=== PATIENT | female | born 1955 | race Caucasian/White ===

== ENCOUNTER 2019-06-23 07:18 | Outpatient (CLI) | payer MEDICARE, SELFPAY | END 2019-06-23 07:19 | disposition home or self-care (01) | LOC: RT 07:24 | PROVIDERS: Family Provider Nurse Practitioner Family; Visit Provider Family Medicine | DX: J44.9 Chronic obstructive pulmonary disease, unspecified (principal); Z71.6 Tobacco abuse counseling; Z86.711 Personal history of pulmonary embolism; E46 Unspecified protein-calorie malnutrition; R10.9 Unspecified abdominal pain | CPT/HCPCS: 94060; 94729; J7611 ==

== ENCOUNTER 2019-12-15 21:03 | Inpatient (IN) | payer MEDICARE, SELFPAY ==
--- NOTE | 2019-12-15 21:10 | XRR_ITS ---
PROCEDURE INFORMATION: Exam: XR Right Humerus Exam date and time: 12/15/2019 10:09 PM Age: 64 years old Clinical indication: Injury or trauma; Fall; Initial encounter; Blunt trauma (contusions or hematomas; Shoulder and arm, upper; Right; Additional info: Fall, deformity TECHNIQUE: Imaging protocol: XR Right humerus Views: 2 or more views. COMPARISON: No relevant prior studies available. FINDINGS: Bones/joints: Acute fractures involving the right humeral neck and mid right humeral diaphysis with medial displacement of the humeral neck distal fracture fragment and lateral displacement of the diaphyseal distal fracture fragment. Osteopenia. Soft tissues: Soft tissue swelling. XR/[place] [id number] IMPRESSION: Acute fractures involving the right humeral neck and mid right humeral diaphysis with medial displacement of the humeral neck distal fracture fragment and lateral displacement of the diaphyseal distal fracture fragment.
[2019-12-15 21:19] VITALS: BP 50/37; PULSE 61; RESP 14; O2SAT 93; BMI 14.1
--- NOTE | 2019-12-15 21:25 | PC.NURSE ---
WARM BLANKETS PLACED ON PT.
--- NOTE | 2019-12-15 21:26 | ECG_ITS ---
[facility] Test Date: 2019-12-15 Pat Name: Anne Marie Underwood Department: Room: Gender: Female Kier Drier: : 1955 Requested By: Rachel Shlel Order Number: [id number] Jovan MD: Nayla Bah M.D. Measurements Intervals [place] Rate: 73 P: 84 NC: 221 QRS: 1 QRSD: 140 T: 87 QT: 504 QTc: 559 Interpretive Statements SINUS RHYTHM WITH FIRST DEGREE AV BLOCK WITH OCCASIONAL SUPRAVENTRICULAR PREMATURE COMPLEXES LEFT BUNDLE BRANCH BLOCK Compared to ECG 03/20/2019 02:11:19 First degree AV block now present Sinus tachycardia no longer present Electronically Signed On 12-16-2019 12:44:48 CDT by Nayla Bah M.D. [id number]
[2019-12-15] MEDS: sodium chloride 0.9% 1,000 ML 999 ML IV (21:30)
--- NOTE | 2019-12-15 21:36 | ED_ITS ---
HPI - Extremity Problem General: Chief complaint: Extremity Injury, Upper Stated complaint: FALL / POSS FX R HUMERUS Time Seen by Provider: 12/15/19 21:06 History of Present Illness: HPI Narrative: This patient is a 64-year-old female presenting with reported fall at home. She said she tripped over my own feet . She denies hitting her head or loss of consciousness. Her only complaint is pain in her right upper arm. She is intoxicated. She tells me daly t she does not drink every day. She said she only had 1 drink today. She denies any other complaints. She was noted to have a blood pressure of 50 systolic by EMS. Gave her a 500 mL's of normal saline and her blood pressure after that was 110 systolic. On transferring her to the ED cot her blood pressure is noted to be again in the 50s systolic. Her heart rate is in the 60s with that. She does not have any knowledge of her blood pressure running low normally. Patient's son came in and said that he saw her fall. He said she was walking away from anything she just tripped and fell. He saw her arm snap. He lives with her and says that she has been in her normal state of good health recently. He says she drinks occasionally. The only medical history that he knows of is her history of PE. Complaint: extremity pain Onset (ago): unknown Pain Consistency: constant Location: right and upper extremity Quality: sharp Radiation: none Relieving factors: immobilization Exacerbating factors: range of motion Associated symptoms: Deny chest pain, fever(s) or rash Review of Systems General: Reports: 10 or more systems reviewed and unremarkable except in HPI and below Narrative: Reliability of the review of systems is questionable as the patient is intoxicated and fairly lethargic. Const: Denies: fever(s), chills, fatigue or malaise Eyes: Denies: change in vision ENMT: Denies: odynophagia Card: Denies: chest pain or swelling of feet/ankles Resp: Denies: dyspnea, productive cough or non-productive cough GI: Denies: abdominal pain, nausea or vomiting : Denies: flank pain or difficulty voiding Musc: Denies: neck pain or back pain Skin/Breast: Denies: rash Neuro: Denies: headache(s), numbness in extremities or weakness in extremities Teja/Lymph: Denies: easy bruising or easy bleeding PFSH ED PFSH: Medical History Alcohol abuse COPD (chronic obstructive pulmonary disease) Depression Low back pain Occlusion of superior mesenteric artery Pulmonary embolism Surgical History History of appendectomy History of tonsillectomy History of tubal ligation Social History (Updated 12/16/19 @ 02:15 by Migue Jansen MD) Smoking and tobacco status: current every day smoker Alcohol intake: current Substance/Drug Use: never Physical Exam Const: COMMON NORMALS: no acute distress EXAM LIMITATIONS: altered mental status GENERAL APPEARANCE: disheveled, lethargic and frail appearing NUTRITIONAL APPEARANCE: underweight ORIENTATION/CONSCIOUSNESS: Yes lethargic HENMT: HEAD & SCALP: normal to inspection FACE & SINUS: normal facial exam Eye: GENERAL EYE: appearance normal, both eyes and all related structures Neck/C-Spine: COMMON NORMALS: supple, no meningeal signs and no JVD Chest: COMMONS NORMALS: normal inspection of the chest Resp: COMMON NORMALS: normal respiratory effort, No use of accessory muscles and clear to auscultation bilaterally AUSCULTATION: clear to auscultation bilaterally Cardio: COMMON NORMALS: no JVD, regular rate, regular rhythm and No murmurs present (Cardio) RATE: regular rate RHYTHM: regular rhythm GI: COMMON NORMALS: Normal to inspection, nondistended, normoactive bowel sounds present, Soft to palpation and non-tender INSPECTION: Yes normal to inspection AUSCULTATION: Yes normoactive bowel sounds PALPATION: Yes Soft to palpation Back/Pelvis: COMMON NORMALS: thoracic and lumbar spine normal to inspection Extremity: RIGHT UPPER EXTREMITY: Yes upper arm (Deformity, pain, swelling) Neuro: COMMON NORMALS: moves all extremities, no focal motor deficits and no sensory deficits noted SENSORIUM/ORIENTATION: Yes lethargic MENINGEAL SIGNS: Yes no meningeal signs Psych: COMMON NORMALS: cooperative ATTITUDE: Yes calm SPEECH: Yes minimal INSIGHT: Poor insight present (Psych) Skin: COMMON NORMALS: no rashes or lesions noted and turgor normal GENERAL SKIN EXAM: no rashes or lesions noted and turgor normal Course ED course: Patient will be admitted to Dr. Jansen to the ICU. I also spoke with Dr. So who will see her in consultation. She was holding her arm in a position of comfort with a Demarco splint and wrapped from EMS and we left it in this position. Her blood pressure did improve to over 100 systolic while in the department. Vital Signs: Vital signs: Vital Signs Temperature 99.3 F 12/16/19 10:45 Pulse Rate 94 12/16/19 14:25 Respiratory Rate 30 H 12/16/19 14:25 Blood Pressure 148/98 12/16/19 14:25 Pulse Oximetry 96 12/16/19 14:25 Critical Care Time Critical Care Time: Critical Care Time: Yes Total Critical Care Time: 45 Attestation: I provided 45 minutes of critical care time to this patient. This was reviewing lab results, calculating corrected lab results, repeating electrolytes and fluids. Frequent monitoring of blood pressure and mental status. Consultation with specialist. Obtaining further history from the patient's son. Review of prior records. MDM - Extremity (Nontraumatic) MDM Narrative: Medical decision making narrative: Fall with an obvious humerus fracture. She and her son both say that she did not pass out however her blood pressure on arrival was in the 50s systolic with a normal heart rate. Seems likely that she could have passed out related to that. She and her son both deny any recent illnesses. She had been given 500 mL's of fluid by EMS and was given the rest of that liter and another liter here in the ED. Her blood pressure did gradually improve to 100/65. Heart rate is now in the 70s. Sats are okay. Her labs reflect an alcohol level of 171. More concerning are her electrolytes which show a potassium of 2.2, magnesium of 1.1 and a calcium of 5.1 with the correction for a low albumin which is 1.5 the calcium is 7.4. I have ordered IV potassium, IV magnesium, IV calcium. I did give her a small dose of fentanyl for pain as her blood pressure improved. Her temperature on arrival was also noted to be low. Thyroid studies are pending. Sepsis is in the differential but I do not see any clear source of infection. I suspect this is more related to electrolyte abnormalities and malnutrition. Medical Records: Attestation: I reviewed the patient's medical records. Medical records narrative: History of PE in the past. Also prior medical records indicate that she is a daily drinker. Lab Data: Attestation: I reviewed the patient's lab results. Labs: Lab Results 12/15/19 12/15/19 12/15/19 Range/Units 00:16 21:28 21:28 WBC 4.3 (4.0-10.0) 10^3/ uL RBC 2.11 L (4.1-5.3) 10^6/u L Hgb 7.0 L (11.5-15.3) g/dL Hct 22.3 L (37.0-47.0) % MCV 105.7 H (81-99) fL MCH 33.2 (28.0-34.0) pg MCHC 31.4 (30.0-36.0) g/dL RDW 12.8 (12.1-15.1) % Plt Count 141 (130-400) 10^3/c mm MPV 10.4 (7.4-10.4) fL Neut % (Auto) 56.1 % Lymph % (Auto) 37.1 % Jerauld % (Auto) 5.6 % Eos % (Auto) 0.5 % Baso % (Auto) 0.2 % Neut # (Auto) 2.42 (1.8-7.7) 10^3/u L Lymph # (Auto) 1.6 (0.8-4.8) 10^3/u L Jerauld # (Auto) 0.2 (0.2-0.9) 10^3/u L Eos # (Auto) 0.0 (0.0-0.8) 10^3/u L Baso # (Auto) 0.0 (0.0-0.1) 10^3/u L Nucleated RBC % (a uto) 0 % Nucleated RBCs # 0.0 /100WBC PT (12.1-14.9) SECO NDS INR (0.8-1.2) D-Dimer (0-0.59) ug/mIFE U Sodium 134 L (136-145) mmol/L Potassium 2.2 L* (3.5-5.1) mmol/L Chloride 110 H (98-107) mmol/L Carbon Dioxide 16 L (22-29) mmol/L Anion Gap 10.2 (5-19) BUN 2 L (8-23) mg/dL Creatinine 0.3 L (0.5-0.9) mg/dL GFR Calculation 222.6 H (90-130) mL/min Glucose 77 (65-115) mg/dL POC Glucose (70-110) mg/dL Calculated Osmolal ity 272 L (285-295) mOsm/k g Lactate (0.5-2.2) mmol/L Calcium 5.1 L* (8.5-10.5) mg/dL Magnesium 1.1 L (1.7-2.3) mg/dL Total Bilirubin 0.2 (0.15-1.2) mg/dL AST 9 (0-32) U/L ALT < 5 (0-33) U/L Alkaline Phosphata se 29 L (35-105) IU/L Troponin T Baselin e (0-10) ng/L Troponin T 120 Min chitina (0-10) ng/L Delta Troponin T (0-10) ABS# Total Protein 2.6 L (6.6-8.7) g/dL Albumin 1.5 L (3.5-5.2) g/dL Globulin 1.1 L (1.3-4.6) g/dL Lipase 13 (13-60) U/L Procalcitonin 0.04 (0-0.5) ng/mL TSH (0.27-4.20) uIU/ mL Free T4 (0.82-1.77) ng/d L Free T3 (2.0-4.4) PG/ML Ur Random Sodium 58 mmol/L Ur Random Potassiu m 9 mmol/L Ur Random Chloride 59 mmol/L Salicylates (3-10) mg/dL Acetaminophen (10-30) ug/mL Ethyl Alcohol 171 H (0-10) mg/dL Blood Type Rho(D) Type Antibody Screen Crossmatch 12/15/19 12/15/19 12/15/19 Range/Units 21:28 21:28 21:28 WBC (4.0-10.0) 10^3/ uL RBC (4.1-5.3) 10^6/u L Hgb (11.5-15.3) g/dL Hct (37.0-47.0) % MCV (81-99) fL MCH (28.0-34.0) pg MCHC (30.0-36.0) g/dL RDW (12.1-15.1) % Plt Count (130-400) 10^3/c mm MPV (7.4-10.4) fL Neut % (Auto) % Lymph % (Auto) % Jerauld % (Auto) % Eos % (Auto) % Baso % (Auto) % Neut # (Auto) (1.8-7.7) 10^3/u L Lymph # (Auto) (0.8-4.8) 10^3/u L Jerauld # (Auto) (0.2-0.9) 10^3/u L Eos # (Auto) (0.0-0.8) 10^3/u L Baso # (Auto) (0.0-0.1) 10^3/u L Nucleated RBC % (a uto) % Nucleated RBCs # /100WBC PT 20.40 H (12.1-14.9) SECO NDS INR 1.68 H (0.8-1.2) D-Dimer 1.15 H (0-0.59) ug/mIFE U Sodium (136-145) mmol/L Potassium (3.5-5.1) mmol/L Chloride (98-107) mmol/L Carbon Dioxide (22-29) mmol/L Anion Gap (5-19) BUN (8-23) mg/dL Creatinine (0.5-0.9) mg/dL GFR Calculation (90-130) mL/min Glucose (65-115) mg/dL POC Glucose (70-110) mg/dL Calculated Osmolal ity (285-295) mOsm/k g Lactate 3.4 H (0.5-2.2) mmol/L Calcium (8.5-10.5) mg/dL Magnesium (1.7-2.3) mg/dL Total Bilirubin (0.15-1.2) mg/dL AST (0-32) U/L ALT (0-33) U/L Alkaline Phosphata se (35-105) IU/L Troponin T Baselin e 7 (0-10) ng/L Troponin T 120 Min chitina (0-10) ng/L Delta Troponin T (0-10) ABS# Total Protein (6.6-8.7) g/dL Albumin (3.5-5.2) g/dL Globulin (1.3-4.6) g/dL Lipase (13-60) U/L Procalcitonin (0-0.5) ng/mL TSH (0.27-4.20) uIU/ mL Free T4 (0.82-1.77) ng/d L Free T3 (2.0-4.4) PG/ML Ur Random Sodium mmol/L Ur Random Potassiu m mmol/L Ur Random Chloride mmol/L Salicylates (3-10) mg/dL Acetaminophen (10-30) ug/mL Ethyl Alcohol (0-10) mg/dL Blood Type Rho(D) Type Antibody Screen Crossmatch 12/15/19 12/15/19 12/15/19 Range/Units 21:28 21:28 21:28 WBC (4.0-10.0) 10^3/ uL RBC (4.1-5.3) 10^6/u L Hgb (11.5-15.3) g/dL Hct (37.0-47.0) % MCV (81-99) fL MCH (28.0-34.0) pg MCHC (30.0-36.0) g/dL RDW (12.1-15.1) % Plt Count (130-400) 10^3/c mm MPV (7.4-10.4) fL Neut % (Auto) % Lymph % (Auto) % Jerauld % (Auto) % Eos % (Auto) % Baso % (Auto) % Neut # (Auto) (1.8-7.7) 10^3/u L Lymph # (Auto) (0.8-4.8) 10^3/u L Jerauld # (Auto) (0.2-0.9) 10^3/u L Eos # (Auto) (0.0-0.8) 10^3/u L Baso # (Auto) (0.0-0.1) 10^3/u L Nucleated RBC % (a uto) % Nucleated RBCs # /100WBC PT (12.1-14.9) SECO NDS INR (0.8-1.2) D-Dimer (0-0.59) ug/mIFE U Sodium (136-145) mmol/L Potassium (3.5-5.1) mmol/L Chloride (98-107) mmol/L Carbon Dioxide (22-29) mmol/L Anion Gap (5-19) BUN (8-23) mg/dL Creatinine (0.5-0.9) mg/dL GFR Calculation (90-130) mL/min Glucose (65-115) mg/dL POC Glucose (70-110) mg/dL Calculated Osmolal ity (285-295) mOsm/k g Lactate (0.5-2.2) mmol/L Calcium (8.5-10.5) mg/dL Magnesium (1.7-2.3) mg/dL Total Bilirubin (0.15-1.2) mg/dL AST (0-32) U/L ALT (0-33) U/L Alkaline Phosphata se (35-105) IU/L Troponin T Baselin e (0-10) ng/L Troponin T 120 Min chitina 10.09 H (0-10) ng/L Delta Troponin T 3.09 (0-10) ABS# Total Protein (6.6-8.7) g/dL Albumin (3.5-5.2) g/dL Globulin (1.3-4.6) g/dL Lipase (13-60) U/L Procalcitonin (0-0.5) ng/mL TSH 8.80 H (0.27-4.20) uIU/ mL Free T4 1.00 (0.82-1.77) ng/d L Free T3 2.4 (2.0-4.4) PG/ML Ur Random Sodium mmol/L Ur Random Potassiu m mmol/L Ur Random Chloride mmol/L Salicylates < 0.3 L (3-10) mg/dL Acetaminophen < 5.0 L (10-30) ug/mL Ethyl Alcohol (0-10) mg/dL Blood Type Rho(D) Type Antibody Screen Crossmatch 12/15/19 12/15/19 Range/Units 22:13 22:18 WBC (4.0-10.0) 10^3/ uL RBC (4.1-5.3) 10^6/u L Hgb (11.5-15.3) g/dL Hct (37.0-47.0) % MCV (81-99) fL MCH (28.0-34.0) pg MCHC (30.0-36.0) g/dL RDW (12.1-15.1) % Plt Count (130-400) 10^3/c mm MPV (7.4-10.4) fL Neut % (Auto) % Lymph % (Auto) % Jerauld % (Auto) % Eos % (Auto) % Baso % (Auto) % Neut # (Auto) (1.8-7.7) 10^3/u L Lymph # (Auto) (0.8-4.8) 10^3/u L Jerauld # (Auto) (0.2-0.9) 10^3/u L Eos # (Auto) (0.0-0.8) 10^3/u L Baso # (Auto) (0.0-0.1) 10^3/u L Nucleated RBC % (a uto) % Nucleated RBCs # /100WBC PT (12.1-14.9) SECO NDS INR (0.8-1.2) D-Dimer (0-0.59) ug/mIFE U Sodium (136-145) mmol/L Potassium (3.5-5.1) mmol/L Chloride (98-107) mmol/L Carbon Dioxide (22-29) mmol/L Anion Gap (5-19) BUN (8-23) mg/dL Creatinine (0.5-0.9) mg/dL GFR Calculation (90-130) mL/min Glucose (65-115) mg/dL POC Glucose 97 (70-110) mg/dL Calculated Osmolal ity (285-295) mOsm/k g Lactate (0.5-2.2) mmol/L Calcium (8.5-10.5) mg/dL Magnesium (1.7-2.3) mg/dL Total Bilirubin (0.15-1.2) mg/dL AST (0-32) U/L ALT (0-33) U/L Alkaline Phosphata se (35-105) IU/L Troponin T Baselin e (0-10) ng/L Troponin T 120 Min chitina (0-10) ng/L Delta Troponin T (0-10) ABS# Total Protein (6.6-8.7) g/dL Albumin (3.5-5.2) g/dL Globulin (1.3-4.6) g/dL Lipase (13-60) U/L Procalcitonin (0-0.5) ng/mL TSH (0.27-4.20) uIU/ mL Free T4 (0.82-1.77) ng/d L Free T3 (2.0-4.4) PG/ML Ur Random Sodium mmol/L Ur Random Potassiu m mmol/L Ur Random Chloride mmol/L Salicylates (3-10) mg/dL Acetaminophen (10-30) ug/mL Ethyl Alcohol (0-10) mg/dL Blood Type B Positive Rho(D) Type Positive Antibody Screen Negative Crossmatch See Detail EKG Data^: EKG 1: EKG interpretation time: 21:52 Interpretation: Sinus rhythm with a rate of 73. First-degree AV block present with a MD interval of 221. QRS duration is 140. Morphology is a left bundle branch block. She does have very flat T waves in V2 and inverted T waves in V3 as well as V4. Discharge Plan Discharge Patient Disposition: Admitted As Inpatient Admit Provider: Migue Jansen Clinical Impression: Acute hypotension, Hypoalbuminemia, Acute hypokalemia, Hypomagnesemia, Hypocalcemia Fracture of humerus Qualifiers: Encounter type: initial encounter Humerus Location: shaft Fracture type: closed Fracture morphology: oblique Fracture alignment: displaced Laterality: right Qualified Code(s): S42.331A - Displaced oblique fracture of shaft of humerus, right arm, initial encounter for closed fracture Hypothermia Qualifiers: Encounter type: initial encounter Qualified Code(s): T68.XXXA - Hypothermia, initial encounter Alcohol intoxication Qualifiers: Complication of substance-induced condition: with unspecified complication Qualified Code(s): F10.929 - Alcohol use, unspecified with intoxication, unspecified Condition: Stable Discharge Date/Time: 12/16/19 00:30 Coding Level of Care Code ED Fill Plant Operator for Rashad Castrejon Exam Comprehensive
--- NOTE | 2019-12-15 21:38 | CTR_ITS ---
PROCEDURE INFORMATION: Exam: CT Head Without Contrast Exam date and time: 12/15/2019 10:07 PM Age: 64 years old Clinical indication: Injury or trauma; Fall; Additional info: Fall, altered mental status TECHNIQUE: Imaging protocol: Computed tomography of the head without contrast. Radiation optimization: All CT scans at this facility use at least one of these dose optimization techniques: automated exposure control; mA and/or kV adjustment per patient size (includes targeted exams where dose is matched to clinical indication); or iterative reconstruction. COMPARISON: No relevant prior studies available. RADIATION DOSE METRICS: Total DLP (mGy-cm): 807.56 FINDINGS: Brain: Mild sulcal widening is an age related change. Mild frontal periventricular microangiopathy. No CT evidence for acute ischemia, mass or hemorrhage. Ventricles: Normal. No ventriculomegaly. Bones/joints: Unremarkable. No acute fracture. Sinuses: Visualized sinuses are unremarkable. No fluid levels. Mastoid air cells: Visualized mastoid air cells are well aerated. Soft tissues: Unremarkable. CT/CT head wo con* [id number] IMPRESSION: No acute intracranial findings. Radiation Dose CTDIVOL = (mGy): DLP = 807.56 (mGy-cm)
[2019-12-15 21:47] VITALS: TEMP 34.7
--- NOTE | 2019-12-15 21:49 | PC.NURSE ---
Addendum entered by Richard Hawthorne RN 12/15/19 21:50: INFORMED DR. COOK AT 2130 Original Note: INFORMED DR. COOK OF BP OF 55/37 AND ORAL TEMP OF 94.4 VERBALIZED UNDERSTANDING VO TO ADM WARM NS BOLUS.
--- NOTE | 2019-12-15 21:57 | PC.NURSE ---
EKG done at 2150 and shown to ER doctor
[2019-12-15 21:59] LABS: Basophils % 0.2 %; Eosinophils % 0.5 %; Hematocrit 22.3 % (37.0-47.0); Lymphocytes # 1.6 10^3/uL (0.8-4.8); Lymphocytes % 37.1 %; Mean Corpuscular HGB Conc 31.4 g/dL (30.0-36.0); Mean Corpuscular Hemoglobin 33.2 pg (28.0-34.0); Mean Corpuscular Volume 105.7 fL (81-99); Mean Platelet Volume 10.4 fL (7.4-10.4); Monocytes # 0.2 10^3/uL (0.2-0.9); Monocytes % 5.6 %; Neutrophils # 2.42 10^3/uL (1.8-7.7); Neutrophils % 56.1 %; Nucleated Red Blood Cells % 0 %; Platelet Count 141 10^3/cmm (130-400); Red Blood Count 2.11 10^6/uL (4.1-5.3); Red Cell Distribution Width 12.8 % (12.1-15.1); White Blood Count 4.3 10^3/uL (4.0-10.0)
[2019-12-15 22:02] VITALS: BP 75/49; PULSE 65; RESP 14; O2SAT 97
--- NOTE | 2019-12-15 22:05 | XR_ITS ---
WS: [id number] PORTABLE CHEST HISTORY: AMS, hypotension COMPARISON: 04/17/2019 Radiograph is performed with the patient's RIGHT hand posture upper thorax. Hyperexpanded lungs with emphysema and prior granulomatous disease. Portions of the lungs cannot be e valuated due to overlying extremity. No pleural effusion or pneumothorax. Cardiac size: Normal. Mediastinum/Aorta: Mild atherosclerosis aorta. Severe osteopenia. Comminuted fracture involving the proximal RIGHT humerus. XR/XR chest 1V portable [id number] IMPRESSION: 1. Limited evaluation of the chest. 2. Chronic emphysema. 3. Comminuted fracture proximal RIGHT humerus.
[2019-12-15 22:07] LABS: INR 1.68 (0.8-1.2)
[2019-12-15 22:10] LABS: D Dimer 1.15 ug/mIFEU (0-0.59)
[2019-12-15 22:20] LABS: Lactate (Lactic Acid level) 3.4 mmol/L (0.5-2.2)
--- NOTE | 2019-12-15 22:21 | PC.NURSE ---
PT TO CT VIA [employer] AND STRETCHER. PT IS IN NAD.
[2019-12-15 22:22] LABS: Troponin(5th) Baseline 7 ng/L (0-10)
[2019-12-15 22:27] LABS: Glucose Point of Care 97 mg/dL (70-110)
--- NOTE | 2019-12-15 22:27 | CTR_ITS ---
PROCEDURE INFORMATION: Exam: CT Angiography Chest With Contrast Exam date and time: 12/15/2019 10:35 PM Age: 64 years old Clinical indication: Shortness of breath and other: Hypotension; Additional info: Hypotension, h/o pe TECHNIQUE: Imaging protocol: Computed tomographic angiography of the chest with intravenous contrast. 3D rendering: MIP and/or 3D reconstructed images were created by the technologist. Radiation optimization: All CT scans at this facility use at least one of these dose optimization techniques: automated exposure control; mA and/or kV adjustment per patient size (includes targeted exams where dose is matched to clinical indication); or iterative reconstruction. Contrast material: VISI 320; Contrast volume: 77 ml; Contrast route: INTRAVENOUS (IV); COMPARISON: CTA Chest-Pulmonary Emb [id number] 03/19/2019 9:18 PM RADIATION DOSE METRICS: Total DLP (mGy-cm): 441.28 FINDINGS: Pulmonary arteries: Overall exam quality is good for evaluating the pulmonary arteries. There is a single peripheral pulmonary embolus in the left lower lobe lateral basal segment. No central or saddle embolus. Aorta: Unremarkable. No aortic aneurysm. No aortic dissection. Other arteries: Heavy atherosclerosis throughout the arterial tree including the aorta, coronary arteries and mesenteric arteries. There is also a chronic high-grade stenosis in the superior mesenteric artery producing near occlusion. However no change since 2019. Lungs: Generalized centrilobular emphysema has an upper lobe predominance and is also company by mild fibrosis. No pneumonia or mass. Pleural space: Unremarkable. No pneumothorax. No pleural effusion. Heart: No evidence of right ventricular strain. Lymph nodes: Unremarkable. No enlarged lymph nodes. Bones/joints: Unremarkable. No acute fracture. Soft tissues: Unremarkable. CT/CT angio chest PE protcl [id number] IMPRESSION: 1. Single small left lower lobe pulmonary embolus. No central or saddle embolus. 2. Generalized emphysema with mild fibrosis. 3. Advanced atherosclerosis including chronic high-grade stenosis of the SMA. No change since last year Radiation Dose CTDIVOL = (mGy): DLP = 441.28 (mGy-cm)
[2019-12-15 22:31] LABS: Acetaminophen < 5.0 ug/mL (10-30); Salicylate < 0.3 mg/dL (3-10)
--- NOTE | 2019-12-15 22:35 | PC.NURSE ---
in ct with pt. pt is in nad.
[2019-12-15] MEDS: iodixanol 320 mg/mL 100mL Btl IV (22:38)
[2019-12-15 22:42] LABS: Alanine Aminotransferase < 5 U/L (0-33); Albumin Level 1.5 g/dL (3.5-5.2); Alcohol Level 171 mg/dL (0-10); Alkaline Phosphatase 29 IU/L (35-105); Anion Gap 10.2 (5-19); Aspartate Amino Transferase 9 U/L (0-32); Blood Urea Nitrogen 2 mg/dL (8-23); Carbon Dioxide 16 mmol/L (22-29); Chloride 110 mmol/L (98-107); Globulin 1.1 g/dL (1.3-4.6); Glomerular Filtration Rate 222.6 mL/min (90-130); Glucose 77 mg/dL (65-115); Lipase 13 U/L (13-60); Magnesium 1.1 mg/dL (1.7-2.3); Osmolality Calculated 272 mOsm/kg (285-295); Sodium 134 mmol/L (136-145); Total Bilirubin 0.2 mg/dL (0.15-1.2); Total Protein 2.6 g/dL (6.6-8.7)
--- NOTE | 2019-12-15 22:45 | PC.NURSE ---
pt back in room for ct pt bp is 86/[address] carroll no further orders.
[2019-12-15 22:55] VITALS: RESP 12; TEMP 34.8; O2SAT 99
[2019-12-15] MEDS: fentaNYL 50 mcg/mL INJ 2mL 25 MCG IVP (22:55)
--- NOTE | 2019-12-15 22:56 | PC.NURSE ---
ORAL TEMPATURE IS 94.6 F ADDITIONAL BLANKETS APPLIED TO PT.
[2019-12-15 22:57] LABS: Calcium 5.1 mg/dL (8.5-10.5); Potassium 2.2 mmol/L (3.5-5.1)
--- NOTE | 2019-12-15 23:00 | PC.NURSE ---
REPORT GIVEN TO ANGELA CADE ASSUMED CARE.
[2019-12-15 23:07] LABS: Procalcitonin 0.04 ng/mL (0-0.5)
--- NOTE | 2019-12-15 23:26 | ECG_ITS ---
[facility] Test Date: 2019-12-15 Pat Name: Anne Marie Underwood Department: Room: Gender: Female Unemployment Inspector: : 1955 Requested By: Rachel Shell Order Number: [id number] Jovan MD: Nayla Bah M.D. Measurements Intervals [place] Rate: 81 P: 82 CT: 194 QRS: 57 QRSD: 138 T: 108 QT: 432 QTc: 502 Interpretive Statements SINUS RHYTHM WITH FREQUENT SUPRAVENTRICULAR PREMATURE COMPLEXES LEFT BUNDLE BRANCH BLOCK Compared to ECG 12/15/2019 21:49:54 First degree AV block no longer present Electronically Signed On 12-16-2019 12:55:21 CDT by Nayla Bah M.D. [id number]
[2019-12-15] MEDS: magnesium sulfate premix 2 GM/50 ML PIGGYBACK IV (23:27)
--- NOTE | 2019-12-15 23:41 | PC.NURSE ---
EKG done at 2340 and shown to ER doctor
[2019-12-15 23:46] LABS: Troponin 5 2HR 10.09 ng/L (0-10); Troponin 5 2HR Delta 3.09 ABS# (0-10)
--- NOTE | 2019-12-15 23:55 | PM.HP ---
Providers/Chief Complaint Chief Complaint: FALL / POSS FX R HUMERUS History of Present Illness Anne Marie Underwood is a 64 year old female that presents after a fall with right upper extremity pain. She states she fell because she tripped. She denies any dizziness, headache, or other injuries other than her right arm. She reports she had several drinks in the last 24 hours but previously had cut back. She states she has been taking her anticoagulant for pulmonary embolism. Denies any blood in her stool, black or tarry stools, or shortness of breath. She does not have any chest discomfort. She was hospitalized March 2019 with a pulmonary embolism. No significant anti-inflammatory use. Review of Systems General: Reports: 10 or more systems reviewed and unremarkable except in HPI and below Const: Denies: fever(s) or chills Eyes: Denies: change in vision ENMT: Denies: throat pain Card: Denies: chest pain Resp: Denies: dyspnea GI: Denies: abdominal pain, heartburn, diarrhea, hematochezia or melena : Denies: flank pain Musc: Denies: neck pain Skin/Breast: Denies: rash Neuro: Denies: headache(s) Psych: Denies: anxiety Endo: Denies: polyuria Teja/Lymph: Denies: easy bruising All/Imm: Denies: urticaria Medications/Allergies Allergies Allergy/AdvReac Type Severity Reaction Status Date / Time codeine Allergy ADR-Vomitin Verified 12/15/19 21:18 g PFSH Acute PFSH: Medical History (Updated 12/16/19 @ 02:20 by Migue Jansen MD) Alcohol abuse COPD (chronic obstructive pulmonary disease) Depression Low back pain Occlusion of superior mesenteric artery Pulmonary embolism Surgical History (Updated 12/16/19 @ 02:14 by Migue Jansen MD) History of appendectomy History of tonsillectomy History of tubal ligation Social History (Updated 12/16/19 @ 02:15 by Migue Jansen MD) Smoking and tobacco status: current every day smoker Alcohol intake: current Substance/Drug Use: never Supplemental PFSH Information: Denies any significant family history Vitals/I&O/Wt Last Vital Signs Temp 94.6 F L 12/15/19 22:55 Pulse 65 12/15/19 22:02 Resp 12 12/15/19 22:55 BP 75/49 12/15/19 22:02 Pulse Ox 99 12/15/19 22:55 Weight last 48 hrs Weight 42.269 kg Physical Exam Narrative: EXAM NARRATIVE: General exam demonstrates a white female complaining of some right arm pain. HEENT: Pupils equally round. Oropharynx clear. Neck is supple no lymphadenopathy or thyromegaly Cardiovascular regular rate and rhythm without murmur, no S3 or S4 Lungs clear but with diminished breath sounds bilaterally. No wheezes Abdomen is soft with positive bowel sounds. No obvious organomegaly was deferred Extremities no cyanosis clubbing or edema. Right upper extremity in sling. Has good motor function of the hand. Distal radial pulse intact. Skin no rash Neuro no focal deficits Data : 12/15/19 21:28 12/15/19 21:28 Micro: Microbiology 12/15/19 23:22 Blood Culture - Preliminary Blood SPECIMEN COLLECTED 12/15/19 21:28 Blood Culture - Preliminary Blood SPECIMEN COLLECTED Other data: Humerus x-ray shows fracture proximal and mid humerus CTA demonstrated a small left lower lobe pulmonary embolism and atherosclerosis.(Previous CTA demonstrated right lower lobe pulmonary embolism) Head CT no acute changes EKG demonstrated sinus rhythm, normal axis, left bundle. D-dimer elevated at 1.1 INR elevated at 1.68 Lactic acid 3.4. Initial troponin VII with repeat 10 Albumin 1.5 Calcium 5.1 Magnesium 1.1 TSH 8.8 Urinalysis and urine drug screen negative. Alcohol level 171. Salicylate and acetaminophen level negative. A&P Assessment and plan (1) Fracture of humerus: Immobilize Orthopedic consultation Status: Acute Qualifiers: Encounter type: initial encounter Fracture alignment: displaced Fracture morphology: oblique Fracture type: closed Humerus Location: shaft Laterality: right Qualified Code(s): S42.331A - Displaced oblique fracture of shaft of humerus, right arm, initial encounter for closed fracture (2) Acute hypotension: Multiple factors including electrolyte abnormality, severe anemia, alcohol intake Check random cortisol level Status: Acute (3) Anemia: Transfusion ordered from the emergency department Check stool Hemoccult Repeat hemoglobin following transfusion Iron B12 and folate studies Protonix IV Status: Acute (4) Alcohol intoxication: Hydration Monitor for withdrawal May need CIWA protocol if withdrawal noted Status: Acute Qualifiers: Complication of substance-induced condition: with unspecified complication Qualified Code(s): F10.929 - Alcohol use, unspecified with intoxication, unspecified (5) Hypocalcemia: Supplement in the ER, repeat. Still low even after correction for albumin. Status: Acute (6) Hypomagnesemia: Supplement Status: Acute (7) Acute hypokalemia: Supplement Status: Acute (8) Hypoalbuminemia: Encourage nutrition when p.o. status initiated Status: Acute (9) Hypothermia: Multiple cofactors, repeat temperature after rewarming Status: Acute Qualifiers: Encounter type: initial encounter Qualified Code(s): T68.XXXA - Hypothermia, initial encounter (10) Pulmonary embolism: Hold anticoagulation currently. Does not appear to have hemodynamically significant pulmonary embolism. Severe anemia currently is of greater concern. Status: Acute Additional A&P Information Elevated lactic acid level Metabolic acidosis secondary to alcohol intake Abnormal TSH. Likely subclinical hypothyroidism. Consider initiating levothyroxine when p.o. intake started Was on anticoagulation at home with Kavita which she reports she was compliant. However we will hold considering severe acute anemia. SCDs Attestations Medical Necessity Statement*: Will need greater than 2 midnight stay for evaluation of severe anemia, humerus fracture, multiple electrolyte abnormalities Time Spent in Patient Care: Greater than 35 minutes Critical Care Time: 48 minutes spent in critical care time interviewing patient, discussing with ER physician, and making decisions at bedside in regards to this patient with multiple comorbidities, electrolyte abnormalities, severe anemia with high risk of decompensation. Coding Level of Care Code Acute [employer] Supervisor for [facility] Diagnoses Fracture of humerus S42.331A Encounter type: initial encounter Fracture alignment: displaced Fracture morphology: oblique Fracture type: closed Humerus Location: shaft Laterality: right Acute hypotension I95.9 Anemia D64.9 Alcohol intoxication F10.929 Complication of substance-induced condition: with unspecified complication Hypocalcemia E83.51 Hypomagnesemia E83.42 Acute hypokalemia E87.6 Hypoalbuminemia E88.09 Hypothermia T68.XXXA Encounter type: initial encounter Pulmonary embolism I26.99
[2019-12-16] VITALS (185 sets, daily range): BP systolic 74–156; BP diastolic 50–112; PULSE 68–114; RESP 10–30; TEMP 36.3–37.4; O2SAT 87–100; BMI 18.8
[2019-12-16 00:02] LABS: T3 Free 2.4 PG/ML (2.0-4.4)
--- NOTE | 2019-12-16 00:08 | PC.NURSE ---
Patient refused to get a Catheter placed. She said she has had one before and is not getting one this time. Dr. LUCIO.
[2019-12-16] MEDS: potassium chloride premix 40 MEQ/100 ML PREMIX 25 MEQ IV ×2 (00:10→03:08)
--- NOTE | 2019-12-16 00:46 | PC.NURSE ---
Admited to room ICU 7 placed on bedside monitor O2 Sats low 88% placed on 4LNC. BP low orders reviewed. Pt alert and oriented
[2019-12-16 00:49] LABS: Add Urine Microscopic? NO
[2019-12-16 00:51] LABS: Bilirubin Urine Neg (NEGATIVE); Blood Urine Neg (Negative); Glucose Urine UA Norm (Normal); Ketones Urine Negative (Negative); Leukocyte Esterase Urine Negative (Negative); Nitrate Urine Negative (Negative); Protein Urine Neg (Negative); Urine Appearance Clear (CLEAR); Urine Color Straw (Yellow); Urobilinogen Urine Norm (Negative); pH Urine 7 (5-7)
[2019-12-16 01:00] LABS: Amphetamines Screen Urine Negative (Negative); Barbiturates Screen Urine Negative (Negative); Benzodiazepines Screen Urine Negative (Negative); Cocaine Screen Urine Negative (Negative); Opiate Screen Urine Negative (Negative); PCP Screen Urine Negative (Negative); THC Screen Urine Negative (Negative)
[2019-12-16 02:38] LABS: Glucose Point of Care 105 mg/dL (70-110)
--- NOTE | 2019-12-16 02:48 | PC.NURSE ---
Pt refused brock catheter
[2019-12-16] MEDS: pantoprazole 40 mg SDV IVP (03:02)
[2019-12-16] MEDS: sodium chlor 0.9% + KCl 20 mEq 20 MEQ/1,000 ML BAG 125 MEQ IV (03:08)
[2019-12-16 03:20] LABS: Ferritin 142 ng/mL (15-150); Iron 41 ug/dL (37-145); Percent Saturation 18.8 % (20-50); Total Iron Binding Capacity 217 mcg/dl; Unsaturated Iron Binding 176 ug/dL (112-347); Vitamin B12 155 pg/mL (232-1245)
--- NOTE | 2019-12-16 03:26 | ECG_ITS ---
[facility] Test Date: 2019-12-16 Pat Name: Anne Marie Underwood Department: Room: ICU07 Gender: Female Compliance Tester: : [id number] Requested By: Rachel Shell Order Number: [id number] Jovan MD: Nayla Bah M.D. Measurements Intervals [place] Rate: 79 P: 86 AZ: 173 QRS: 46 QRSD: 123 T: 107 QT: 434 QTc: 498 Interpretive Statements SINUS RHYTHM Left bundle branch block WARNING: DATA QUALITY MAY AFFECT INTERPRETATION Compared to ECG 12/15/2019 23:39:16 Myocardial infarct finding now present Left bundle-branch block no longer present Electronically Signed On 12-16-2019 12:49:30 CDT by Nayla Bah M.D. [id number]
[2019-12-16 03:42] LABS: Add On to Lab Order(s) Added
[2019-12-16] MEDS: oxyCODONE-APAP 5-325 mg Tablet 1 TAB PO ×5 (03:53→23:18)
[2019-12-16 04:08] LABS: Hematocrit 51.7 % (37.0-47.0); Hemoglobin 16.3 g/dL (11.5-15.3)
[2019-12-16 04:40] LABS: Troponin 5 6HR 10.02 ng/L (0-10); Troponin 5 6HR Delta 3.02 ng/L (0-12)
[2019-12-16 05:03] LABS: Alanine Aminotransferase 11 U/L (0-33); Albumin Level 3.5 g/dL (3.5-5.2); Alkaline Phosphatase 72 IU/L (35-105); Blood Urea Nitrogen 3 mg/dL (8-23); Calcium 8.4 mg/dL (8.5-10.5); Carbon Dioxide 14 mmol/L (22-29); Chloride 100 mmol/L (98-107); Globulin 2.5 g/dL (1.3-4.6); Glomerular Filtration Rate 159.7 mL/min (90-130); Glucose 91 mg/dL (65-115); Osmolality Calculated 263 mOsm/kg (285-295); Sodium 129 mmol/L (136-145); Total Bilirubin 0.4 mg/dL (0.15-1.2)
[2019-12-16 05:07] LABS: Anion Gap 19.6 (5-19); Aspartate Amino Transferase 22 U/L (0-32); Potassium 4.6 mmol/L (3.5-5.1)
[2019-12-16 05:09] LABS: Folate Level 11.2 ng/mL (4.8-37.3)
[2019-12-16 05:12] LABS: Cortisol Random 16.79 ug/mL (2.47-19.5)
[2019-12-16 05:21] LABS: Magnesium 2.3 mg/dL (1.7-2.3)
[2019-12-16 06:42] LABS: ABG PCO2 32.7 mmHg (35-45); ABG PH Result 7.37 (7.35-7.45); Arterial Blood Gas Hematocrit 52.6 % (37-47); Blood Gas Operator Identificat JB; Blood Gas Sample Site Brachial, left; Blood Gas Sample Type Arterial; Oxygen Device NC; PO2 ABG 85.6 mmHg (80.0-100.0)
[2019-12-16 06:50] LABS: HGB O2 Sat 94.3 % (95-100); Ionized Calcium Level - ABG 1.2 mmol/L (1.1-1.4); Methemoglobin 0.8 % (0.4-1.5); Potassium Level - ABG 5.2 mmol/L (3.5-5.0); Total Hemoglobin 17.2 g/dL (12-16)
[2019-12-16 06:55] LABS: Hematocrit 47.5 % (37.0-47.0); Hemoglobin 16.1 g/dL (11.5-15.3)
--- NOTE | 2019-12-16 07:59 | PM.CONSULT ---
Providers/Reason For Consult Consulting Physican/Specialty*: Shamar So MD; orthopedic surgery Reason for Consult*: Fracture right humeral Attending Physician: Wale Aragon MD History of Present Illness History of Present Illness Anne Marie Underwood is a 64 year old female who she tripped and fell at a friend's on the back porch with immediate pain in her right arm. Her admission history and physical suggest that she had several drinks in a 24 hours prior to admission however she states this is not the case and she may have had 1 beer. She described immediate pain in her right upper extremity. She is seen in the emergency room with radiographs of the humerus revealing a segmental fracture of the right proximal humerus. She was noted to be hypotensive, severely anemic, hypo-calcemic, hypokalemic, and concerns are raised about alcohol withdrawal. She also had a history of a pulmonary embolus this March and was anticoagulated on Eliquis. She states her last dose was taken yesterday morning. Meds/Allergies Home Medications and Allergies Home Medications Medication Instructions Recorded Confirmed Last Taken Type apixaban [Eliquis] 5 mg PO BID 12/16/19 12/16/19 12/15/19 18:00 History fluticasone propion-salmeterol 2 inh INHALATION PRN PRN 12/16/19 12/16/19 Unknown History [Advair Diskus] Allergies Allergy/AdvReac Type Severity Reaction Status Date / Time codeine Allergy ADR-Vomitin Verified 12/15/19 21:18 g Current Medications Current Medications Generic Name Dose Route Start Last Admin Trade Name Freq PRN Reason Stop Dose Admin Oxycodone/Acetaminophen 1 tab 12/16/19 02:29 12/16/19 03:53 Percocet 5-325 Mg PO 1 tab Q4H PRN Administration SEVERE PAIN Pantoprazole Sodium 40 mg 12/16/19 02:30 12/16/19 03:02 Protonix IVP 40 mg Q12H RUBIA Administration PFSH Acute PFSH: Medical History Alcohol abuse COPD (chronic obstructive pulmonary disease) Depression Low back pain Occlusion of superior mesenteric artery Pulmonary embolism Surgical History History of appendectomy History of tonsillectomy History of tubal ligation Social History (Updated 12/16/19 @ 02:15 by Migue Jansen MD) Smoking and tobacco status: current every day smoker Alcohol intake: current Substance/Drug Use: never Vitals/I&O/Wt Last Vital Signs Temp 97.8 F 12/16/19 04:51 Pulse 100 12/16/19 07:34 Resp 17 12/16/19 07:34 BP 140/87 12/16/19 06:15 Pulse Ox 98 12/16/19 07:34 12/15/19 12/16/19 12/16/19 22:59 06:59 14:59 Intake Total 424.167 / 424.167 Output Total 1475 / 1475 Balance -1050.833 / -1050.833 Weight last 48 hrs Weight 110 lb Weight 93 lb 3 oz Physical Exam Narrative: EXAM NARRATIVE: On examination the patient is thin female looks older than stated age. She is awake and conversive. She seems to answer questions appropriately. Her right upper extremity is in a splint with the elbow flexed approximately 170 degrees. He has tenderness about her right shoulder and humerus with associated swelling She will flex and extend her ulnar 4 fingers of the right hand and extend and oppose her thumb. She can flex and extend her right wrist. Her sensation is intact to light touch. Data Micro: Micro: Microbiology 12/15/19 23:22 Blood Culture - Pr eliminary Blood SPECIMEN [facility] 12/15/19 21:28 Blood Culture - Pr eliminary Blood SPECIMEN [facility] Imaging^: Xray Ortho: My impression: Radiographs of the right humerus reveal a segmental humeral fracture. The patient has a fracture of her right humeral neck in the metaphyses and a spiral fracture of her distal diaphysis. Due to the segmental nature of the fracture with internal and external rotation of the humerus displacement was noted of the diaphyseal fragment and little additional information was gained about the proximal humerus A&P Assessment and plan (1) Fracture of humerus: Patient has unstable segmental fracture of her right humerus. There is significant displacement of the diaphyseal fragment. Fortunately I do not see any evidence of radial nerve injury. I discussed options with her. With the segmental nature degree of displacement I certainly think the best option will be open reduction internal fixation. The fracture is extends a bit distal and I do not think intramedullary joao will achieve sufficient distal fixation. I think this would best be handled with plating in this instance will likely be a dual plating with a proximal humeral plate and a diaphyseal plate. I discussed the magnitude of the procedure with her. I think she has a much higher risk of union and a better chance her overall function addressing the fracture in this matter. I told her without surgery it would be difficult control of fracture and I think her risk of nonunion and pain is much higher. 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 Will have to stop her anticoagulation and she will be at a higher risk for deep venous thromboses and pulmonary emboli. With her last dose of Eliquis yesterday morning we will need to hold that medication for 48 hours and surgery will not be possible until . I discussed risk of bleeding and infection. She understands all of these and agrees to proceed. We will plan on proceeding with surgery on tomorrow 12/17/2019. Status: Acute Qualifiers: Encounter type: initial encounter Fracture alignment: displaced Fracture morphology: oblique Fracture type: closed Humerus Location: shaft Laterality: right Qualified Code(s): S42.331A - Displaced oblique fracture of shaft of humerus, right arm, initial encounter for closed fracture Coding Level of Care Code Acute [facility] Diagnoses Fracture of humerus S42.331A Encounter type: initial encounter Fracture alignment: displaced Fracture morphology: oblique Fracture type: closed Humerus Location: shaft Laterality: right
[2019-12-16] MEDS: thiamine 100 mg Tablet PO (08:45)
[2019-12-16] MEDS: cyanocobalamin 1,000 mcg/mL SDV 1000 MCG IM (11:23)
[2019-12-16] MEDS: folic acid 1 mg Tablet PO (11:24)
[2019-12-16] MEDS: multivitamin therapeutic Tablet 1 TAB PO (11:24)
[2019-12-16] MEDS: folic acid 1 MG, multivitamin inj 10 ML, thiamine 100 MG in sodium chloride 0.9% 1,000 ML 252.8 MG IV (11:24)
--- NOTE | 2019-12-16 11:36 | PM.PN ---
Subjective Subjective: Interval history: No acute events overnight. Patient admitted overnight. H&P and labs noted. On examination today lying comfortably in bed complaining of feeling hungry. Denies of any nausea, vomiting, headache, dizziness, palpitations, hallucinations. Complaining of mild pain in her arm. Vitals/I&O/Wt Last Vital Signs Temp 99.3 F 12/16/19 10:45 Pulse 71 12/16/19 10:05 Resp 14 12/16/19 10:05 BP 110/67 12/16/19 10:05 Pulse Ox 96 12/16/19 10:05 12/15/19 12/16/19 12/16/19 22:59 06:59 14:59 Intake Total 424.167 / 424.167 Output Total 1475 / 1475 Balance -1050.833 / -1050.833 Weight last 48 hrs Weight 49.895 kg Weight 42.269 kg Physical Exam Narrative: EXAM NARRATIVE: General exam demonstrates a white female complaining of some right arm pain. HEENT: Pupils equally round. Oropharynx clear. Neck is supple no lymphadenopathy or thyromegaly Cardiovascular regular rate and rhythm without murmur, no S3 or S4 Lungs clear but with diminished breath sounds bilaterally. No wheezes Abdomen is soft with positive bowel sounds. No obvious organomegaly was deferred Extremities no cyanosis clubbing or edema. Right upper extremity in sling. Has good motor function of the hand. Distal radial pulse intact. Skin no rash Neuro no focal deficits Data : 12/16/19 06:43 12/16/19 03:47 Micro: Microbiology 12/15/19 23:22 Blood Culture - Preliminary Blood SPECIMEN COLLECTED 12/15/19 21:28 Blood Culture - Preliminary Blood SPECIMEN COLLECTED A&P Assessment and plan (1) Alcohol intoxication: Status: Acute Qualifiers: Complication of substance-induced condition: with unspecified complication Qualified Code(s): F10.929 - Alcohol use, unspecified with intoxication, unspecified (2) Fracture of humerus: Status: Acute Qualifiers: Encounter type: initial encounter Fracture alignment: displaced Fracture morphology: oblique Fracture type: closed Humerus Location: shaft Laterality: right Qualified Code(s): S42.331A - Displaced oblique fracture of shaft of humerus, right arm, initial encounter for closed fracture (3) Pulmonary embolism: Status: Acute (4) Hypocalcemia: Status: Acute (5) Hypomagnesemia: Supplement Status: Acute (6) Acute hypokalemia: Supplement Status: Acute (7) Hypoalbuminemia: Encourage nutrition when p.o. status initiated Status: Acute (8) Hypothermia: Multiple cofactors, repeat temperature after rewarming. Resolved. Status: Acute Qualifiers: Encounter type: initial encounter Qualified Code(s): T68.XXXA - Hypothermia, initial encounter (9) Anemia: Transfusion ordered from the emergency department Check stool Hemoccult Repeat hemoglobin following transfusion Iron B12 and folate studies Protonix IV Status: Acute (10) Acute hypotension: Multiple factors including electrolyte abnormality, severe anemia, alcohol intake Check random cortisol level Status: Acute Additional A&P Information Alcohol intoxication: Banana bag. Vitamin B12 IM once. Folic acid, oral thiamine, multivitamin. Normal saline at 75 cc/h after banana bag. CIWA score and Ativan as needed. Fracture of humerus: Orthopedic consultation appreciated. Patient going to the OR tomorrow for fixation. Low-grade temperature: Most likely because of fracture. Patient's white count is normal, patient does not have any consolidation on chest x-ray and CT scan. UA negative for UTI. We will hold off on antibiotics and continue to monitor. Elevated lactic acid level Metabolic acidosis secondary to alcohol intake and poor oral intake. Continue IV hydration. Will repeat lactate level. COPD: Start patient on DuoNeb's every 6 hours. Patient is not decompensated. We will hold off on steroids. Oxygen supplementation keeping saturation over 90%. We will try to wean off oxygen as possible. History of pulmonary embolism: D-dimer still elevated. CT results appreciated. Still has small left lower lobe pulmonary embolism. Patient saturating 96% on 2 L nasal cannula. Patient states she does not require oxygen at home. Will wean off and see how she does. Patient takes Eliquis at home. Anticoagulation has been stopped because of poor plan tomorrow. Start patient on heparin drip without IV bolus. We will plan to stop the heparin drip at least 4 hours prior to the surgery. Multiple electrolyte abnormalities: Most likely because of chronic alcohol abuse. Electrolytes have been repleted. Patient does have hyponatremia at present. We will continue to monitor daily. Patient is at high risk of refeeding syndrome. Anemia: Most likely [facility] blood lab. Hemoglobin 16.1 which is at baseline as compared to hemoglobin from last March. Patient does have elevated MCV most likely because of chronic alcohol intoxication. Vitamin B12 levels are low. We will supplement vitamin B12 level as above. Abnormal TSH. Free T3-T4 normal. Subclinical hypothyroidism. Regular diet. Heparin drip will help with anticoagulation as well. Protonix for PUD prophylaxis. Can plan to transfer patient to [facility] floor. Attestations Medical Necessity Statement*: Tach intoxication, fracture humerus, multiple electrolyte abnormalities Time Spent in Patient Care: Greater than 35 minutes (>than 50% of time spent in counselling and/or direct pt care on unit). Coding Level of Care Code Acute Entry Level Marketing Representative for [facility] Fwd Diagnoses Alcohol intoxication F10.929 Complication of substance-induced condition: with unspecified complication Fracture of humerus S42.331A Encounter type: initial encounter Fracture alignment: displaced Fracture morphology: oblique Fracture type: closed Humerus Location: shaft Laterality: right Pulmonary embolism I26.99 Hypocalcemia E83.51 Hypomagnesemia E83.42 Acute hypokalemia E87.6 Hypoalbuminemia E88.09 Hypothermia T68.XXXA Encounter type: initial encounter Anemia D64.9 Acute hypotension I95.9
[2019-12-16 12:05] LABS: Platelet Count 235 10^3/cmm (130-400)
[2019-12-16] MEDS: heparin drip 25,000 UNIT/500 ML PREMIX 13 UNIT IV (12:54)
[2019-12-16 13:29] LABS: Lactic Sepsis W/Reflex 0.9 mmol/L (0.5-2.2)
[2019-12-16] MEDS: ipratropium-albuterol 3 mL Neb INHALATION ×2 (14:01→20:40)
[2019-12-16 14:17] LABS: Potassium, Radom Urine 9 mmol/L; Urine Random Chloride 59 mmol/L; Urine Random Sodium 58 mmol/L
--- NOTE | 2019-12-16 14:56 | PC.NURSE ---
transfer Patient was transferred to [facility] at 1445 by bed. All of patients belongings were with her and she tolerated transfer well. Patient was handed off to [facility] staff.
[2019-12-16] MEDS: sodium chloride 0.9% 1,000 ML 50 ML IV (15:54)
[2019-12-16] MEDS: heparin 5,000 unit/mL INJ 1 mL 900 UNIT INJECTION (21:20)
[2019-12-17] VITALS (16 sets, daily range): BP systolic 78–138; BP diastolic 52–95; PULSE 75–116; RESP 14–20; TEMP 36.6–37.7; O2SAT 88–100
--- NOTE | 2019-12-17 | XR_ITS ---
WS: [id number] C-ARM RADIOGRAPHS RIGHT HUMERUS; 8 IMAGES HISTORY: OR PICS COMPARISON: 12/15/2019 Intraoperative imaging for reduction and plate and screw fixation of the proximal and mid humeral fra ctures. Fractures in good position alignment. XR/[place] [id number] IMPRESSION: Status post fixation hardware placed across the proximal and mid humeral fractu res now in good alignment.
--- NOTE | 2019-12-17 | SCC_ITS ---
Procedure Done: Open reduction and internal fixation right proximal humerus, open reduction internal fixation right distal diaphysis 73.3 seconds of fluoroscopic guidance, for a cumulative dose of 2.51 mGy, was provided to Dr. So by the radiology department. C-arm images of the RIGHT humerus were saved for the patient's permanent record. [facility]
[2019-12-17 03:59] LABS: Estmated Average Glucose 146; Hemoglobin A1C 6.7 % (4.0-6.0)
[2019-12-17 04:08] LABS: Chol HDL Ratio 2.62 mg/dL (0.0-4.40); Cholesterol 173 mg/dL (0-200); HDL Cholesterol 66 mg/dL (60-100); LDL Cholesterol Calculated 91 mg/dL (50-129); Magnesium 1.8 mg/dL (1.7-2.3); Phosphorus 3.1 mg/dL (2.5-4.5); Triglycerides 82 mg/dL (0-150); VLDL Cholestrol Calculation 16 mg/dL (0-30)
[2019-12-17 04:14] LABS: Partial Thromboplastin Time 83.7 SECONDS (23.9-36.7)
[2019-12-17] MEDS: oxyCODONE-APAP 5-325 mg Tablet 1 TAB PO ×2 (04:39→09:08)
[2019-12-17] MEDS: ipratropium-albuterol 3 mL Neb INHALATION (08:25)
[2019-12-17] MEDS: sodium chloride 0.9% 1,000 ML 550 ML IV (09:06)
[2019-12-17] MEDS: multivitamin therapeutic Tablet 1 TAB PO (09:09)
[2019-12-17] MEDS: thiamine 100 mg Tablet PO (09:09)
[2019-12-17] MEDS: pantoprazole 40 mg SDV IVP (09:10)
[2019-12-17] MEDS: folic acid 1 mg Tablet PO (09:40)
[2019-12-17 09:41] LABS: Partial Thromboplastin Time 31.1 SECONDS (23.9-36.7)
--- NOTE | 2019-12-17 10:56 | PC.RESP ---
Smoking Cessation and Pulmonary Rehab information sent to patient.
--- NOTE | 2019-12-17 12:19 | XRR_ITS ---
PROCEDURE INFORMATION: Exam: XR Chest, 1 View Exam date and time: 12/17/2019 1:13 PM Age: 64 years old Clinical indication: Pre-operative exam; Respiratory screening exam; Patient HX: PT has fracture humerus RT; Exam for pre op purposes. No chest complaints; Additional info: Pna TECHNIQUE: Imaging protocol: XR of the chest Views: 1 view. COMPARISON: CR XR chest 1V portable [id number] 12/15/2019 10:33 PM FINDINGS: Lungs: Unremarkable. No consolidation. Pleural space: Unremarkable. No pleural effusion. No pneumothorax. Heart/Mediastinum: Unremarkable. No cardiomegaly. Bones/joints: Unremarkable. XR/XR chest 1V portable [id number] IMPRESSION: No acute findings.
--- NOTE | 2019-12-17 13:00 | P.PN_ITS ---
Subjective Subjective: Interval history: No acute events overnight. Patient has remained stable and comfortable. She has not required any Ativan. She denies of any nausea, vomiting. On examination sleeping comfortably in bed. Patient is due for over 18 the day today. Heparin drip was stopped around 7 AM early in the morning today in view of the OR today. Vitals/I&O/Wt Last Vital Signs Temp 98.8 F 12/17/19 10:59 Pulse 87 12/17/19 10:59 Resp 16 12/17/19 10:59 BP 104/72 12/17/19 10:59 Pulse Ox 91 12/17/19 10:59 12/16/19 12/17/19 12/17/19 22:59 06:59 14:59 Intake Total 1229.633 / 1279.633 80.5 / 1360.133 Output Total 250 / 550 800 / 1350 Balance 979.633 / 729.633 -719.5 / 10.133 Weight last 48 hrs Weight 48.194 kg Weight 49.895 kg Weight 42.269 kg Physical Exam 2 Narrative: EXAM NARRATIVE: General exam demonstrates a white female complaining of some right arm pain. HEENT: Pupils equally round. Oropharynx clear. Neck is supple no lymphadenopathy or thyromegaly Cardiovascular regular rate and rhythm without murmur, no S3 or S4 Lungs clear but with diminished breath sounds bilaterally. No wheezes Abdomen is soft with positive bowel sounds. No obvious organomegaly was deferred Extremities no cyanosis clubbing or edema. Right upper extremity in sling. Has good motor function of the hand. Distal radial pulse intact. Skin no rash Neuro no focal deficits Data : 12/17/19 02:56 12/16/19 03:47 Micro: Microbiology 12/15/19 23:22 Blood Culture - Preliminary Blood NEGATIVE TO DATE 12/15/19 21:28 Blood Culture - Preliminary Blood NEGATIVE TO DATE A&P Assessment and plan (1) Alcohol intoxication: Status: Acute Qualifiers: Complication of substance-induced condition: with unspecified complication Qualified Code(s): F10.929 - Alcohol use, unspecified with intoxication, unspecified (2) Fracture of humerus: Status: Acute Qualifiers: Encounter type: initial encounter Fracture alignment: displaced Fracture morphology: oblique Fracture type: closed Humerus Location: shaft Laterality: right Qualified Code(s): S42.331A - Displaced oblique fracture of shaft of humerus, right arm, initial encounter for closed fracture (3) Pulmonary embolism: Status: Acute (4) Hypocalcemia: Status: Acute (5) Hypomagnesemia: Supplement Status: Acute (6) Acute hypokalemia: Supplement Status: Acute (7) Hypoalbuminemia: Encourage nutrition when p.o. status initiated Status: Acute (8) Hypothermia: Multiple cofactors, repeat temperature after rewarming. Resolved. Status: Acute Qualifiers: Encounter type: initial encounter Qualified Code(s): T68.XXXA - Hypothermia, initial encounter (9) Anemia: Status: Acute (10) Acute hypotension: Multiple factors including electrolyte abnormality, severe anemia, alcohol intake Check random cortisol level Status: Acute Additional A&P Information Alcohol intoxication: No sign of alcohol withdrawal for now. Folic acid, oral thiamine, multivitamin. Normal saline at 50 cc/h. CIWA score and Ativan as needed. Fracture of humerus: Orthopedic consultation appreciated. Patient going to the OR for fixation and afternoon today. Low-grade temperature: Most likely because of fracture. Patient's white count is normal, patient does not have any consolidation on chest x-ray and CT scan. UA negative for UTI, pro-Ryne negative, white count has remained stable. We will hold off on antibiotics and continue to monitor. Elevated lactic acid level: Resolved. Metabolic acidosis secondary to alcohol intake and poor oral intake. Continue IV hydration. COPD: Start patient on DuoNeb's every 6 hours. Patient is not decompensated. We will hold off on steroids. Oxygen supplementation keeping saturation over 90%. We will try to wean off oxygen as possible. History of pulmonary embolism: D-dimer still elevated. CT results appreciated. Still has small left lower lobe pulmonary embolism. Patient saturating 96% on 2 L nasal cannula. Patient states she does not require oxygen at home. Will wean off and see how she does. Patient takes Eliquis at home. Anticoagulation has been stopped because of poor plan tomorrow. Heparin drip was continued till today morning. Stopped in view of the OR today. We will confirm with orthopedics when anticoagulation can be resumed postop eratively. Multiple electrolyte abnormalities: Most likely because of chronic alcohol abuse. Electrolytes have been repleted. We will continue to monitor daily. Patient is at high risk of refeeding syndrome. Anemia: Most likely error in lab. Hemoglobin 16.1 which is at baseline as compared to hemoglobin from last March. Vitamin B12 was given. Third supplementation as well. We will start patient on oral iron supplementation. Abnormal TSH. Free T3-T4 normal. Subclinical hypothyroidism. N.p.o. for now, postoperatively regular diet. Heparin drip will help with anticoagulation as well. Protonix for PUD prophylaxis. Can plan to transfer patient to [facility] floor. Attestations Medical Necessity Statement*: Alcohol intoxication, fracture of humerus, history of present embolism Time Spent in Patient Care: Greater than 35 minutes (>than 50% of time spe nt in counselling and/or direct pt care on unit) . Coding Level of Care Code Acute [employer] [facility] for [facility] Fwd Diagnoses Alcohol intoxication F10.929 Complication of substance-induced condition: with unspecified complication Fracture of humerus S42.331A Encounter type: initial encounter Fracture alignment: displaced Fracture morphology: oblique Fracture type: closed Humerus Location: shaft Laterality: right Pulmonary embolism I26.99 Hypocalcemia E83.51 Hypomagnesemia E83.42 Acute hypokalemia E87.6 Hypoalbuminemia E88.09 Hypothermia T68.XXXA Encounter type: initial encounter Anemia D64.9 Acute hypotension I95.9
--- NOTE | 2019-12-17 13:42 | PC.NURSE ---
surgery pt taken down surgery
--- NOTE | 2019-12-17 14:23 | P.ANESASSM_ITS ---
Pre-Anesthetic Assessment Pre-Anesthetic Assessment: Height/Weight: Height 1.63 m Weight 48.194 kg Temp Pulse Resp BP Pulse Ox 98.8 F 87 16 104/72 91 12/17/19 10:59 12/17/19 10:59 12/17/19 10:59 12/17/19 10:59 12/17/19 10:59 Preop Diagnosis: Right humerus fracture Proposed Procedure: Operation Date: 12/17/19 16:00 Proposed Procedures p ORIF Distal Humerus(Right) - Shamar So MD Familial anesthetic complications: none Last intake: Intake Last Liquid Date 12/16/19 Last Liquid Time 23:00 Last Solid Date 12/16/19 Last Solid Time 23:00 Social: Social History: Alcohol and Tobacco Comment: acute alcohol intoxi cation/chronic alcohol use- CIWA Exam: Pre-Anes Outpt Exam: alert, oriented x 3, clear to auscultation bilaterally and regular rate & rhythm Airway: Cervical ROM: WNL MP: 3 Dentition: Other (missing) Pulmonary: Pulmonary: COPD Comments: PE on eliquis CV/HEM: CV/HEM: Anemia Metabolic: Comments: Hypoalbuminemia w/ electrolyte abnormalities - correcting Anesthetic Plan: ASA status: 3 Anesthesia: General and Regional (specify below) Risk of > 500 ml blood loss (7ml/kg in children): No Meds/Allergies Current Medications: Current Medications Generic Name Dose Route Start Last Admin Trade Name Freq PRN Reason Stop Dose Admin Albuterol/Ipratrop ium 3 ml 12/16/19 12:00 12/17/19 08:53 Duoneb INHALATION Not Given Q6H.RESPIRATORY S CH Folic Acid 1 mg 12/16/19 11:15 12/17/19 09:40 Folic Acid PO 1 mg DAILY RUBIA Administration Heparin Sodium/Sod ium Chloride 25,000 unit in 50 0 mls @ 0 mls/hr 12/16/19 11:00 12/17/19 03:05 Heparin Drip IV 13 unit/kg/hr .Q0M RUBIA 13 mls/hr Titration Protocol Per Protocol Sodium Chloride 1,000 mls @ 50 ml s/hr 12/16/19 11:00 12/17/19 09:06 Sodium Chloride 0.9% IV 550 mls/hr .Q20H RUBIA Administration Multivitamins Ther apeutic 1 tab 12/16/19 11:15 12/17/19 09:09 Multivitamin Tab PO 1 tab DAILY RUBIA Administration Oxycodone/Acetamin ophen 1 tab 12/16/19 02:29 12/17/19 09:08 Percocet 5-325 M g PO 1 tab Q4H PRN Administration SEVERE PAIN Pantoprazole Sodiu m 40 mg 12/17/19 09:00 12/17/19 09:10 Protonix IVP 40 mg DAILY RUBIA Administration Thiamine Mononitra te 100 mg 12/16/19 09:00 12/17/19 09:09 Vitamin B-1 PO 100 mg DAILY RUBIA Administration PFSH Anesthesia PFSH: Medical History Alcohol abuse COPD (chronic obstructive pulmonary disease) Depression Low back pain Occlusion of superior mesenteric artery Pulmonary embolism Surgical History History of appendectomy History of tonsillectomy History of tubal ligation Social History (Updated 12/16/19 @ 02:15 by Migue Jansen MD) Smoking and tobacco status: current every day smoker Alcohol intake: current Substance/Drug Use: never Supplemental PFSH Information: Denies any significant family history Data Anesthesia CBC & Chem 7: 12/16/19 06:43 12/16/19 03:47 Other Labs: Laboratory Results - last 48 hr 12/15/19 12/15/19 12/15/19 00:16 21:28 21:28 WBC 4.3 RBC 2.11 L Hgb 7.0 L Hct 22.3 L MCV 105.7 H MCH 33.2 MCHC 31.4 RDW 12.8 Plt Count 141 MPV 10.4 Neut % (Auto) 56.1 Lymph % (Auto) 37.1 [place] % (Auto) 5.6 Eos % (Auto) 0.5 Baso % (Auto) 0.2 Neut # (Auto) 2.42 Lymph # (Auto) 1.6 [place] # (Auto) 0.2 Eos # (Auto) 0.0 Baso # (Auto) 0.0 Nucleated RBC % (auto) 0 Nucleated RBCs # 0.0 PT INR APTT D-Dimer Specimen Type Sample Site ABG pH ABG pCO2 ABG pO2 ABG HCO3 ABG O2 Saturation ABG Base Excess [place] Test A-a O2 Gradient Hematocrit Hgb O2 Saturation Carboxyhemoglobin Methemoglobin Total Hemoglobin Ionized Calcium O2 Delivery Device O2 Liters/Min Ships Or Barges Loader ID Sodium 134 L Potassium 2.2 L* Chloride 110 H Carbon Dioxide 16 L Anion Gap 10.2 BUN 2 L Creatinine 0.3 L GFR Calculation 222.6 H Glucose 77 POC Glucose Estimat Average Glucose Hemoglobin A1c Calculated Osmolality 272 L Lactic Acid Lactate Calcium 5.1 L* Phosphorus Magnesium 1.1 L Iron TIBC % Saturation Unsat Iron Binding Ferritin Total Bilirubin 0.2 AST 9 ALT < 5 Alkaline Phosphatase 29 L Troponin T Baseline Troponin T 120 Minute Delta Troponin T Troponin T Hi Sens 6Hr Troponin T Hi Sens 6Hr Delta Total Protein 2.6 L Albumin 1.5 L Globulin 1.1 L Triglycerides Cholesterol LDL Cholesterol, Calc Total VLDL Cholesterol HDL Cholesterol Cholesterol/HDL Ratio Lipase 13 Vitamin B12 Folate Procalcitonin 0.04 TSH Free T4 Free T3 Random Cortisol Urine Color Urine Appearance Urine pH Ur Specific [place] Urine Protein Urine Glucose (UA) Urine Ketones Urine Blood Urine Nitrate Urine Bilirubin Urine Urobilinogen Ur Leukocyte Esterase Ur Random Sodium 58 Ur Random Potassium 9 Ur Random Chloride 59 Salicylates Urine Opiates Screen Acetaminophen Ur Barbiturates Screen Ur Phencyclidine Scrn Ur Amphetamines Screen U Benzodiazepines Scrn Urine Cocaine Screen U Marijuana (THC) Screen Ethyl Alcohol 171 H Blood Type Rho(D) Type Antibody Screen Crossmatch 12/15/19 12/15/19 12/15/19 21:28 21:28 21:28 WBC RBC Hgb Hct MCV MCH MCHC RDW Plt Count MPV Neut % (Auto) Lymph % (Auto) [place] % (Auto) Eos % (Auto) Baso % (Auto) Neut # (Auto) Lymph # (Auto) [place] # (Auto) Eos # (Auto) Baso # (Auto) Nucleated RBC % (auto) Nucleated RBCs # PT 20.40 H INR 1.68 H APTT D-Dimer 1.15 H Specimen Type Sample Site ABG pH ABG pCO2 ABG pO2 ABG HCO3 ABG O2 Saturation ABG Base Excess [place] Test A-a O2 Gradient Hematocrit Hgb O2 Saturation Carboxyhemoglobin Methemoglobin Total Hemoglobin Ionized Calcium O2 Delivery Device O2 Liters/Min Ships Or Barges Loader ID Sodium Potassium Chloride Carbon Dioxide Anion Gap BUN Creatinine GFR Calculation Glucose POC Glucose Estimat Average Glucose Hemoglobin A1c Calculated Osmolality Lactic Acid Lactate 3.4 H Calcium Phosphorus Magnesium Iron TIBC % Saturation Unsat Iron Binding Ferritin Total Bilirubin AST ALT Alkaline Phosphatase Troponin T Baseline 7 Troponin T 120 Minute Delta Troponin T Troponin T Hi Sens 6Hr Troponin T Hi Sens 6Hr Delta Total Protein Albumin Globulin Triglycerides Cholesterol LDL Cholesterol, Calc Total VLDL Cholesterol HDL Cholesterol Cholesterol/HDL Ratio Lipase Vitamin B12 Folate Procalcitonin TSH Free T4 Free T3 Random Cortisol Urine Color Urine Appearance Urine pH Ur Specific [place] Urine Protein Urine Glucose (UA) Urine Ketones Urine Blood Urine Nitrate Urine Bilirubin Urine Urobilinogen Ur Leukocyte Esterase Ur Random Sodium Ur Random Potassium Ur Random Chloride Salicylates Urine Opiates Screen Acetaminophen Ur Barbiturates Screen Ur Phencyclidine Scrn Ur Amphetamines Screen U Benzodiazepines Scrn Urine Cocaine Screen U Marijuana (THC) Screen Ethyl Alcohol Blood Type Rho(D) Type Antibody Screen Crossmatch 12/15/19 12/15/19 12/15/19 21:28 21:28 21:28 WBC RBC Hgb Hct MCV MCH MCHC RDW Plt Count MPV Neut % (Auto) Lymph % (Auto) [place] % (Auto) Eos % (Auto) Baso % (Auto) Neut # (Auto) Lymph # (Auto) [place] # (Auto) Eos # (Auto) Baso # (Auto) Nucleated RBC % (auto) Nucleated RBCs # PT INR APTT D-Dimer Specimen Type Sample Site ABG pH ABG pCO2 ABG pO2 ABG HCO3 ABG O2 Saturation ABG Base Excess [place] Test A-a O2 Gradient Hematocrit Hgb O2 Saturation Carboxyhemoglobin Methemoglobin Total Hemoglobin Ionized Calcium O2 Delivery Device O2 Liters/Min Ships Or Barges Loader ID Sodium Potassium Chloride Carbon Dioxide Anion Gap BUN Creatinine GFR Calculation Glucose POC Glucose Estimat Average Glucose Hemoglobin A1c Calculated Osmolality Lactic Acid Lactate Calcium Phosphorus Magnesium Iron TIBC % Saturation Unsat Iron Binding Ferritin Total Bilirubin AST ALT Alkaline Phosphatase Troponin T Baseline Troponin T 120 Minute 10.09 H Delta Troponin T 3.09 Troponin T Hi Sens 6Hr Troponin T Hi Sens 6Hr Delta Total Protein Albumin Globulin Triglycerides Cholesterol LDL Cholesterol, Calc Total VLDL Cholesterol HDL Cholesterol Cholesterol/HDL Ratio Lipase Vitamin B12 Folate Procalcitonin TSH 8.80 H Free T4 1.00 Free T3 2.4 Random Cortisol Urine Color Urine Appearance Urine pH Ur Specific [place] Urine Protein Urine Glucose (UA) Urine Ketones Urine Blood Urine Nitrate Urine Bilirubin Urine Urobilinogen Ur Leukocyte Esterase Ur Random Sodium Ur Random Potassium Ur Random Chloride Salicylates < 0.3 L Urine Opiates Screen Acetaminophen < 5.0 L Ur Barbiturates Screen Ur Phencyclidine Scrn Ur Amphetamines Screen U Benzodiazepines Scrn Urine Cocaine Screen U Marijuana (THC) Screen Ethyl Alcohol Blood Type Rho(D) Type Antibody Screen Crossmatch 12/15/19 12/15/19 12/16/19 22:13 22:18 00:16 WBC RBC Hgb Hct MCV MCH MCHC RDW Plt Count MPV Neut % (Auto) Lymph % (Auto) [place] % (Auto) Eos % (Auto) Baso % (Auto) Neut # (Auto) Lymph # (Auto) [place] # (Auto) Eos # (Auto) Baso # (Auto) Nucleated RBC % (auto) Nucleated RBCs # PT INR APTT D-Dimer Specimen Type Sample Site ABG pH ABG pCO2 ABG pO2 ABG HCO3 ABG O2 Saturation ABG Base Excess [place] Test A-a O2 Gradient Hematocrit Hgb O2 Saturation Carboxyhemoglobin Methemoglobin Total Hemoglobin Ionized Calcium O2 Delivery Device O2 Liters/Min Ships Or Barges Loader ID Sodium Potassium Chloride Carbon Dioxide Anion Gap BUN Creatinine GFR Calculation Glucose POC Glucose 97 Estimat Average Glucose Hemoglobin A1c Calculated Osmolality Lactic Acid Lactate Calcium Phosphorus Magnesium Iron TIBC % Saturation Unsat Iron Binding Ferritin Total Bilirubin AST ALT Alkaline Phosphatase Troponin T Baseline Troponin T 120 Minute Delta Troponin T Troponin T Hi Sens 6Hr Troponin T Hi Sens 6Hr Delta Total Protein Albumin Globulin Triglycerides Cholesterol LDL Cholesterol, Calc Total VLDL Cholesterol HDL Cholesterol Cholesterol/HDL Ratio Lipase Vitamin B12 Folate Procalcitonin TSH Free T4 Free T3 Random Cortisol Urine Color Straw Urine Appearance Clear Urine pH 7 Ur Specific [place] 1.010 Urine Protein Neg Urine Glucose (UA) Norm Urine Ketones Negative Urine Blood Neg Urine Nitrate Negative Urine Bilirubin Neg Urine Urobilinogen Norm Ur Leukocyte Esterase Negative Ur Random Sodium Ur Random Potassium Ur Random Chloride Salicylates Urine Opiates Screen Acetaminophen Ur Barbiturates Screen Ur Phencyclidine Scrn Ur Amphetamines Screen U Benzodiazepines Scrn Urine Cocaine Screen U Marijuana (THC) Screen Ethyl Alcohol Blood Type B Positive Rho(D) Type Positive Antibody Screen Negative Crossmatch See Detail 12/16/19 12/16/19 12/16/19 00:16 02:23 02:34 WBC RBC Hgb Hct MCV MCH MCHC RDW Plt Count MPV Neut % (Auto) Lymph % (Auto) [place] % (Auto) Eos % (Auto) Baso % (Auto) Neut # (Auto) Lymph # (Auto) [place] # (Auto) Eos # (Auto) Baso # (Auto) Nucleated RBC % (auto) Nucleated RBCs # PT INR APTT D-Dimer Specimen Type Sample Site ABG pH ABG pCO2 ABG pO2 ABG HCO3 ABG O2 Saturation ABG Base Excess [place] Test A-a O2 Gradient Hematocrit Hgb O2 Saturation Carboxyhemoglobin Methemoglobin Total Hemoglobin Ionized Calcium O2 Delivery Device O2 Liters/Min Ships Or Barges Loader ID Sodium Potassium Chloride Carbon Dioxide Anion Gap BUN Creatinine GFR Calculation Glucose POC Glucose 105 Estimat Average Glucose Hemoglobin A1c Calculated Osmolality Lactic Acid Lactate Calcium Phosphorus Magnesium Iron 41 TIBC 217 % Saturation 18.8 L Unsat Iron Binding 176 Ferritin 142 Total Bilirubin AST ALT Alkaline Phosphatase Troponin T Baseline Troponin T 120 Minute Delta Troponin T Troponin T Hi Sens 6Hr Troponin T Hi Sens 6Hr Delta Total Protein Albumin Globulin Triglycerides Cholesterol LDL Cholesterol, Calc Total VLDL Cholesterol HDL Cholesterol Cholesterol/HDL Ratio Lipase Vitamin B12 155 L Folate Procalcitonin TSH Free T4 Free T3 Random Cortisol Urine Color Urine Appearance Urine pH Ur Specific [place] Urine Protein Urine Glucose (UA) Urine Ketones Urine Blood Urine Nitrate Urine Bilirubin Urine Urobilinogen Ur Leukocyte Esterase Ur Random Sodium Ur Random Potassium Ur Random Chloride Salicylates Urine Opiates Screen Negative Acetaminophen Ur Barbiturates Screen Negative Ur Phencyclidine Scrn Negative Ur Amphetamines Screen Negative U Benzodiazepines Scrn Negative Urine Cocaine Screen Negative U Marijuana (THC) Screen Negative Ethyl Alcohol Blood Type Rho(D) Type Antibody Screen Crossmatch 12/16/19 12/16/19 12/16/19 03:47 03:47 03:47 WBC RBC Hgb 16.3 H D Hct 51.7 H D MCV MCH MCHC RDW Plt Count MPV Neut % (Auto) Lymph % (Auto) [place] % (Auto) Eos % (Auto) Baso % (Auto) Neut # (Auto) Lymph # (Auto) [place] # (Auto) Eos # (Auto) Baso # (Auto) Nucleated RBC % (auto) Nucleated RBCs # PT INR APTT D-Dimer Specimen Type Sample Site ABG pH ABG pCO2 ABG pO2 ABG HCO3 ABG O2 Saturation ABG Base Excess [place] Test A-a O2 Gradient Hematocrit Hgb O2 Saturation Carboxyhemoglobin Methemoglobin Total Hemoglobin Ionized Calcium O2 Delivery Device O2 Liters/Min Ships Or Barges Loader ID Sodium 129 L Potassium 4.6 Chloride 100 Carbon Dioxide 14 L Anion Gap 19.6 H BUN 3 L Creatinine 0.4 L GFR Calculation 159.7 H Glucose 91 POC Glucose Estimat Average Glucose Hemoglobin A1c Calculated Osmolality 263 L Lactic Acid Lactate Calcium 8.4 L Phosphorus Magnesium Iron TIBC % Saturation Unsat Iron Binding Ferritin Total Bilirubin 0.4 AST 22 ALT 11 Alkaline Phosphatase 72 Troponin T Baseline Troponin T 120 Minute Delta Troponin T Troponin T Hi Sens 6Hr 10.02 H Troponin T Hi Sens 6Hr Delta 3.02 Total Protein 6.0 L D Albumin 3.5 Globulin 2.5 Triglycerides Cholesterol LDL Cholesterol, Calc Total VLDL Cholesterol HDL Cholesterol Cholesterol/HDL Ratio Lipase Vitamin B12 Folate Procalcitonin TSH Free T4 Free T3 Random Cortisol Urine Color Urine Appearance Urine pH Ur Specific [place] Urine Protein Urine Glucose (UA) Urine Ketones Urine Blood Urine Nitrate Urine Bilirubin Urine Urobilinogen Ur Leukocyte Esterase Ur Random Sodium Ur Random Potassium Ur Random Chloride Salicylates Urine Opiates Screen Acetaminophen Ur Barbiturates Screen Ur Phencyclidine Scrn Ur Amphetamines Screen U Benzodiazepines Scrn Urine Cocaine Screen U Marijuana (THC) Screen Ethyl Alcohol Blood Type Rho(D) Type Antibody Screen Crossmatch 12/16/19 12/16/19 12/16/19 03:47 03:47 03:47 WBC RBC Hgb Hct MCV MCH MCHC RDW Plt Count MPV Neut % (Auto) Lymph % (Auto) [place] % (Auto) Eos % (Auto) Baso % (Auto) Neut # (Auto) Lymph # (Auto) [place] # (Auto) Eos # (Auto) Baso # (Auto) Nucleated RBC % (auto) Nucleated RBCs # PT INR APTT D-Dimer Specimen Type Sample Site ABG pH ABG pCO2 ABG pO2 ABG HCO3 ABG O2 Saturation ABG Base Excess [place] Test A-a O2 Gradient Hematocrit Hgb O2 Saturation Carboxyhemoglobin Methemoglobin Total Hemoglobin Ionized Calcium O2 Delivery Device O2 Liters/Min Ships Or Barges Loader ID Sodium Potassium Chloride Carbon Dioxide Anion Gap BUN Creatinine GFR Calculation Glucose POC Glucose Estimat Average Glucose Hemoglobin A1c Calculated Osmolality Lactic Acid Lactate Calcium Phosphorus Magnesium 2.3 Iron TIBC % Saturation Unsat Iron Binding Ferritin Total Bilirubin AST ALT Alkaline Phosphatase Troponin T Baseline Troponin T 120 Minute Delta Troponin T Troponin T Hi Sens 6Hr Troponin T Hi Sens 6Hr Delta Total Protein Albumin Globulin Triglycerides Cholesterol LDL Cholesterol, Calc Total VLDL Cholesterol HDL Cholesterol Cholesterol/HDL Ratio Lipase Vitamin B12 Folate 11.2 Procalcitonin TSH Free T4 Free T3 Random Cortisol 16.79 Urine Color Urine Appearance Urine pH Ur Specific [place] Urine Protein Urine Glucose (UA) Urine Ketones Urine Blood Urine Nitrate Urine Bilirubin Urine Urobilinogen Ur Leukocyte Esterase Ur Random Sodium Ur Random Potassium Ur Random Chloride Salicylates Urine Opiates Screen Acetaminophen Ur Barbiturates Screen Ur Phencyclidine Scrn Ur Amphetamines Screen U Benzodiazepines Scrn Urine Cocaine Screen U Marijuana (THC) Screen Ethyl Alcohol Blood Type Rho(D) Type Antibody Screen Crossmatch 12/16/19 12/16/19 12/16/19 06:31 06:43 06:43 WBC RBC Hgb 16.1 H Hct 47.5 H MCV MCH MCHC RDW Plt Count 235 MPV Neut % (Auto) Lymph % (Auto) [place] % (Auto) Eos % (Auto) Baso % (Auto) Neut # (Auto) Lymph # (Auto) [place] # (Auto) Eos # (Auto) Baso # (Auto) Nucleated RBC % (auto) Nucleated RBCs # PT INR APTT D-Dimer Specimen Type Arterial Sample Site Brachial, left ABG pH 7.37 ABG pCO2 32.7 L ABG pO2 85.6 ABG HCO3 19.0 L ABG O2 Saturation 97.0 ABG Base Excess -5.0 L Glen Test N/a A-a O2 Gradient 3.0 L Hematocrit 52.6 H Hgb O2 Saturation 94.3 L Carboxyhemoglobin 2.0 Methemoglobin 0.8 Total Hemoglobin 17.2 H Ionized Calcium 1.2 O2 Delivery Device Nc O2 Liters/Min 3.0 Ships Or Barges Loader ID Jake Sodium 133.0 Potassium 5.2 H Chloride Carbon Dioxide Anion Gap BUN Creatinine GFR Calculation Glucose 84.0 POC Glucose Estimat Average Glucose Hemoglobin A1c Calculated Osmolality Lactic Acid Lactate Calcium Phosphorus Magnesium Iron TIBC % Saturation Unsat Iron Binding Ferritin Total Bilirubin AST ALT Alkaline Phosphatase Troponin T Baseline Troponin T 120 Minute Delta Troponin T Troponin T Hi Sens 6Hr Troponin T Hi Sens 6Hr Delta Total Protein Albumin Globulin Triglycerides Cholesterol LDL Cholesterol, Calc Total VLDL Cholesterol HDL Cholesterol Cholesterol/HDL Ratio Lipase Vitamin B12 Folate Procalcitonin TSH Free T4 Free T3 Random Cortisol Urine Color Urine Appearance Urine pH Ur Specific [place] Urine Protein Urine Glucose (UA) Urine Ketones Urine Blood Urine Nitrate Urine Bilirubin Urine Urobilinogen Ur Leukocyte Esterase Ur Random Sodium Ur Random Potassium Ur Random Chloride Salicylates Urine Opiates Screen Acetaminophen Ur Barbiturates Screen Ur Phencyclidine Scrn Ur Amphetamines Screen U Benzodiazepines Scrn Urine Cocaine Screen U Marijuana (THC) Screen Ethyl Alcohol Blood Type Rho(D) Type Antibody Screen Crossmatch 12/16/19 12/16/19 12/17/19 12:38 18:51 02:56 WBC RBC Hgb Hct MCV MCH MCHC RDW Plt Count MPV Neut % (Auto) Lymph % (Auto) [place] % (Auto) Eos % (Auto) Baso % (Auto) Neut # (Auto) Lymph # (Auto) [place] # (Auto) Eos # (Auto) Baso # (Auto) Nucleated RBC % (auto) Nucleated RBCs # PT INR APTT 51.0 H D-Dimer Specimen Type Sample Site ABG pH ABG pCO2 ABG pO2 ABG HCO3 ABG O2 Saturation ABG Base Excess [place] Test A-a O2 Gradient Hematocrit Hgb O2 Saturation Carboxyhemoglobin Methemoglobin Total Hemoglobin Ionized Calcium O2 Delivery Device O2 Liters/Min Ships Or Barges Loader ID Sodium Potassium Chloride Carbon Dioxide Anion Gap BUN Creatinine GFR Calculation Glucose POC Glucose Estimat Average Glucose 146 Hemoglobin A1c 6.7 H Calculated Osmolality Lactic Acid 0.9 Lactate Calcium Phosphorus Magnesium Iron TIBC % Saturation Unsat Iron Binding Ferritin Total Bilirubin AST ALT Alkaline Phosphatase Troponin T Baseline Troponin T 120 Minute Delta Troponin T Troponin T Hi Sens 6Hr Troponin T Hi Sens 6Hr Delta Total Protein Albumin Globulin Triglycerides Cholesterol LDL Cholesterol, Calc Total VLDL Cholesterol HDL Cholesterol Cholesterol/HDL Ratio Lipase Vitamin B12 Folate Procalcitonin TSH Free T4 Free T3 Random Cortisol Urine Color Urine Appearance Urine pH Ur Specific [place] Urine Protein Urine Glucose (UA) Urine Ketones Urine Blood Urine Nitrate Urine Bilirubin Urine Urobilinogen Ur Leukocyte Esterase Ur Random Sodium Ur Random Potassium Ur Random Chloride Salicylates Urine Opiates Screen Acetaminophen Ur Barbiturates Screen Ur Phencyclidine Scrn Ur Amphetamines Screen U Benzodiazepines Scrn Urine Cocaine Screen U Marijuana (THC) Screen Ethyl Alcohol Blood Type Rho(D) Type Antibody Screen Crossmatch 12/17/19 12/17/19 12/17/19 02:56 02:56 02:56 WBC RBC Hgb Hct MCV MCH MCHC RDW Plt Count MPV Neut % (Auto) Lymph % (Auto) [place] % (Auto) Eos % (Auto) Baso % (Auto) Neut # (Auto) Lymph # (Auto) [place] # (Auto) Eos # (Auto) Baso # (Auto) Nucleated RBC % (auto) Nucleated RBCs # PT INR APTT 83.7 H D D-Dimer Specimen Type Sample Site ABG pH ABG pCO2 ABG pO2 ABG HCO3 ABG O2 Saturation ABG Base Excess [place] Test A-a O2 Gradient Hematocrit Hgb O2 Saturation Carboxyhemoglobin Methemoglobin Total Hemoglobin Ionized Calcium O2 Delivery Device O2 Liters/Min Ships Or Barges Loader ID Sodium Potassium Chloride Carbon Dioxide Anion Gap BUN Creatinine GFR Calculation Glucose POC Glucose Estimat Average Glucose Hemoglobin A1c Calculated Osmolality Lactic Acid Lactate Calcium Phosphorus 3.1 Magnesium 1.8 Iron TIBC % Saturation Unsat Iron Binding Ferritin Total Bilirubin AST ALT Alkaline Phosphatase Troponin T Baseline Troponin T 120 Minute Delta Troponin T Troponin T Hi Sens 6Hr Troponin T Hi Sens 6Hr Delta Total Protein Albumin Globulin Triglycerides 82 Cholesterol 173 LDL Cholesterol, Calc 91 Total VLDL Cholesterol 16 HDL Cholesterol 66 Cholesterol/HDL Ratio 2.62 Lipase Vitamin B12 Folate Procalcitonin TSH Free T4 Free T3 Random Cortisol Urine Color Urine Appearance Urine pH Ur Specific [place] Urine Protein Urine Glucose (UA) Urine Ketones Urine Blood Urine Nitrate Urine Bilirubin Urine Urobilinogen Ur Leukocyte Esterase Ur Random Sodium Ur Random Potassium Ur Random Chloride Salicylates Urine Opiates Screen Acetaminophen Ur Barbiturates Screen Ur Phencyclidine Scrn Ur Amphetamines Screen U Benzodiazepines Scrn Urine Cocaine Screen U Marijuana (THC) Screen Ethyl Alcohol Blood Type Rho(D) Type Antibody Screen Crossmatch 12/17/19 09:01 WBC RBC Hgb Hct MCV MCH MCHC RDW Plt Count MPV Neut % (Auto) Lymph % (Auto) [place] % (Auto) Eos % (Auto) Baso % (Auto) Neut # (Auto) Lymph # (Auto) [place] # (Auto) Eos # (Auto) Baso # (Auto) Nucleated RBC % (auto) Nucleated RBCs # PT INR APTT 31.1 D D-Dimer Specimen Type Sample Site ABG pH ABG pCO2 ABG pO2 ABG HCO3 ABG O2 Saturation ABG Base Excess [place] Test A-a O2 Gradient Hematocrit Hgb O2 Saturation Carboxyhemoglobin Methemoglobin Total Hemoglobin Ionized Calcium O2 Delivery Device O2 Liters/Min Ships Or Barges Loader ID Sodium Potassium Chloride Carbon Dioxide Anion Gap BUN Creatinine GFR Calculation Glucose POC Glucose Estimat Average Glucose Hemoglobin A1c Calculated Osmolality Lactic Acid Lactate Calcium Phosphorus Magnesium Iron TIBC % Saturation Unsat Iron Binding Ferritin Total Bilirubin AST ALT Alkaline Phosphatase Troponin T Baseline Troponin T 120 Minute Delta Troponin T Troponin T Hi Sens 6Hr Troponin T Hi Sens 6Hr Delta Total Protein Albumin Globulin Triglycerides Cholesterol LDL Cholesterol, Calc Total VLDL Cholesterol HDL Cholesterol Cholesterol/HDL Ratio Lipase Vitamin B12 Folate Procalcitonin TSH Free T4 Free T3 Random Cortisol Urine Color Urine Appearance Urine pH Ur Specific [place] Urine Protein Urine Glucose (UA) Urine Ketones Urine Blood Urine Nitrate Urine Bilirubin Urine Urobilinogen Ur Leukocyte Esterase Ur Random Sodium Ur Random Potassium Ur Random Chloride Salicylates Urine Opiates Screen Acetaminophen Ur Barbiturates Screen Ur Phencyclidine Scrn Ur Amphetamines Screen U Benzodiazepines Scrn Urine Cocaine Screen U Marijuana (THC) Screen Ethyl Alcohol Blood Type Rho(D) Type Antibody Screen Crossmatch Micro: Microbiology 12/15/19 23:22 Blood Culture - Preliminary Blood NEGATIVE TO DATE 12/15/19 21:28 Blood Culture - Preliminary Blood NEGATIVE TO DATE Cardiac Studies: No Data to Display
--- NOTE | 2019-12-17 14:25 | ANES.PROC ---
Anesthesia Procedures Procedure/Date: 12/17/19 Nerve Block ^: Nerve Block 1: Main Anesthesia: general anesthesia Time Out Performed: Yes Consent: requested by attending/covering physician Nerve block location: interscalene (R) Anesthesia monitors applied: pulse oximetry and BP cuff Anesthetic Used: ropivicaine 0.5% and with decadron (4 mg) Amount of anesthesia used (mL): 20 Ultrasound used to: recognize landmarks Interscalene/Femoral BLK: 2 stimuplex 22 g needle used for position and inplane approach, visualize local anesthetic spread and no vascular puncture identified Injection: neg aspiration of heme Patient Tolerated Procedure: well Complications: none
--- NOTE | 2019-12-17 14:34 | W.PM.OPSUD ---
Surgery/Procedure H&P Update DATE OF PROCEDURE: December 17, 2019 DATE H&P PERFORMED: 12/15/19 PREOP DIAGNOSIS: Right humerus fracture PLANNED PROCEDURE: Operation Date: 12/17/19 16:00 Proposed Procedures p ORIF Distal Humerus(Right) - Shamar So MD
[2019-12-17 16:24] LABS: Basophils % 0.3 %; Hematocrit 47.3 % (37.0-47.0); Hemoglobin 15.9 g/dL (11.5-15.3); Lymphocytes # 1.2 10^3/uL (0.8-4.8); Lymphocytes % 17.3 %; Mean Corpuscular HGB Conc 33.6 g/dL (30.0-36.0); Mean Corpuscular Hemoglobin 33.5 pg (28.0-34.0); Mean Corpuscular Volume 99.8 fL (81-99); Monocytes # 0.6 10^3/uL (0.2-0.9); Monocytes % 8.7 %; Neutrophils # 4.92 10^3/uL (1.8-7.7); Neutrophils % 73.6 %; Nucleated Red Blood Cells % 0 %; Platelet Count 170 10^3/cmm (130-400); Red Blood Count 4.74 10^6/uL (4.1-5.3); Red Cell Distribution Width 13.2 % (12.1-15.1); White Blood Count 6.7 10^3/uL (4.0-10.0)
--- NOTE | 2019-12-17 17:47 | P.OP_ITS ---
Operative Report Date of procedure: December 17, 2019 Pre-op Diagnosis: Right humerus fracture, segmental involving surgical neck and distal diaphysis Post-op diagnosis: same Post-op Findings: Same Procedure Done: Open reduction and internal fixation right proximal humerus, open reduction internal fixation right distal diaphysis Implants: Judy Variax 4-hole right proximal humeral plate, Judy bariatrics 14 hole 3.5 mm locking plate Pathology: none sent Surgeon: Shamar So Anesthesia: General and Nerve Block (Axillary nerve block) Estimated blood loss (mL): 100 Complications: None Findings: The patient had a displaced oblique fracture of her right humeral surgical neck and a spiral distal diaphyseal fracture Condition: stable Disposition: PACU Procedure: The patient was taken to the operating room after she was given an interscalene block by anesthesia. General endotracheal anesthesia was provided. She was positioned in the beachchair position and given 2 g of Ancef. A timeout was performed. Initially a 10 cm long deltopectoral incision was made beginning over the coracoid extending distally and laterally. The deltopectoral interval was identified and the cephalic vein moved laterally with the deltoid. This brought us down to the fracture. A Hohmann elevator could be placed behind the humeral head rotating it anteriorly. Longitudinal traction the fracture was brought out to length and held reduced provisionally with a clamp and to K wires. Proximal humeral plate was then positioned just posterior to the greater tuberosity. Single noncompression superior screw was placed compressing the plate to the humeral head and a distal bicortical nonlocking screw placed in the shaft. Additional locking screws were placed into the humeral head in a combination of locking and nonlocking screws into the shaft. Intraoperative fluoroscopy showed satisfactory position of the hardware. A second anterior lateral incision was made beginning at the elbow extending proximally over a distance of approximately 15 cm. The lateral fascia was identified and the biceps retracted medially. The brachialis muscle was divided midline bringing this down to the humeral fracture. Utilizing a reduction clamp the fracture reduced and held with a single 3.5 mm cancellous compression screw. The 14 hole plate was then placed with a 5 cortices the distal to the fracture extending just past the tip of the lateral humeral plate. Nonlocking screws were placed at both ends and securing the plate. additional locking andnonlocking screws were placed distally and proximally securing the plate to the humerus. Intraoperative fluoroscopy images showed satisfactory alignment of the diaphyseal fracture. Wounds were irrigated with saline. The deltopectoral interval was closed with 0 Vicryl suture. The split in the brachialis was cl osed with 0 Vicryl in the deltoid secured laterally to the lateral intermuscular septum with 0 Vicryl suture. Subcutaneous tissues were closed with 2-0 Vicryl suture. The skin was closed with skin isaac. Sterile dressings were applied. The patient was placed in a sling, extubated, and taken to recovery room in stable condition.
[2019-12-17 17:58] LABS: Alanine Aminotransferase 10 U/L (0-33); Albumin Level 3.3 g/dL (3.5-5.2); Alkaline Phosphatase 77 IU/L (35-105); Anion Gap 11.9 (5-19); Aspartate Amino Transferase 22 U/L (0-32); Blood Urea Nitrogen 4 mg/dL (8-23); Calcium 8.5 mg/dL (8.5-10.5); Carbon Dioxide 22 mmol/L (22-29); Chloride 97 mmol/L (98-107); Globulin 2.8 g/dL (1.3-4.6); Glomerular Filtration Rate 123.4 mL/min (90-130); Glucose 100 mg/dL (65-115); Osmolality Calculated 260 mOsm/kg (285-295); Potassium 3.9 mmol/L (3.5-5.1); Sodium 127 mmol/L (136-145); Total Bilirubin 0.5 mg/dL (0.15-1.2); Total Protein 6.1 g/dL (6.6-8.7)
[2019-12-17 18:44] LABS: Glucose Point of Care 109 mg/dL (70-110)
--- NOTE | 2019-12-17 19:42 | PC.NURSE ---
Event Report Patient is refusing all care, needing a PTT ronda and refuses to allow draw to be completed, patient does not want heparin drip, patient is Alertx3, person, place, date, time, situation, wanting to leave AMA, discussed with patient regarding risks of leaving AMA, stroke and poss. . son and physician notified, son is not okay with patient leaving, DR. Jansen gave okay for patient son to come to floor to try and reason with patient to get her to stay. Patient also is stating 86% on RA, patient refuses to wear oxygen. Patient has took all medical equipment off.
--- NOTE | 2019-12-17 20:13 | PC.NURSE ---
Patient son came to floor to talk to patient, patient kicked son out of room does not want to reason with him,wanting son to take her home NOW, does not care about the blood clot, does not want her blood drawn, patient states she will stay the night if she can just be left alone and allowed to sleep without interruptions. Call placed to Dr. Jansen, per DR is it okay for patient to have vitals done x1 tonight, will cancel PTT, start eliquis now, and will re address with Day shift doctor tomorrow morning. Placed patient on tele and will access patient nonvascular stats when patient puts food and nutrition services supervisor light throughout night/during rounds. Mikael Underwood Home phone [phone] Cell [phone]. Patient vital signs stable at this time. Patient Alert, Normal Sinus Rhythm 80's, patient with block to right arm, able to move first digit finger, denies pain, zero swelling to hand, patient bulky dressing intact with tegaderm placed, mild blessing noted to dressing, patient refuses ice. Patient took crackers and a soda, and took eliquis and hydro 5mg-325 w/o difficulty.
[2019-12-17] MEDS: HYDROcodone-acetaminophen 5-325 mg Tablet PO (20:30)
[2019-12-17] MEDS: apixaban 5 mg Tablet PO (20:31)
[2019-12-18] VITALS (9 sets, daily range): BP systolic 110–127; BP diastolic 69–79; PULSE 74–83; RESP 16–18; TEMP 36.8–36.9; O2SAT 90–98
[2019-12-18] MEDS: oxyCODONE-APAP 5-325 mg Tablet 1 TAB PO ×3 (05:05→13:06)
[2019-12-18] MEDS: ipratropium-albuterol 3 mL Neb INHALATION (08:01)
[2019-12-18] MEDS: apixaban 5 mg Tablet PO (08:29)
[2019-12-18] MEDS: thiamine 100 mg Tablet PO (08:29)
[2019-12-18] MEDS: folic acid 1 mg Tablet PO (08:29)
[2019-12-18] MEDS: pantoprazole 40 mg SDV IVP (08:29)
[2019-12-18] MEDS: multivitamin therapeutic Tablet 1 TAB PO (08:29)
[2019-12-18] MEDS: ceFAZolin 1,000 MG in sodium chloride 0.9% (plus) 50 ML 100 MG IV (10:07)
--- NOTE | 2019-12-18 11:04 | PC.SOCIAL ---
IMM Update Pg 2 of IMM updated and copy provided to patient.
--- NOTE | 2019-12-18 11:21 | PC.CHAP ---
Pastoral Care Encounter/Spiritual Assessment Type of Contact [x] Declined manager marketing communications visit [] Patient/Family/Request visit [] Outpatient visit [] Follow-up visit [] Physician referral [] Code/Alert [] Routine visit [] Staff referral [] Actively dying [] Patient sleeping [] Family support [] [] Out of room [] Palliative care [] [] Receiving care in room [] Pre-surgical visit [] Trauma [] Long length of stay [] ICU visit [] Other: Relational/Emotional Strength [] Patient feels connected with others/family/visitors/staff [] Distress [] Loneliness/isolation [] Abandonment Spirituality of Patient [] Person of Padmaja [] Attends Hoahaoism of their Padmaja [] Believes in Prayer [] Reads Bible or Pentecostal materials [] There are Spiritual issues to be addressed Paralegal Assistant Interventions [x] Prayer [x] Active listening [x] Non-anxious presence [] Spiritual/emotional support [] Crisis/trauma care [] Spiritual counseling [] Bereavement support [] Provided bereavement packet [] Provided Bible/devotional materials [] Provided toy/stuffed animal, coloring book to patient or family member [] Provided Communion [] Anointing/[place] [] Salvation [] Completed spiritual assessment [] Other: Impact on Illness or Injury [] Angry [] Fearful [] Anxious [] Often cries [] Exhaustion [] Unable to work [] Unable to attend hinduism [] Unable to walk/stand [] Unable to read [] Unable to drive [] Unable to eat/drink [] Unable to sleep [] Unable to be with family [] Patient intubated [x] Other: Summary Patient declined visit but allowed prayer to be provided. Time spent with patient 5 minutes
--- NOTE | 2019-12-18 14:34 | P.DS_ITS ---
Discharge Providers Date of Admission: 12/15/19 23:37 Date of Discharge: December 18, 2019 Attending Provider at Admission: Migue Jansen MD Attending Provider at Discharge: Wale Aragon MD Consults: Orthopedics: Dr. So Diagnoses at Discharge Discharge Diagnosis (1) Alcohol intoxication: Status: Acute Qualifiers: Complication of substance-induced condition: with unspecified complication Qualified Code(s): F10.929 - Alcohol use, unspecified with intoxication, unspecified (2) Fracture of humerus: Status: Acute Qualifiers: Encounter type: initial encounter Fracture alignment: displaced Fracture morphology: oblique Fracture type: closed Humerus Location: shaft Laterality: right Qualified Code(s): S42.331A - Displaced oblique fracture of shaft of humerus, right arm, initial encounter for closed fracture (3) Pulmonary embolism: Status: Acute (4) Hypocalcemia: Status: Acute (5) Hypomagnesemia: Status: Acute (6) Acute hypokalemia: Status: Acute (7) Hypoalbuminemia: Status: Acute (8) Hypothermia: Status: Acute Qualifiers: Encounter type: initial encounter Qualified Code(s): T68.XXXA - Hypothermia, initial encounter (9) Anemia: Status: Acute (10) Acute hypotension: Status: Acute Reason for Visit Reason for Visit: FALL / POSS FX R HUMERUS Hospital Course Discharge Summary: Anne Marie Underwood is a 64 year old female that presents after a fall with right upper extremity pain. She states she fell because she tripped. She denies any dizziness, headache, or other injuries other than her right arm. She reports she had several drinks in the last 24 hours but previously had cut back. She states she has been taking her anticoagulant for pulmonary embolism. Denies any blood in her stool, black or tarry stools, or shortness of breath. She does not have any chest discomfort. She was hospitalized March 2019 with a pulmonary embolism her hospital stay no significant anti-inflammatory use. She was admitted to the hospital and was found to have a right humerus fracture. CTA chest was done which showed old thromboembolism. Orthopedics was consulted and she underwent she underwent ORIF on December 2019. [facility]-surgery she was treated with therapeutic heparin drip because of persistent pulmonary embolism. Her hospital stay remained unremarkable and she is been discharged in hemodynamically stable condition with advised to follow-up with Dr. So within next 7 to 10 days. During hospitalization patient did not have any signs of alcohol withdrawal. Home oxygen evaluation was done prior to discharge. Physical Exam Narrative: EXAM NARRATIVE: General exam demonstrates a white female complaining of some right arm pain. HEENT: Pupils equally round. Oropharynx clear. Neck is supple no lymphadenopathy or thyromegaly Cardiovascular regular rate and rhythm without murmur, no S3 or S4 Lungs clear but with diminished breath sounds bilaterally. No wheezes Abdomen is soft with positive bowel sounds. No obvious organomegaly was deferred Extremities no cyanosis clubbing or edema. Right upper extremity in sling. Has good motor function of the hand. Distal radial pulse intact. Skin no rash Neuro no focal deficits Discharge Data Data Completed and Pending: Completed Studies During Hospitalization Category Date Time Status CT angio chest PE protcl 32022 Urge nt Cat Scan 12/15/19 22:[address] head wo con* 7 0450 Stat Cat Scan 12/15/19 21:38 Completed XR chest 1V emmie ble 93088 Routine Exams 12/17/19 12:19 Completed XR chest 1V emmie ble 15032 Stat Exams 12/15/19 22:05 Completed XR humerus RT 730 60 Routine Exams 12/17/19 Completed XR humerus RT 730 60 Stat Exams 12/15/19 21:10 Completed Pending at discharge Category Date Time Status Blood Culture Sta t Lab 12/15/19 23:22 Results Complete Blood Co unt w/Auto AM LABS Lab 12/18/19 04:00 Ordered Comprehensive Met abolic Panel AM LA BS Lab 12/18/19 04:00 Ordered Immunochemical Fe avinash OCB Routine Lab 12/15/19 23:41 Uncollected Leukocyte Reduced RBC Routine Lab 12/15/19 22:18 Results Platelet Count Q2 D Lab 12/20/19 04:00 Ordered Type and Screen S tat Lab 12/15/19 22:18 Results Labs from last 24 hours 12/17/19 12/17/19 12/17/19 18:40 02:56 02:56 WBC 6.7 RBC 4.74 Hgb 15.9 H Hct 47.3 H MCV 99.8 H MCH 33.5 MCHC 33.6 RDW 13.2 Plt Count 170 MPV 12.0 H Neut % (Auto) 73.6 Lymph % (Auto) 17.3 [place] % (Auto) 8.7 Eos % (Auto) 0.0 Baso % (Auto) 0.3 Neut # (Auto) 4.92 Lymph # (Auto) 1.2 [place] # (Auto) 0.6 Eos # (Auto) 0.0 Baso # (Auto) 0.0 Nucleated RBC % (a uto) 0 Nucleated RBCs # 0.0 Sodium 127 L Potassium 3.9 Chloride 97 L Carbon Dioxide 22 Anion Gap 11.9 BUN 4 L Creatinine 0.5 GFR Calculation 123.4 Glucose 100 POC Glucose 109 Calculated Osmolal ity 260 L Calcium 8.5 Total Bilirubin 0.5 AST 22 ALT 10 Alkaline Phosphata se 77 Total Protein 6.1 L Albumin 3.3 L Globulin 2.8 Vitals: Last Vital Signs Temp 98.4 F 12/18/19 11:10 Pulse 83 12/18/19 11:10 Resp 18 12/18/19 13:06 BP 127/79 12/18/19 11:10 Pulse Ox 94 12/18/19 11:10 Discharge Plan Discharge Patient Disposition: Home Condition: Stable Prescriptions: New oxycodone 5 mg tablet 5 mg PO Q4H PRN (Reason: pain) Qty: 40 RF: 0 Atrovent HFA 17 mcg/actuation HFA aerosol inhaler 2 inh INHALATION Q8H PRN (Reason: shortness of breath or wheezing) Qty: 12.9 RF: 0 Continued Advair Diskus 250-50 mcg/dose Blister With Device 2 inh INHALATION PRN PRN (Reason: shortness of breath) RF: 0 Eliquis 5 mg Tablet 5 mg PO BID RF: 0 Discharge Orders: Discharge Order (Routine); Ordered 12/18/19 Ordered By: Wale Aragon Other Ambulatory Orders: DME: Cane/ Crutches (Order) Location: None Selected Ordered By: Wale Aragon Occupational Therapy Eval and Treat Outpatient (Order) Timeframe: 1 Week Facility: [facility] - Location: Occupational Therapy Ordered By: Shamar So Referrals: Shamar So MD [Physician] - 12/31/19 10:45 am Discharge Diet: Advance as tolerated Discharge Activity: Limit activity as instructed Activity Restrictions/Additional Instructions: Exercises as instructed with occupational therapy May remove dressing 48 hours after discharge and shower once incision free of drainage. Replace with light dressing. Shower once incision free of drainage. Please follow-up with the providers on the set appointment. Please try to avoid alcohol consumption. Discharge Attestations Time Spent in Discharge Care*: greater than 30 min Specific Discharge Activities: Specific discharge activities: educating patient, discussing with pcp/other providers, discussing with cyanide case hardener/social workers/dc planners, documenting/other paperwork and evaluating patient/reviewing data Status at Discharge: Cognitive status at discharge: cognitively intact , Behavioral status at discharge: cooperative , Functional status at discharge: independent ambulation Overall status at discharge: patient is back to [facility] Clinical Quality Measures During this hospital stay, did patient experience: None Coding Level of Care Code Acute Manugrapher for Chg Fwd Diagnoses Alcohol intoxication F10.929 Complication of substance-induced condition: with unspecified complication Fracture of humerus S42.331A Encounter type: initial encounter Fracture alignment: displaced Fracture morphology: oblique Fracture type: closed Humerus Location: shaft Laterality: right Pulmonary embolism I26.99 Hypocalcemia E83.51 Hypomagnesemia E83.42 Acute hypokalemia E87.6 Hypoalbuminemia E88.09 Hypothermia T68.XXXA Encounter type: initial encounter Anemia D64.9 Acute hypotension I95.9
--- NOTE | 2019-12-18 14:48 | PC.OT ---
Patient refused second occupational therapy visit.
== END 2019-12-18 15:59 | disposition home or self-care (01) | DRG 493 ==
LOC: ER 23:25 → ICU 23:54 → MEDSURG 12-16 14:43
PROVIDERS: Emergency Medicine; Orthopaedic Surgery; Admitting Provider Internal Medicine; Visit Provider Student in an Organized Health Care Education/Training Program
PROC: 0PSF04Z Reposition Right Humeral Shaft with Internal Fixation Device, Open Approach (ICD-10-PCS; principal; 2019-12-17 16:00)
DX: S42.331A Displaced oblique fracture of shaft of humerus, right arm, initial encounter for closed fracture (principal); E87.2 Acidosis; I27.82 Chronic pulmonary embolism; I95.9 Hypotension, unspecified; T68.XXXA Hypothermia, initial encounter; E88.09 Other disorders of plasma-protein metabolism, not elsewhere classified; E87.6 Hypokalemia; E83.42 Hypomagnesemia; E83.51 Hypocalcemia; F10.929 Alcohol use, unspecified with intoxication, unspecified; D64.9 Anemia, unspecified; W01.0XXA Fall on same level from slipping, tripping and stumbling without subsequent striking against object, initial encounter; Y92.009 Unspecified place in unspecified non-institutional (private) residence as the place of occurrence of the external cause; Z86.711 Personal history of pulmonary embolism; Z79.01 Long term (current) use of anticoagulants; J44.9 Chronic obstructive pulmonary disease, unspecified; F32.9 Major depressive disorder, single episode, unspecified; F17.210 Nicotine dependence, cigarettes, uncomplicated; E02 Subclinical iodine-deficiency hypothyroidism; Y90.6 Blood alcohol level of 120-199 mg/100 ml
CPT/HCPCS: 12345; 36415; 36416; 36430; 51702; 70450; 71045; 71275; 73060; 76000; 80051; 80053; 80061; 80306; 80307; 81003; 82436; 82533; 82607; 82728; 82746; 82803; 82810; 82962; 83036; 83540; 83550; 83605; 83690; 83735; 83986; 84100; 84133; 84145; 84300; 84439; 84443; 84481; 84484; 85014; 85018; 85025; 85049; 85378; 85610; 85730; 86850; 86900; 86920; 87040; 93005; 94640; 96372; 96375; 97116; 97161; 97166; 99283; C1713; C9113; J0610; J0690; J1100; J1580; J1644; J2250; J2370; J2405; J2704; J2710; J2795; J3010; J3411; J3420; J3475; J3480; J3490; J7030; P9016; Q9967

== ENCOUNTER → 2020-01-05 10:14 | Outpatient (BNVA) | payer MEDICARE, SELFPAY | PROVIDERS: Visit Provider Orthopaedic Surgery | DX: Z47.89 Encounter for other orthopedic aftercare (principal); S42.331D Displaced oblique fracture of shaft of humerus, right arm, subsequent encounter for fracture with routine healing; W01.0XXD Fall on same level from slipping, tripping and stumbling without subsequent striking against object, subsequent encounter; G56.31 Lesion of radial nerve, right upper limb | CPT/HCPCS: 73030 ==

== ENCOUNTER 2020-11-19 19:43 | Emergency (ER) | payer MEDICARE, MEDICAID, SELFPAY ==
--- NOTE | 2020-11-19 19:47 | XRR_ITS ---
PROCEDURE INFORMATION: Exam: XR Chest Exam date and time: 11/19/2020 7:47 PM Age: 65 years old Clinical indication: Chest wall pain; Additional info: Cp TECHNIQUE: Imaging protocol: XR of the chest. Views: 1 view. COMPARISON: CR XR chest 1V portable [id number] 12/17/2019 1:01 PM FINDINGS: Lungs: Lungs are moderately hyperinflated. Lungs are clear bilaterally. Pleural spaces: No pleural effusion. No pneumothorax. Heart/Mediastinum: The cardiac silhouette and mediastinal contours are unremarkable. Vasculature: Atherosclerotic changes in the visualized arteries. Bones/joints: Interval repair of a right humeral fracture. Bones are diffusely osteopenic. XR/XR chest 1V portable [id number] IMPRESSION: 1. No acute cardiopulmonary process. 2. Incidental/nonacute findings are listed in the report.
--- NOTE | 2020-11-19 19:48 | ECG_ITS ---
[facility] Test Date: 2020-11-19 Pat Name: Anne Marie Underwood Department: Room: Gender: Female Lining Layer: : 1955 Requested By: Destinee Mckeon Order Number: [id number] Jovan MD: Peter Maldonado M.D. Measurements Intervals [place] Rate: 88 P: 82 CA: 156 QRS: 66 QRSD: 134 T: 104 QT: 396 QTc: 481 Interpretive Statements SINUS RHYTHM LEFT BUNDLE BRANCH BLOCK [120+ ms QRS DURATION, 80+ ms Q/S IN V1/V2, 85+ ms R IN I/aVL/V5/V6] Compared to ECG 12/16/2019 03:15:46 No significant changes Electronically Signed On 11-21-2020 17:16:10 CDT by Peter Maldonado M.D. [email or web address]
[2020-11-19 19:51] VITALS: BP 91/65; PULSE 90; RESP 19; TEMP 36.8; O2SAT 94; BMI 13.9
--- NOTE | 2020-11-19 19:55 | W.ED.SOB ---
HPI - SOB/Dyspnea General: Chief Complaint: Shortness of Breath/Dyspnea Stated Complaint: chest pain / difficulty breathing Time Seen by Provider: 11/19/20 19:50 Source: patient and EMS Mode of arrival: EMS Limitations: no limitations History of Present Illness: HPI Narrative: 65-year-old female states that she is a longtime smoker has a history of bronchitis and is on albuterol home states started having wheezing shortness of breath, chest pain roughly 2 3 hours ago. EMS gave her breathing treatment in route she states she feels completely fine has no symptoms currently. Does have a history of a pulmonary bleed in the past as well is on Eliquis. Denies any fevers. Denies any cough. Associated symptoms: Reports chest pain; Deny abdominal pain, fever(s), nausea or vomiting Review of Systems Const: Denies: fever(s), chills, body aches or change in appetite Eyes: Denies: blurry vision or eye discomfort ENMT: Denies: throat pain or dental pain Card: Reports: chest pain Resp: Reports: dyspnea and wheezing GI: Denies: abdominal pain, nausea, vomiting or diarrhea : Denies: dysuria Musc: Denies: neck pain or back pain Skin/Breast: Denies: rash Neuro: Denies: headache(s) Psych: Denies: depression Teja/Lymph: Denies: easy bruising All/Imm: Denies: urticaria PFSH ED PFSH: Medical History (Updated 11/19/20 @ 22:41 by Destinee Mckeon MD) Alcohol abuse COPD (chronic obstructive pulmonary disease) Depression Low back pain Occlusion of superior mesenteric artery Pulmonary embolism Surgical History History of appendectomy History of tonsillectomy History of tubal ligation Social History Smoking and tobacco status: current every day smoker Alcohol intake: current Physical Exam Const: COMMON NORMALS: no acute distress, patient oriented x3 and healthy appearing HENMT: COMMON NORMALS: normocephalic and atraumatic HEAD & SCALP: normocephalic and atraumatic Eye: COMMON NORMALS: Equal, round and reactive pupils present and EOMs intact bilaterally PUPIL: Yes Equal, round and reactive pupils present Neck/C-Spine: COMMON NORMALS: full ROM and supple Chest: COMMONS NORMALS: normal inspection of the chest and normal palpation of entire chest wall Resp: COMMON NORMALS: normal respiratory effort, No retractions, No use of accessory muscles and clear to auscultation bilaterally AUSCULTATION: clear to auscultation bilaterally Cardio: COMMON NORMALS: regular rate, regular rhythm and No murmurs present (Cardio) RATE: regular rate RHYTHM: regular rhythm GI: COMMON NORMALS: Normal to inspection, nondistended, normoactive bowel sounds present, Soft to palpation, non-tender and no masses PALPATION: Yes Soft to palpation Extremity: COMMON NORMALS: normal to inspection and full ROM Neuro: COMMON NORMALS: patient oriented x3, moves all extremities and no focal motor deficits Psych: COMMON NORMALS: mental status grossly normal, Normal thought process present and cooperative THOUGHT PROCESS: Normal thought process present Skin: COMMON NORMALS: no rashes or lesions noted and no wounds GENERAL SKIN EXAM: no rashes or lesions noted Course Vital Signs: Vital signs: Vital Signs Temperature 98.2 F 11/19/20 19:51 Pulse Rate 98 11/19/20 22:51 Respiratory Rate 16 11/19/20 22:51 Blood Pressure 110/77 11/19/20 22:51 Pulse Oximetry 96 11/19/20 22:51 MDM - SOB/Dyspnea MDM Narrative: Medical decision making narrative: Patient presents here with dyspnea likely a bronchitis or COPD. He is much improved here after breathing treatments. She has had no chest pain here no sign of acute coronary syndrome or pulmonary embolism. Patient stable for discharge will place on prednisone. She is to follow-up PCP and return if worsening. Lab Data: Labs: Lab Results 11/19/20 11/19/20 11/19/20 Range/Units 19:50 19:50 19:50 WBC 8.1 (4.0-10.0) 10^3/ uL RBC 4.76 (4.1-5.3) 10^6/u L Hgb 16.1 H (11.5-15.3) g/dL Hct 47.0 (37.0-47.0) % MCV 98.7 (81-99) fL MCH 33.8 (28.0-34.0) pg MCHC 34.3 (30.0-36.0) g/dL RDW 13.8 (12.1-15.1) % Plt Count 200 (130-400) 10^3/c mm MPV 10.1 (7.4-10.4) fL Neut % (Auto) 41.2 % Lymph % (Auto) 47.0 % [place] % (Auto) 10.6 % Eos % (Auto) 0.5 % Baso % (Auto) 0.5 % Neut # (Auto) 3.35 (1.8-7.7) 10^3/u L Lymph # (Auto) 3.8 (0.8-4.8) 10^3/u L [place] # (Auto) 0.9 (0.2-0.9) 10^3/u L Eos # (Auto) 0.0 (0.0-0.8) 10^3/u L Baso # (Auto) 0.0 (0.0-0.1) 10^3/u L Nucleated RBC % (a uto) 0 % Nucleated RBCs # 0.0 /100WBC Sodium 126 L (136-145) mmol/L Potassium 4.0 (3.5-5.1) mmol/L Chloride 92 L (98-107) mmol/L Carbon Dioxide 22 (22-29) mmol/L Anion Gap 16.0 (5-19) BUN 4 L (8-23) mg/dL Creatinine 0.4 L (0.5-0.9) mg/dL GFR Calculation 159.2 H (90-130) mL/min Glucose 107 (65-115) mg/dL Calculated Osmolal ity 259 L (285-295) mOsm/k g Calcium 8.5 (8.5-10.5) mg/dL Total Bilirubin 0.3 (0.15-1.2) mg/dL AST 18 (0-32) U/L ALT 8 (0-33) U/L Alkaline Phosphata se 107 H (35-105) IU/L Troponin T Baselin e 16 H (0-10) ng/L Troponin T 120 Min jose martin (0-10) ng/L Delta Troponin T (0-10) ABS# Total Protein 5.8 L (6.6-8.7) g/dL Albumin 3.7 (3.5-5.2) g/dL Globulin 2.1 (1.3-4.6) g/dL 11/19/20 Range/Units 22:00 WBC (4.0-10.0) 10^3/ uL RBC (4.1-5.3) 10^6/u L Hgb (11.5-15.3) g/dL Hct (37.0-47.0) % MCV (81-99) fL MCH (28.0-34.0) pg MCHC (30.0-36.0) g/dL RDW (12.1-15.1) % Plt Count (130-400) 10^3/c mm MPV (7.4-10.4) fL Neut % (Auto) % Lymph % (Auto) % [place] % (Auto) % Eos % (Auto) % Baso % (Auto) % Neut # (Auto) (1.8-7.7) 10^3/u L Lymph # (Auto) (0.8-4.8) 10^3/u L [place] # (Auto) (0.2-0.9) 10^3/u L Eos # (Auto) (0.0-0.8) 10^3/u L Baso # (Auto) (0.0-0.1) 10^3/u L Nucleated RBC % (a uto) % Nucleated RBCs # /100WBC Sodium (136-145) mmol/L Potassium (3.5-5.1) mmol/L Chloride (98-107) mmol/L Carbon Dioxide (22-29) mmol/L Anion Gap (5-19) BUN (8-23) mg/dL Creatinine (0.5-0.9) mg/dL GFR Calculation (90-130) mL/min Glucose (65-115) mg/dL Calculated Osmolal ity (285-295) mOsm/k g Calcium (8.5-10.5) mg/dL Total Bilirubin (0.15-1.2) mg/dL AST (0-32) U/L ALT (0-33) U/L Alkaline Phosphata se (35-105) IU/L Troponin T Baselin e (0-10) ng/L Troponin T 120 Min jose martin 12.01 H (0-10) ng/L Delta Troponin T -3.99 L (0-10) ABS# Total Protein (6.6-8.7) g/dL Albumin (3.5-5.2) g/dL Globulin (1.3-4.6) g/dL Imaging Data^: CXR: Attestation: I personally reviewed and interpreted this imaging study as follows: Radiologist's impression: [address] [address] XRay Report Signed Patient: Anne Marie Underwood Unit #: [id number] : 1955 Age/Sex: 65 / F ADM Date: 11/19/20 Loc: ER Room/Bed: Attending Dr: Ordering Provider/Ordering MD: Destinee Mckeon MD Date of Service: 11/19/20 Procedure(s): XR chest 1V portable [id number] Accession Number(s): [id number] Report Number: [id number] PROCEDURE INFORMATION: Exam: XR Chest Exam date and time: 11/19/2020 7:47 PM Age: 65 years old Clinical indication: Chest wall pain; Additional info: Cp TECHNIQUE: Imaging protocol: XR of the chest. Views: 1 view. COMPARISON: CR XR chest 1V portable [id number] 12/17/2019 1:01 PM FINDINGS: Lungs: Lungs are moderately hyperinflated. Lungs are clear bilaterally. Pleural spaces: No pleural effusion. No pneumothorax. Heart/Mediastinum: The cardiac silhouette and mediastinal contours are unremarkable. Vasculature: Atherosclerotic changes in the visualized arteries. Bones/joints: Interval repair of a right humeral fracture. Bones are diffusely osteopenic. XR/XR chest 1V portable [id number] IMPRESSION: 1. No acute cardiopulmonary process. 2. Incidental/nonacute findings are listed in the report. EKG Data^: EKG 1: Attestation: I personally reviewed and interpreted this EKG as follows: EKG Interpretation Date: 11/19/20 EKG interpretation time: 19:58 Interpretation: nsr hr [address] or t wave abnormalities LBBB unchanged rom previous qrs 134 qtc 442 Discharge Plan Discharge Patient Disposition: Home Clinical Impression: Bronchitis, Hyponatremia Condition: Stable Prescriptions: New prednisone 50 mg tablet 50 mg PO DAILY Qty: 5 RF: 0 Discharge Orders: Discharge ED (Routine); Ordered 11/19/20 Ordered By: Destinee Mckeon Discharge Diet: Advance as tolerated Discharge Activity: Resume usual activity Patient Instructions: Bronchitis (Acute) - Adult, Hyponatremia (ED) Coding Level of Care Code ED Business Operations Director for Rashad Fwd Exam Comprehensive
[2020-11-19 20:09] LABS: Basophils % 0.5 %; Eosinophils % 0.5 %; Hemoglobin 16.1 g/dL (11.5-15.3); Lymphocytes # 3.8 10^3/uL (0.8-4.8); Mean Corpuscular HGB Conc 34.3 g/dL (30.0-36.0); Mean Corpuscular Hemoglobin 33.8 pg (28.0-34.0); Mean Corpuscular Volume 98.7 fL (81-99); Mean Platelet Volume 10.1 fL (7.4-10.4); Monocytes # 0.9 10^3/uL (0.2-0.9); Monocytes % 10.6 %; Neutrophils # 3.35 10^3/uL (1.8-7.7); Neutrophils % 41.2 %; Nucleated Red Blood Cells % 0 %; Platelet Count 200 10^3/cmm (130-400); Red Blood Count 4.76 10^6/uL (4.1-5.3); Red Cell Distribution Width 13.8 % (12.1-15.1); White Blood Count 8.1 10^3/uL (4.0-10.0)
[2020-11-19 20:24] LABS: Troponin(5th) Baseline 16 ng/L (0-10)
[2020-11-19 20:25] LABS: Alanine Aminotransferase 8 U/L (0-33); Albumin Level 3.7 g/dL (3.5-5.2); Alkaline Phosphatase 107 IU/L (35-105); Aspartate Amino Transferase 18 U/L (0-32); Blood Urea Nitrogen 4 mg/dL (8-23); Calcium 8.5 mg/dL (8.5-10.5); Carbon Dioxide 22 mmol/L (22-29); Chloride 92 mmol/L (98-107); Globulin 2.1 g/dL (1.3-4.6); Glomerular Filtration Rate 159.2 mL/min (90-130); Glucose 107 mg/dL (65-115); Osmolality Calculated 259 mOsm/kg (285-295); Sodium 126 mmol/L (136-145); Total Bilirubin 0.3 mg/dL (0.15-1.2); Total Protein 5.8 g/dL (6.6-8.7)
[2020-11-19] MEDS: sodium chloride 0.9% 1,000 ML 999 ML IV (20:45)
[2020-11-19 21:10] VITALS: BP 111/78; PULSE 86; RESP 18; O2SAT 98
[2020-11-19 22:32] LABS: Troponin 5 2HR 12.01 ng/L (0-10)
[2020-11-19 22:38] LABS: Troponin 5 2HR Delta -3.99 ABS# (0-10)
[2020-11-19 22:51] VITALS: BP 110/77; PULSE 98; RESP 16; O2SAT 96
== END 2020-11-19 22:54 | disposition home or self-care (01) ==
PROVIDERS: Emergency Provider Emergency Medicine
DX: J40 Bronchitis, not specified as acute or chronic (principal); E87.1 Hypo-osmolality and hyponatremia; J44.9 Chronic obstructive pulmonary disease, unspecified; Z86.711 Personal history of pulmonary embolism; F17.210 Nicotine dependence, cigarettes, uncomplicated
CPT/HCPCS: 71045; 80053; 84484; 85025; 85610; 93005; 96361; 96374; 99284; J2930; J7030

== ENCOUNTER → 2022-06-16 11:42 | Outpatient (BNVA) | payer MEDICARE, SELFPAY | PROVIDERS: PCP Family Medicine Adult Medicine; Visit Provider Family Medicine Adult Medicine | DX: N39.0 Urinary tract infection, site not specified (principal); J44.9 Chronic obstructive pulmonary disease, unspecified; Z86.711 Personal history of pulmonary embolism; G56.31 Lesion of radial nerve, right upper limb; F10.10 Alcohol abuse, uncomplicated | CPT/HCPCS: 81000 ==

== ENCOUNTER → 2023-10-26 14:15 | Outpatient (BNVA) | payer MEDICARE, MEDICAID, SELFPAY | PROVIDERS: PCP Family Medicine Adult Medicine; Visit Provider Family Medicine Adult Medicine | DX: R73.09 Other abnormal glucose (principal); E87.1 Hypo-osmolality and hyponatremia; J44.9 Chronic obstructive pulmonary disease, unspecified; J84.10 Pulmonary fibrosis, unspecified; R64 Cachexia; R63.4 Abnormal weight loss; R07.89 Other chest pain; F17.200 Nicotine dependence, unspecified, uncomplicated; Z71.6 Tobacco abuse counseling | CPT/HCPCS: 80053; 83036; 84443; 85025 ==

== ENCOUNTER 2024-04-30 07:12 | Emergency (ER) | payer MEDICARE, MEDICAID, SELFPAY ==
[2024-04-30] VITALS (69 sets, daily range): BP systolic 81–158; BP diastolic 59–109; PULSE 92–125; RESP 13–28; TEMP 36.4; O2SAT 93–100; BMI 14.8
--- NOTE | 2024-04-30 07:26 | XRR_ITS ---
PROCEDURE INFORMATION: Exam: XR Chest Exam date and time: 04/30/2024 7:31 AM Age: 69 years old Clinical indication: Cough and dyspnea and shortness of breath; Additional info: Dyspnea/cough TECHNIQUE: Imaging protocol: Radiologic exam of the chest. Views: 1 view. COMPARISON: CR XR chest 1V portable [id number] 11/19/2020 7:55 PM FINDINGS: Lungs: The lungs are hyperinflated. No consolidated infiltrates are appreciated. Pleural spaces: There is a relatively small left apical pneumothorax measuring 2.5 cm in thickness. No pleural effusion noted. Heart/Mediastinum: Heart size is normal. There is calcified plaque involving the aorta. Bones/joints: Unremarkable. XR/XR chest 1V portable [id number] IMPRESSION: 1. Lung hyperinflation. 2. Left apical pneumothorax.
--- NOTE | 2024-04-30 07:36 | W.ED.SOB ---
HPI - SOB/Dyspnea General: Chief Complaint: Shortness of Breath/Dyspnea Stated Complaint: SOB Time Seen by Provider: 04/30/24 07:23 History of Present Illness: HPI Narrative: 69-year-old female presents emergency room via EMS complaining of difficulty breathing. She has a history of COPD continues to smoke. She states she felt somewhat short of breath last night. She is not usually on oxygen at home she called EMS because of worsening shortness of breath this morning she was given 6 mg of Decadron albuterol treatments and DuoNeb treatments on the way in she is states her breathing is much better since arriving. Associated symptoms: Reports chest congestion; Deny abdominal pain, chest pain or fever(s) Related Data Home Medications Medication Instructions Recorded Confirmed acetaminophen 325 mg tablet 650 mg PO QID PRN Pain 04/30/24 04/30/24 (Tylenol) Previous Rx's Medication Instructions Recorded albuterol sulfate 90 mcg/actuation 1 inh inhalation Q4H PRN shortness 10/26/23 aerosol inhaler of breath or wheezing #8.5 grams ipratropium bromide 17 2 puff inhalation Q8H #12.9 grams 10/26/23 mcg/actuation HFA aerosol inhaler (Atrovent HFA) montelukast 10 mg tablet 10 mg PO DAILY #30 tabs 10/26/23 umeclidinium 62.5 mcg/actuation 1 inh inhalation DAILY copd #30 ea 10/26/23 blister powder for inhalation (Incruse Ellipta) Allergies Allergy/AdvReac Type Severity Reaction Status Date / Time codeine AdvReac Mild ADR-Vomitin Verified 04/30/24 07:22 g Review of Systems Const: Denies: fever(s) or chills Card: Denies: chest pain Resp: Reports: dyspnea, wheezing and chest congestion GI: Denies: abdominal pain : Denies: dysuria, urinary frequency or urinary urgency Musc: Denies: neck pain or back pain Skin/Breast: Denies: rash PFSH ED PFSH: Medical History Posterior chest pain Elevated hemoglobin A1c Pulmonary fibrosis Hyponatremia syndrome Smoker Cachexia associated with pulmonary fibrosis History of alcohol abuse End stage chronic obstructive pulmonary disease Hx of pulmonary embolus Occlusion of superior mesenteric artery Low back pain Depression COPD (chronic obstructive pulmonary disease) Surgical History Postoperative state History of tonsillectomy History of tubal ligation History of appendectomy Social History Smoking and tobacco/nicotine status: current some day tobacco/nicotine user Quit status (tobacco/nicotine): has tried quititng Alcohol intake: current Alcohol intake frequency: few times a month Alcohol type: beer Substance/Drug Use: never Physical Exam Const: GENERAL APPEARANCE: cooperative ORIENTATION/CONSCIOUSNESS: Yes awake, Yes oriented to person, Yes oriented to place and Yes oriented to time HENMT: COMMON NORMALS: normocephalic, atraumatic and hearing grossly normal bilaterally HEAD & SCALP: normocephalic and atraumatic Resp: AUSCULTATION: wheezes Cardio: COMMON NORMALS: regular rate, regular rhythm and No murmurs present (Cardio) RATE: regular rate RHYTHM: regular rhythm GI: COMMON NORMALS: Soft to palpation and No hepatosplenomegaly present AUSCULTATION: Yes normoactive bowel sounds PALPATION: Yes Soft to palpation, No Tenderness to palpation present (GI), No Guarding due to palpation present (GI) and Yes No hepatosplenomegaly present Extremity: COMMON NORMALS: normal to inspection, capillary refill normal, no clubbing, cyanosis or edema, no calf tenderness and no pedal edema Neuro: SENSORIUM/ORIENTATION: Yes oriented to person, Yes oriented to place and Yes oriented to time Skin: COMMON NORMALS: no rashes or lesions noted GENERAL SKIN EXAM: no rashes or lesions noted Procedures Chest Tube Chest Tube 1: Chest Tube Location: right and mid axillary line Size of Tube (cm): 13 Chest Tube Prep: Yes betadine prep and sterile drapes applied Local Anesthetic: lidocaine 1% and with epi Amount of anesthesia used (mL): 3 Incision Made With: #11 blade Post Procedure: sterile dressing applied and other (Adhesive for thoracic and) Tube Drainage: none Post Procedure CXR?: Yes Patient Tolerated Procedure: Yes Progress: Thoracic vent placed with 13 Slovenian tube Procedural Sedation Indication: other (Chest tube placement) ASA Class: I Time of Last PO Intake: 18:00 Preparation: personnel monitor applied, pulse oximeter, supplemental O2 applied, suction/airway equipment at bedside and IV secured Fentanyl: IV Fentanyl dose (mcg): 50 Midazolam: IV Midazolam dose (mg): 3 Course Vital Signs: Vital signs: Vital Signs Temperature 97.6 F 04/30/24 07:13 Pulse Rate 98 04/30/24 12:45 Respiratory Rate 14 04/30/24 12:45 Blood Pressure 105/66 04/30/24 12:45 Pulse Oximetry 100 04/30/24 12:45 Oxygen Delivery Me thod Nasal Cannula 04/30/24 09:00 Oxygen Flow Rate 4 04/30/24 09:00 MDM - SOB/Dyspnea Medical Decision Making Patient found to have pneumothorax thoracic vent placed see procedure notes. The postplacement chest x-ray notes increased pneumothorax at the base. This is likely because during conscious sedation the blood pressure decreased patient was placed in a Trendelenburg position was in that position for 10 to 15 minutes prior to the chest x-ray being taken. I believe the residual pneumothorax redistributed because of positioning. At the time the thoracic vent was placed was able to manually withdraw over 800 mL of air through the vent tube. CT done shows what appears to be a loculated pneumothorax on the left side as well. There is a little bit of residual pneumothorax at the base of the right lung bleed that occurred because the patient had transient hypotension after procedural sedation was in Trendelenburg for a time. She also received a brief course of Levophed to manage her blood pressure blood pressure resolved and was stopped. Given bilateral pneumothoraces and 1 that appears to be loculated suspect the patient will need to see pulmonology. She is tolerating the pneumothorax on the left very well at this time did not intervene on this. Since her sats are good on 3 L. [facility] transfer [facility] for consultation with pulmonology discussed with family and patient. Medical Records I reviewed the patient's medical records. Lab Data I reviewed the patient's lab results. 04/30/24 07:25 04/30/24 07:25 Labs/Radiology: Radiology Impressions Chest X-Ray 04/30/24 08:40 IMPRESSION: 1. Interval placement of small bore thoracotomy tube with tip overlying the upper mediastinum. 2. Redistribution of left-sided pneumothorax which on a single frontal view does appear to be overall slightly smaller. 3. Lung hyperinflation. ADDENDUM: 04/30/24921 Addendum: Discussed with referring physician the inability for me to document that the thoracotomy tube is in the left pleural space given its location on chest x-ray. COMMENT: THIS REPORT CONTAINS FINDINGS THAT MAY BE CRITICAL TO PATIENT CARE. The exam findings were verbally communicated by me to LANDON VERMA via telephone conference at 9:20 AM CAPITAL EQUIPMENT SPECIALIST on 04/30/2024. The findings were acknowledged and understood. Chest CT 04/30/24 08:58 Impression: 1. Bilateral pneumothoraces, 15 to 20% on the left and 5 to 10% on the right. 2. Small right chest tube in the superior aspect of the right thorax ending in the midline. 3. Hyperinflation. 4. Atherosclerosis. Laboratory Results WBC 11.31 10^3/uL (3.29-11.43) 04/30/24 07:25 RBC 5.02 10^6/uL (3.85-5.65) 04/30/24 07:25 Hgb 17.00 g/dL (11.27-16.99) H 04/30/24 07:25 Hct 52.1 % (36-47) H 04/30/24 07:25 MCV 103.8 fl (85-98) H 04/30/24 07:25 MCH 33.9 pg (27-33) H 04/30/24 07:25 MCHC 32.6 g/dL (30-55) 04/30/24 07:25 RDW 13.1 % (12.1-15.1) 04/30/24 07:25 Plt Count 220 10^3/cmm (157-399) 04/30/24 07:25 MPV 10.9 fL (7.4-10.4) H 04/30/24 07:25 Lymph % (Auto) Not Reportable 04/30/24 07:25 [place] % (Auto) Not Reportable 04/30/24 07:25 Lymph # (Auto) Not Reportable 04/30/24 07:25 [place] # (Auto) Not Reportable 04/30/24 07:25 Total Counted 100 (0-100) 04/30/24 07:25 Atypical Lymphs % 41.0 % (0-5) H 04/30/24 07:25 Absolute Neutrophils 4.0 10^3/cmm (1.4-6.5) 04/30/24 07:25 Segmented Neutrophils 35 % 04/30/24 07:25 Band Neutrophils 0.0 % 04/30/24 07:25 Absolute Lymphocytes 5.7 10^3/cmm (1.2-3.4) H 04/30/24 07:25 Lymphocytes (Manual) 9 % 04/30/24 07:25 Monocytes (Manual) 13.0 % 04/30/24 07:25 Absolute Monocytes 1.5 10^3/cmm (0.1-0.6) H 04/30/24 07:25 Eosinophils (Manual) 2 % 04/30/24 07:25 Absolute Eosinophils 0.2 10^3/cmm (0.0-0.7) 04/30/24 07:25 Basophils (Manual) 0.0 % 04/30/24 07:25 Absolute Basophils 0.0 10^3/cmm (0.0-0.2) 04/30/24 07:25 Platelet Estimate Normal (Normal) 04/30/24 07:25 Specimen Type Arterial 04/30/24 08:43 Sample Site Brachial, left 04/30/24 08:43 ABG pH 7.22 (7.35-7.45) L 04/30/24 08:43 ABG pCO2 22.2 mmHg (35-45) L 04/30/24 08:43 ABG pO2 61.3 mmHg (80.0-100.0) L 04/30/24 08:43 ABG HCO3 9.1 mmol/L (22-26) L 04/30/24 08:43 ABG O2 Saturation 88.3 04/30/24 08:43 ABG Base Excess -17.1 mmol/L (-2.0-2.0) L 04/30/24 08:43 Glen Test Pos 04/30/24 08:43 A-a O2 Gradient 7.9 mmHg (5-10) 04/30/24 08:43 Hematocrit 18.3 % (37-47) L 04/30/24 08:43 Hgb O2 Saturation 84.5 % (95-100) L 04/30/24 08:43 Carboxyhemoglobin 3.1 %THgb (0.4-20.1) 04/30/24 08:43 Methemoglobin 1.2 % (0.4-1.5) 04/30/24 08:43 Total Hemoglobin 6.0 g/dL (12-16) L 04/30/24 08:43 Sodium 143.0 mmol/L (131-143) 04/30/24 08:43 Potassium 1.1 mmol/L (3.5-5.0) L 04/30/24 08:43 Glucose 49.0 mg/dL (70-115) L 04/30/24 08:43 Ionized Calcium 0.5 mmol/L (1.1-1.4) L* 04/30/24 08:43 O2 Delivery Device Nc 04/30/24 08:43 O2 Liters/Min 4.0 % 04/30/24 08:43 Tunnel Kiln Operator ID [place] 04/30/24 08:43 Sodium 129 mmol/L (136-145) L 04/30/24 07:25 Potassium 4.1 mmol/L (3.5-5.1) 04/30/24 07:25 Chloride 92 mmol/L (98-107) L 04/30/24 07:25 Carbon Dioxide 24 mmol/L (22-29) 04/30/24 07:25 Anion Gap 17.1 (5-19) 04/30/24 07:25 BUN 5 mg/dL (8-23) L 04/30/24 07:25 Creatinine 0.5 mg/dL (0.5-0.9) 04/30/24 07:25 GFR Calculation Not Reportable 04/30/24 07:25 Glucose 198 mg/dL (65-115) H 04/30/24 07:25 Calculated Osmolality 271 mOsm/kg (285-295) L 04/30/24 07:25 Calcium 9.4 mg/dL (8.5-10.5) 04/30/24 07:25 Magnesium 2.1 mg/dL (1.7-2.3) 04/30/24 07:25 Total Bilirubin 0.4 mg/dL (0.15-1.2) 04/30/24 07:25 AST 24 U/L (0-32) 04/30/24 07:25 ALT 15 U/L (0-33) 04/30/24 07:25 Alkaline Phosphatase 116 U/L (35-105) H 04/30/24 07:25 Total Protein 7.2 g/dL (6.6-8.7) 04/30/24 07:25 Albumin 4.2 g/dL (3.5-5.2) 04/30/24 07:25 Globulin 3.0 g/dL (1.3-4.6) 04/30/24 07:25 Coronavirus (PCR) Negative (Negative) 04/30/24 09:12 Influenza A (PCR) Negative (Negative) 04/30/24 09:12 Influenza Type B (PCR) Negative (Negative) 04/30/24 09:12 RSV (PCR) Negative (Negative) 04/30/24 09:12 All radiology interpretation(s) finalized by discharge Discharge Plan Discharge Patient Disposition: Xfer Short-Term Hosp Clinical Impression: Bilateral pneumothoraces, End stage chronic obstructive pulmonary disease, Pulmonary fibrosis Condition: Stable Prescriptions: No Action albuterol sulfate 90 mcg/actuation HFA aerosol inhaler 1 inh inhalation Q4H PRN (Reason: shortness of breath or wheezing) Qty: 8.5 5RF Atrovent HFA 17 mcg/actuation HFA aerosol inhaler 2 puff inhalation Q8H Qty: 12.9 5RF montelukast 10 mg tablet 10 mg PO DAILY Qty: 30 5RF Incruse Ellipta 62.5 mcg/actuation blister with device 1 inh inhalation DAILY Qty: 30 5RF acetaminophen [Tylenol] 325 mg Tablet 650 mg PO QID PRN (Reason: Pain) Referrals: James Eckert MD [Primary Care Provider] - Coding Level of Care Code ED Virtualization Architect for Rashad Castrejon
[2024-04-30 07:38] LABS: Hematocrit 52.1 % (36-47); Mean Corpuscular HGB Conc 32.6 g/dL (30-55); Mean Corpuscular Hemoglobin 33.9 pg (27-33); Mean Corpuscular Volume 103.8 fl (85-98); Mean Platelet Volume 10.9 fL (7.4-10.4); Platelet Count 220 10^3/cmm (157-399); Red Blood Count 5.02 10^6/uL (3.85-5.65); Red Cell Distribution Width 13.1 % (12.1-15.1); White Blood Count 11.31 10^3/uL (3.29-11.43)
[2024-04-30] MEDS: dexamethasone 10 mg/mL INJ IM (07:52)
[2024-04-30 07:55] LABS: Alanine Aminotransferase 15 U/L (0-33); Albumin Level 4.2 g/dL (3.5-5.2); Alkaline Phosphatase 116 U/L (35-105); Anion Gap 17.1 (5-19); Aspartate Amino Transferase 24 U/L (0-32); Blood Urea Nitrogen 5 mg/dL (8-23); Calcium 9.4 mg/dL (8.5-10.5); Carbon Dioxide 24 mmol/L (22-29); Chloride 92 mmol/L (98-107); Creatinine Clr Calc Pharmacy 43.8765; Glucose 198 mg/dL (65-115); Magnesium 2.1 mg/dL (1.7-2.3); Osmolality Calculated 271 mOsm/kg (285-295); Potassium 4.1 mmol/L (3.5-5.1); Sodium 129 mmol/L (136-145); Total Bilirubin 0.4 mg/dL (0.15-1.2); Total Protein 7.2 g/dL (6.6-8.7)
[2024-04-30] MEDS: ipratropium-albuterol 3 mL Neb INHALATION (07:57)
[2024-04-30 08:19] LABS: Absolute Eosinophils 0.2 10^3/cmm (0.0-0.7); Eosinophils 2 %; Lymphocytes 9 %; Monocytes Absolute 1.5 10^3/cmm (0.1-0.6); Segmented Neutrophils 35 %; Slide Review Slide Review Perform; Total Cells Counted 100 (0-100)
[2024-04-30 08:20] LABS: Lymphocytes Absolute 5.7 10^3/cmm (1.2-3.4); Platelet Estimate Normal (Normal)
--- NOTE | 2024-04-30 08:40 | XRR_ITS ---
PROCEDURE INFORMATION: Exam: XR Chest Exam date and time: 04/30/2024 8:49 AM Age: 69 years old Clinical indication: Device placement; Chest tube TECHNIQUE: Imaging protocol: Radiologic exam of the chest. Views: 1 view. COMPARISON: CR XR chest 1V portable [id number] 04/30/2024 7:31 AM FINDINGS: Tubes, catheters and devices: There is a small bore thoracotomy tube with its tip overlying the upper mediastinum. Lungs: The lungs are hyperinflated. Pleural spaces: There is a small pneumothorax on the left. The pneumothorax component at the left lung apex appears to be smaller however, the pneumothorax component at the left costophrenic angle appears to be slightly larger. Heart/Mediastinum: Heart size is normal. There is calcified plaque involving the aorta. Bones/joints: Unremarkable. XR/XR chest 1V portable [id number] IMPRESSION: 1. Interval placement of small bore thoracotomy tube with tip overlying the upper mediastinum. 2. Redistribution of left-sided pneumothorax which on a single frontal view does appear to be overall slightly smaller. 3. Lung hyperinflation.
[2024-04-30 08:54] LABS: ABG PCO2 22.2 mmHg (35-45); ABG PH Result 7.22 (7.35-7.45); Alveolar-Arterial Oxygen Gradi 7.9 mmHg (5-10); Arterial Blood Gas Hematocrit 18.3 % (37-47); Base Excess ABG -17.1 mmol/L (-2.0-2.0); Blood Gas Allen Test Pos; Blood Gas Operator Identificat WALCI; Blood Gas Sample Site Brachial, left; Blood Gas Sample Type Arterial; Carboxyhemoglobin 3.1 %THgb (0.4-20.1); HCO3 ABG 9.1 mmol/L (22-26); HGB O2 Sat 84.5 % (95-100); Ionized Calcium Level - ABG 0.5 mmol/L (1.1-1.4); Methemoglobin 1.2 % (0.4-1.5); Oxygen Device NC; Oxygen Saturation ABG 88.3; PO2 ABG 61.3 mmHg (80.0-100.0); Potassium Level - ABG 1.1 mmol/L (3.5-5.0)
[2024-04-30] MEDS: sodium chloride 0.9% 500 ML 999 ML IV (08:54)
--- NOTE | 2024-04-30 08:58 | CT_ITS ---
WS: [id number] CT scan of the chest with IV contrast, additional two-dimensional coronal and sagittal reconstruction was performed. 04/30/2024 Clinical Data: pneumothorax Comparison: Portable chest, 04/30/2024, 0850 hours DLP: 214.[address] scans at [facility] use at least one of these dose optimization techniques: automated e xposure control; mA and/or kV adjustment per patient size (includes targeted exams where dose is matc hed to clinical indication); or iterative reconstruction. Findings: There are small bilateral pneumothoraces. There is a small right chest tube which enters the upper ri ght chest and ends in the midportion of the mediastinum. The left pneumothorax is larger than the ri ght pneumothorax. There is hyperinflation of the lungs. No nodules, masses or effusions are seen. The heart size is normal with no pericardial effusion. The pulmonary arterial system and thoracic aorta demonstrate no dilatations. The thoracic aortic arch an d descending thoracic aorta show calcification and tortuosity. The branches of the aortic arch all sh ow atherosclerotic calcification. There is no axillary or significant mediastinal adenopathy. The upper abdomen shows no abnormalities. There is a simple left renal cortical cyst in the posterio r lateral aspect. The thoracic spine shows osteoporosis and multiple old compression fractures. CT/CT chest w con* [id number] Impression: 1. Bilateral pneumothoraces, 15 to 20% on the left and 5 to 10% on the right. 2. Small right chest tube in the superior aspect of the right thorax ending in the midline. 3. Hyperinflation. 4. Atherosclerosis.
--- NOTE | 2024-04-30 08:58 | ECG_ITS ---
[email or web address] Test Date: 2024-04-30 Pat Name: Anne Marie Underwood Department: Room: Gender: Female Loadmaster: : 1955 Requested By: Landon Shell Order Number: [id number] Jovan MD: Georgia Dang M.D. Measurements Intervals [place] Rate: 113 P: 81 IA: 155 QRS: 63 QRSD: 136 T: 167 QT: 356 QTc: 489 Interpretive Statements SINUS TACHYCARDIA POSSIBLE RIGHT ATRIAL ENLARGEMENT [0.25mV P-WAVE] POSSIBLE LEFT ATRIAL ENLARGEMENT [-0.1mV P-WAVE IN V1/V2] INTRAVENTRICULAR CONDUCTION DELAY [130+ ms QRS DURATION] POSSIBLE ANTERIOR MYOCARDIAL INFARCTION , OF INDETERMINATE AGE [30 ms Q WAVE IN V3/V4, OR R < 0.2 mV IN V4] INTERPRETATION BASED ON A DEFAULT AGE OF 40 YEARS Compared to ECG 11/19/2020 19:58:48 Intraventricular conduction delay now present.Myocardial infarct finding now present Sinus rhythm no longer present.Left bundle-branch block no longer present Electronically Signed On 04-30-2024 21:20:26 FOOD AND BEVERAGE ANALYST by Georgia Dang M.D. [id number]
[2024-04-30] MEDS: norepinephrine 4 MG/250 ML BAG 30 MG IV (09:02)
[2024-04-30] MEDS: fentaNYL 50 mcg/mL INJ 2mL IVP (09:49)
[2024-04-30] MEDS: midazolam 1 mg/mL INJ 2 mL 3 MG IVP (09:50)
[2024-04-30 10:37] LABS: Covid PCR NEGATIVE (Negative); Influenza A NEGATIVE (Negative); Influenza B NEGATIVE (Negative); Respiratory Syncytial Virus Ce NEGATIVE (Negative)
--- NOTE | 2024-04-30 14:30 | ECG_ITS ---
[facility] Test Date: 2024-04-30 Pat Name: Anne Marie Underwood Department: Room: Gender: Female Technical Supervisor: : 1955 Requested By: Landon Shell Order Number: [id number] Jovan MD: Georgia Dang M.D. Measurements Intervals [place] Rate: 104 P: 268 CO: 192 QRS: 50 QRSD: 130 T: 106 QT: 386 QTc: 510 Interpretive Statements SINUS TACHYCARDIA POSSIBLE ANTERIOR MYOCARDIAL INFARCTION , OF INDETERMINATE AGE [30 ms Q WAVE IN V3/V4, OR R < 0.2 mV IN V4] Compared to ECG 04/30/2024 07:28:57 Intraventricular conduction delay no longer present Myocardial infarct finding still present Electronically Signed On 04-30-2024 21:20:54 MOTORCYCLE TESTER by Georgia Dang M.D. [id number]
[2024-04-30] MEDS: LORazepam 2 mg/mL INJ 1 mL IVP (22:06)
== END 2024-04-30 22:07 | disposition short-term general hospital (02) ==
PROVIDERS: Emergency Provider Family Medicine; PCP Family Medicine Adult Medicine
DX: J93.83 Other pneumothorax (principal); J44.89 Other specified chronic obstructive pulmonary disease; J84.10 Pulmonary fibrosis, unspecified; Z11.52 Encounter for screening for COVID-19; Z72.0 Tobacco use
CPT/HCPCS: 0241U; 32551; 36415; 36600; 71045; 71260; 80051; 80053; 82330; 82805; 83735; 85007; 85025; 87040; 93005; 94640; 96365; 96366; 96372; 96375; 99152; 99285; J1100; J2060; J2250; J3010; J7040; Q9967

== ENCOUNTER 2024-05-17 20:00 | Inpatient (IN) | payer MEDICARE, SELFPAY ==
[2024-05-17 20:00] VITALS: BP 153/103; PULSE 162; RESP 24; TEMP 36.8; O2SAT 95; BMI 16.4
--- NOTE | 2024-05-17 20:04 | XRR_ITS ---
PROCEDURE INFORMATION: Exam: XR Chest Exam date and time: 05/17/2024 8:06 PM Age: 69 years old Clinical indication: Patient HX: EMS arrival for resp distress. History of bilat pneumothorax in apr. ; Additional info: SOB TECHNIQUE: Imaging protocol: Radiologic exam of the chest. Views: 1 view. COMPARISON: CT chest w con* [id number] 04/30/2024 9:29 AM FINDINGS: Lungs: Centrilobular emphysema changes throughout both lungs, characterized by cystic changes in the upper lungs and subpleural scarring and fibrosis. Reticular infiltrates throughout both lower lungs may be scarring versus pneumonia infiltrates. Scarring versus atelectasis at the right costophrenic angle. Pleural spaces: There is a trace left apical pneumothorax, less than 5% which is most likely residual from the previously seen pneumothoraces. No right pneumothorax is seen. Heart/Mediastinum: Unremarkable. No cardiomegaly. Vasculature: Severe aortic atherosclerosis. Bones/joints: Unremarkable. XR/XR chest 1V portable [id number] IMPRESSION: Trace residual left apical pneumothorax. No right pneumothorax is seen. Emphysema with increased reticular markings at the lung bases which may be scarring versus pneumonia.
--- NOTE | 2024-05-17 20:08 | ECG_ITS ---
[facility] Test Date: 2024-05-17 Pat Name: Joceline Underwood Department: Room: Gender: Female Grid Trimmer: : 1955 Requested By: Stanley Bee Order Number: [id number] Jovan MD: Georgia Dang M.D. Measurements Intervals [place] Rate: 165 P: 0 RI: 0 QRS: 78 QRSD: 133 T: 91 QT: 261 QTc: 433 Interpretive Statements Possible ATRIAL FIBRILLATION WITH RAPID VENTRICULAR RESPONSE INTRAVENTRICULAR CONDUCTION DELAY [130+ ms QRS DURATION] CRITICAL TEST RESULT Compared to ECG 04/30/2024 14:30:25 Intraventricular conduction delay now present Sinus tachycardia no longer present Myocardial infarct finding no longer present Electronically Signed On 05-17-2024 21:30:55 PHYSICIAN by Georgia Dang M.D. [id number]
[2024-05-17] MEDS: dilTIAZem 5 mg/mL SDV 5 mL 15 MG IVP (20:10)
[2024-05-17 20:20] LABS: ABG PCO2 35.8 mmHg (35-45); ABG PH Result 7.44 (7.35-7.45); Arterial Blood Gas Hematocrit 48.5 % (37-47); Base Excess ABG 0.6 mmol/L (-2.0-2.0); Blood Gas Sample Site Brachial, right; Blood Gas Sample Type Arterial; HCO3 ABG 24.3 mmol/L (22-26); Oxygen Device NRB
[2024-05-17] MEDS: sodium chloride 0.9% 1,000 ML 999 ML IV ×2 (20:20→22:51)
[2024-05-17 20:21] VITALS: PULSE 148; RESP 27; O2SAT 92
[2024-05-17 20:25] LABS: Basophils # 0.1 10^3/uL (0.0-0.1); Basophils % 0.3 %; Eosinophils % 0.1 %; Hematocrit 44.6 % (36-47); Lymphocytes # 1.5 10^3/uL (0.8-4.8); Lymphocytes % 9.7 %; Mean Corpuscular HGB Conc 33.6 g/dL (30-55); Mean Corpuscular Hemoglobin 33.2 pg (27-33); Mean Corpuscular Volume 98.7 fl (85-98); Mean Platelet Volume 10.1 fL (7.4-10.4); Monocytes % 6.4 %; Neutrophils # 13.05 10^3/uL (1.8-7.7); Neutrophils % 82.6 %; Nucleated Red Blood Cells % 0 %; Platelet Count 449 10^3/cmm (157-399); Red Blood Count 4.52 10^6/uL (3.85-5.65); Red Cell Distribution Width 12.5 % (12.1-15.1); White Blood Count 15.79 10^3/uL (3.29-11.43)
--- NOTE | 2024-05-17 20:25 | W.ED.SOB ---
HPI - SOB/Dyspnea General: Chief Complaint: Shortness of Breath/Dyspnea Stated Complaint: SOB Time Seen by Provider: 05/17/24 20:02 History of Present Illness: HPI Narrative: 69-year-old female who was diagnosed with bilateral pneumothoraces right greater than left requiring chest tube placement on 04/30. She was discharged from the hospital 2 weeks ago tomorrow she says. She presents with sudden onset severe shortness of breath this evening. She had used some rescue oxygen they sell [facility] [employer] without improvement. No fever. Some sputum production. Related Data Home Medications Medication Instructions Recorded Confirmed acetaminophen 325 mg tablet 650 mg PO QID PRN Pain 04/30/24 05/18/24 (Tylenol) Previous Rx's Medication Instructions Recorded albuterol sulfate 90 mcg/actuation 1 inh inhalation Q4H PRN shortness 10/26/23 aerosol inhaler of breath or wheezing #8.5 grams ipratropium bromide 17 2 puff inhalation Q8H #12.9 grams 10/26/23 mcg/actuation HFA aerosol inhaler (Atrovent HFA) montelukast 10 mg tablet 10 mg PO DAILY #30 tabs 10/26/23 umeclidinium 62.5 mcg/actuation 1 inh inhalation DAILY copd #30 ea 10/26/23 blister powder for inhalation (Incruse Ellipta) Allergies Allergy/AdvReac Type Severity Reaction Status Date / Time codeine AdvReac Mild ADR-Vomitin Verified 04/30/24 07:22 g PFSH ED PFSH: Medical History Posterior chest pain Elevated hemoglobin A1c Pulmonary fibrosis Hyponatremia syndrome Smoker Cachexia associated with pulmonary fibrosis History of alcohol abuse End stage chronic obstructive pulmonary disease Hx of pulmonary embolus Occlusion of superior mesenteric artery Low back pain Depression COPD (chronic obstructive pulmonary disease) Surgical History Postoperative state History of tonsillectomy History of tubal ligation History of appendectomy Social History Smoking and tobacco/nicotine status: current some day tobacco/nicotine user Quit status (tobacco/nicotine): has tried quititng Alcohol intake: current Alcohol intake frequency: few times a month Alcohol type: beer Substance/Drug Use: never Physical Exam Const: COMMON NORMALS: no acute distress GENERAL APPEARANCE: cooperative, in distress, ill appearing and frail appearing HENMT: COMMON NORMALS: normocephalic, atraumatic and Normal external nose present HEAD & SCALP: normocephalic and atraumatic FACE & SINUS: normal facial exam and face symmetric NOSE: Normal external nose present Eye: COMMON NORMALS: Equal, round and reactive pupils present and EOMs intact bilaterally PUPIL: Yes Equal, round and reactive pupils present Neck/C-Spine: GENERAL: Yes trachea midline Chest: CHEST: Yes Symmetrical chest wall rise Resp: EFFORT & INSPECTION: Yes symmetric chest movement, Yes respiratory distress and Yes labored AUSCULTATION: rhonchi Cardio: COMMON NORMALS: regular rhythm RATE: tachycardic RHYTHM: regular rhythm GI: COMMON NORMALS: Normal to inspection, nondistended, normoactive bowel sounds present Extremity: COMMON NORMALS: no pedal edema Neuro: JARON COMA SCALE: document GCS findings Jaron coma scale eye opening: Spontaneous [place] coma scale verbal response: Orientated [place] coma scale motor response: Obey commands Jaron coma scale total score: 15 SENSORY EXAM: Yes extremities (intact) Psych: COMMON NORMALS: speech normal SPEECH: Yes normal speech Skin: COMMON NORMALS: no rashes or lesions noted GENERAL SKIN EXAM: no rashes or lesions noted Course Vital Signs: Vital signs: Vital Signs Temperature 97.4 F L 05/18/24 11:45 Pulse Rate 86 05/18/24 15:13 Respiratory Rate 17 05/18/24 15:07 Blood Pressure 123/63 05/18/24 11:45 Pulse Oximetry 92 05/18/24 15:07 Oxygen Delivery Me thod Nasal Cannula 05/18/24 15:07 Oxygen Flow Rate 2 05/18/24 15:07 Fraction of Inspir ed Oxygen 45 05/17/24 20:21 MDM - SOB/Dyspnea Medical Decision Making Patient arrives with labored breathing, profoundly tachycardic in the 160s. Diltiazem, 15 mg bolus improved to some degree down to 150s. Fluid bolus, and oxygenation on BiPAP has improved her heart rate down to the 130s currently. Saturations on BiPAP are 98% currently. She is awake and talking. Chest x-ray done prior to BiPAP placement, shows no pneumothoraces currently. It does show bibasilar parenchymal infiltrate. Patient?s oxygenation status improved significantly following bipap treatment. She was able to come off of bipap in the ER. However, she still oxygen dependent. She does not have oxygen at home. She has lactic acid elevation as well as Leukocytosis, and tachycardia indicative of sepsis. Heart rate has improved quite a bit with fluid bolus, and initial atrial fibrillation this RVR has converted back to sinus rhythm period . She received 2 liters of fluid in the ER, which is more than a standard 30 milliliter per kilogram sepsis bolus. She is covered with antibiotics. Respiratory panel is pending. CTA has been ordered. She will be admitted. Hospitals agrees to see the patient. Lab Data 05/18/24 05:56 05/18/24 05:56 Labs/Radiology: Radiology Impressions Chest X-Ray 05/17/24 20:04 IMPRESSION: Trace residual left apical pneumothorax. No right pneumothorax is seen. Emphysema with increased reticular markings at the lung bases which may be scarring versus pneumonia. Chest CTA 05/17/24 23:37 IMPRESSION: Emphysema with superimposed pneumonia consolidation at the lung bases. Severe atherosclerosis. COMMENTS: The presence of pulmonary emphysema on CT is an independent risk factor for lung cancer. In the absence of a history or active diagnosis of lung cancer, it is recommended that this patient with emphysema be evaluated for enrollment in a low dose CT lung cancer screening program. Laboratory Results WBC 15.79 10^3/uL (3.29-11.43) H 05/17/24 20:00 RBC 4.52 10^6/uL (3.85-5.65) 05/17/24 20:00 Hgb 15.00 g/dL (11.27-16.99) 05/17/24 20:00 Hct 44.6 % (36-47) 05/17/24 20:00 MCV 98.7 fl (85-98) H 05/17/24 20:00 MCH 33.2 pg (27-33) H 05/17/24 20:00 MCHC 33.6 g/dL (30-55) 05/17/24 20:00 RDW 12.5 % (12.1-15.1) 05/17/24 20:00 Plt Count 449 10^3/cmm (157-399) H 05/17/24 20:00 MPV 10.1 fL (7.4-10.4) 05/17/24 20:00 Neut % (Auto) 82.6 % 05/17/24 20:00 Lymph % (Auto) 9.7 % 05/17/24 20:00 [place] % (Auto) 6.4 % 05/17/24 20:00 Eos % (Auto) 0.1 % 05/17/24 20:00 Baso % (Auto) 0.3 % 05/17/24 20:00 Neut # (Auto) 13.05 10^3/uL (1.8-7.7) H 05/17/24 20:00 Lymph # (Auto) 1.5 10^3/uL (0.8-4.8) 05/17/24 20:00 [place] # (Auto) 1.0 10^3/uL (0.2-0.9) H 05/17/24 20:00 Eos # (Auto) 0.0 10^3/uL (0.0-0.8) 05/17/24 20:00 Baso # (Auto) 0.1 10^3/uL (0.0-0.1) 05/17/24 20:00 Nucleated RBC % (auto) 0 % 05/17/24 20:00 Nucleated RBCs # 0.0 /100WBC 05/17/24 20:00 D-Dimer 4.89 ug/mLFEU (0-0.59) H 05/17/24 20:00 Specimen Type Arterial 05/17/24 20:10 Sample Site Brachial, right 05/17/24 20:10 ABG pH 7.44 (7.35-7.45) 05/17/24 20:10 ABG pCO2 35.8 mmHg (35-45) 05/17/24 20:10 ABG pO2 100.0 mmHg (80.0-100.0) 05/17/24 20:10 ABG HCO3 24.3 mmol/L (22-26) 05/17/24 20:10 ABG Base Excess 0.6 mmol/L (-2.0-2.0) 05/17/24 20:10 Glen Test N/a 05/17/24 20:10 Hematocrit 48.5 % (37-47) H 05/17/24 20:10 O2 Delivery Device Nrb 05/17/24 20:10 O2 Liters/Min 15.0 % 05/17/24 20:10 Diesel Pile Hammer Operator ID [email or web address] 05/17/24 20:10 Sodium 129 mmol/L (136-145) L 05/17/24 20:00 Potassium 3.9 mmol/L (3.5-5.1) 05/17/24 20:00 Chloride 78 mmol/L (98-107) L 05/17/24 20:00 Carbon Dioxide 24 mmol/L (22-29) 05/17/24 20:00 Anion Gap 30.9 (5-19) H 05/17/24 20:00 BUN 10 mg/dL (8-23) 05/17/24 20:00 Creatinine 0.6 mg/dL (0.5-0.9) 05/17/24 20:00 GFR Calculation Not Reportable 05/17/24 20:00 Glucose 150 mg/dL (65-115) H 05/17/24 20:00 Calculated Osmolality 270 mOsm/kg (285-295) L 05/17/24 20:00 Lactic Acid 6.7 mmol/L (0.5-2.2) H* 05/17/24 20:00 Lactic Acid (Sepsis) 2.1 mmol/L (0.5-2.2) 05/17/24 22:09 Calcium 9.3 mg/dL (8.5-10.5) 05/17/24 20:00 Total Bilirubin 0.6 mg/dL (0.15-1.2) 05/17/24 20:00 AST 20 U/L (0-32) 05/17/24 20:00 ALT 10 U/L (0-33) 05/17/24 20:00 Alkaline Phosphatase 189 U/L (35-105) H 05/17/24 20:00 Troponin T Baseline 16 ng/L (0-10) H 05/17/24 20:00 Troponin T 120 Minute 60.21 ng/L (0-10) H 05/17/24 22:09 Delta Troponin T 44.21 ABS# (0-10) H* 05/17/24 22:09 Troponin T Hi Sens 6Hr 59.22 ng/L (0-10) H 05/18/24 01:59 Troponin T Hi Sens 6Hr Delta 43.22 ng/L (0-12) H* 05/18/24 01:59 NT-Pro-B Natriuret Pep 2964 pg/mL (0-125) H 05/17/24 20:00 Total Protein 6.4 g/dL (6.6-8.7) L 05/17/24 20:00 Albumin 3.3 g/dL (3.5-5.2) L 05/17/24 20:00 Globulin 3.1 g/dL (1.3-4.6) 05/17/24 20:00 Procalcitonin 0.31 ng/mL (0-0.5) 05/17/24 20:00 Adenovirus (PCR) Not detected (NOT DETECT) 05/17/24 23:40 C. pneumoniae DNA (PCR) Not detected (NOT DETECT) 05/17/24 23:40 Coronavirus 229E (PCR) Not detected (NOT DETECT) 05/17/24 23:40 Human Metapneumovir PCR Not detected (NOT DETECT) 05/17/24 23:40 Influenza A (H1) PCR Not detected (NOT DETECT) 05/17/24 23:40 Influ A (H1/09) PCR Not detected (NOT DETECT) 05/17/24 23:40 Influenza A (H3) PCR Not detected (NOT DETECT) 05/17/24 23:40 Influenza Type A (PCR) Not detected (NOT DETECT) 05/17/24 23:40 Influenza Type B (PCR) Not detected (NOT DETECT) 05/17/24 23:40 M. pneumoniae (PCR) Not detected (NOT DETECT) 05/17/24 23:40 Parainfluenza 1 (PCR) Not detected (NOT DETECT) 05/17/24 23:40 Parainfluenza 2 (PCR) Not detected (NOT DETECT) 05/17/24 23:40 Parainfluenza 3 (PCR) Not detected (NOT DETECT) 05/17/24 23:40 Parainfluenza 4 (PCR) Not detected (NOT DETECT) 05/17/24 23:40 RSV Type A (PCR) Not detected (NOT DETECT) 05/17/24 23:40 RSV Type B (PCR) Not detected (NOT DETECT) 05/17/24 23:40 Entero/Rhino (PCR) Detected (NOT DETECT) A 05/17/24 23:40 SARS-CoV-2 (PCR) Not detected (NOT DETECT) 05/17/24 23:40 All radiology interpretation(s) finalized by discharge Critical Care Time Critical Care Time: Critical Care Time: Yes Total Critical Care Time: 35 Attestation: This case had a high probability of a clinically significant, sudden, or life threatening deterioration of this patient's condition which required my full and direct attention, intervention and personal management. Time is independent of any procedures performed. Discharge Plan Discharge Patient Disposition: Admitted As Inpatient Admit Provider: Lev Lanier Clinical Impression: End stage chronic obstructive pulmonary disease, Pneumonia, Hypoxia, Sepsis, Atrial fib/flutter, transient Condition: Serious Coding Level of Care Code ED Monkey Trainer for Rashad Castrejon
[2024-05-17 20:40] LABS: Troponin(5th) Baseline 16 ng/L (0-10)
[2024-05-17 20:46] LABS: Alanine Aminotransferase 10 U/L (0-33); Albumin Level 3.3 g/dL (3.5-5.2); Alkaline Phosphatase 189 U/L (35-105); Aspartate Amino Transferase 20 U/L (0-32); Blood Urea Nitrogen 10 mg/dL (8-23); Calcium 9.3 mg/dL (8.5-10.5); Carbon Dioxide 24 mmol/L (22-29); Chloride 78 mmol/L (98-107); Creatinine Clr Calc Pharmacy 48.4952; Globulin 3.1 g/dL (1.3-4.6); Glucose 150 mg/dL (65-115); Osmolality Calculated 270 mOsm/kg (285-295); Sodium 129 mmol/L (136-145); Total Bilirubin 0.6 mg/dL (0.15-1.2); Total Protein 6.4 g/dL (6.6-8.7)
[2024-05-17 20:47] LABS: Anion Gap 30.9 (5-19); Potassium 3.9 mmol/L (3.5-5.1)
[2024-05-17 20:48] LABS: Lactic Sepsis W/Reflex 6.7 mmol/L (0.5-2.2)
[2024-05-17 20:50] LABS: NT Pro B Type Natriuretic Pept 2964 pg/mL (0-125)
[2024-05-17 21:13] LABS: Reflex Lactate Order REFLEX LACTIC ORDERD
[2024-05-17] MEDS: piperacillin-tazobactam 4.5 GM in sodium chloride 0.9% (plus) 50 ML IV (22:00)
[2024-05-17 22:36] LABS: Troponin 5 2HR 60.21 ng/L (0-10)
[2024-05-17 22:37] LABS: Lactic Acid level (Lactate) 2.1 mmol/L (0.5-2.2)
[2024-05-17 22:38] LABS: Troponin 5 2HR Delta 44.21 ABS# (0-10)
[2024-05-17] MEDS: VANCOMYCIN ADD-Vantage 1,000 MG in 0.9% NaCl ADD-Vantage 250 ML 250 MG IV (22:38)
--- NOTE | 2024-05-17 23:37 | CTR_ITS ---
PROCEDURE INFORMATION: Exam: CTA Chest With Contrast Exam date and time: 05/18/2024 2:15 AM Age: 69 years old Clinical indication: Abnormal findings; Abnormal diagnostic tests; Elevated d-dimer; Shortness of breath; Patient HX: SOB with hypoxia and elevated dimer. History of copd. TECHNIQUE: Imaging protocol: Computed tomographic angiography of the chest with contrast. Exam focused on the arteries. 3D rendering (Not supervised by radiologist): MIP and/or 3D reconstructed images were created by the technologist. Radiation optimization: All CT scans at this facility use at least one of these dose optimization techniques: automated exposure control; mA and/or kV adjustment per patient size (includes targeted exams where dose is matched to clinical indication); or iterative reconstruction. Contrast material: OMNI 350; Contrast volume: 54 ml; Contrast route: INTRAVENOUS (IV); COMPARISON: CT chest w con* [id number] 04/30/2024 9:29 AM RADIATION DOSE METRICS: Total DLP (mGy-cm): 194.19 FINDINGS: Pulmonary arteries: Normal. No pulmonary emboli. Aorta: There is severe aortic atherosclerosis. Lungs: Centrilobular emphysema changes throughout both lungs, characterized by cystic changes in the upper lungs and subpleural scarring and fibrosis. There is pneumonia consolidation at both lung bases. Pleural spaces: Unremarkable. No pneumothorax. No pleural effusion. Heart: The heart is normal size with coronary artery and valvular calcifications. Lymph nodes: Unremarkable. No enlarged lymph nodes. Bones/joints: There is an old healed right rib fracture Soft tissues: Unremarkable. CT/CT angio chest PE protcl [id number] IMPRESSION: Emphysema with superimposed pneumonia consolidation at the lung bases. Severe atherosclerosis. COMMENTS: The presence of pulmonary emphysema on CT is an independent risk factor for lung cancer. In the absence of a history or active diagnosis of lung cancer, it is recommended that this patient with emphysema be evaluated for enrollment in a low dose CT lung cancer screening program.
[2024-05-17 23:38] VITALS: BP 135/80; PULSE 99; RESP 24; O2SAT 100
--- NOTE | 2024-05-17 23:39 | PM.HP ---
Providers/Chief Complaint Primary Care Provider: James Eckert MD Chief Complaint: SOB History of Present Illness Joceline Underwood is a 69 year old female who was sent to [facility] for bilateral pneumothorax, COPD, quit smoking 6 weeks ago, patient is stating that she spent 4 to 5 days at [facility] and she was discharged home without oxygen, presenting today with chief complaint of shortness of breath. She is not endorsing productive cough, fever, diarrhea or chest pain. No recent significant sputum production. Patient ER was in A-fib RVR heart rate 170s which improved with Cardizem, currently she is in sinus rhythm at the time of evaluation and she is on 3 L of oxygen which has been weaned down from 15 L nonrebreather mask. Patient is not complaining of any active chest pain, troponin with delta of 44, high BNP I have requested CTA chest to rule out PE, D-dimer is 4.8, patient is not on any anticoagulating agent has history of PE in the past, patient is stating that she lives with her sons, does not use oxygen on daily basis, has been leading a sedentary lifestyle since her discharge from [facility]. She does have chronic hyponatremia. Lactic acid secondary to increased work of breathing and possible pneumonia, patient had received septic bolus in the ER, respiratory panel is pending, Review of Systems Const: Denies: fever(s) Eyes: Denies: change in vision ENMT: Denies: throat pain Card: Reports: palpitations; Denies: chest pain Resp: Reports: dyspnea GI: Denies: abdominal pain : Denies: flank pain Medications/Allergies Home Medications Medication Instructions Recorded Confirmed Last Taken Type albuterol sulfate 90 mcg/actuation 1 inh inhalation Q4H PRN shortness 10/26/23 04/30/24 04/29/24 Rx aerosol inhaler of breath or wheezing #8.5 grams ipratropium bromide 17 2 puff inhalation Q8H #12.9 grams 10/26/23 04/30/24 04/29/24 Rx mcg/actuation HFA aerosol inhaler (Atrovent HFA) montelukast 10 mg tablet 10 mg PO DAILY #30 tabs 10/26/23 04/30/24 04/29/24 Rx umeclidinium 62.5 mcg/actuation 1 inh inhalation DAILY copd #30 ea 10/26/23 04/30/2404/29/24 Rx blister powder for inhalation (Incruse Ellipta) acetaminophen 325 mg tablet 650 mg PO QID PRN Pain 04/30/24 04/30/24 04/29/24 21:00 History (Tylenol) Allergies Allergy/AdvReac Type Severity Reaction Status Date / Time codeine AdvReac Mild ADR-Vomitin Verified 04/30/24 07:22 g PFSH Acute PFSH: Medical History Posterior chest pain Elevated hemoglobin A1c Pulmonary fibrosis Hyponatremia syndrome Smoker Cachexia associated with pulmonary fibrosis History of alcohol abuse End stage chronic obstructive pulmonary disease Hx of pulmonary embolus Occlusion of superior mesenteric artery Low back pain Depression COPD (chronic obstructive pulmonary disease) Surgical History Postoperative state History of tonsillectomy History of tubal ligation History of appendectomy Social History Smoking and tobacco/nicotine status: current some day tobacco/nicotine user Quit status (tobacco/nicotine): has tried quititng Alcohol intake: current Alcohol intake frequency: few times a month Alcohol type: beer Substance/Drug Use: never Vitals/I&O/Wt Last Vital Signs Temp 98.2 F 05/17/24 20:00 Pulse 99 05/17/24 23:38 Resp 24 H 05/17/24 23:38 BP 135/80 05/17/24 23:38 Pulse Ox 100 05/17/24 23:38 O2 Del Method Non-Rebreather 05/17/24 20:00 O2 Flow Rate 15 05/17/24 20:00 FiO2 45 05/17/24 20:21 05/17/24 05/17/24 05/18/24 14:59 22:59 06:59 Intake Total 1732.65 / 1732.65 Balance 1732.65 / 1732.65 Weight last 48 hrs Weight 47.627 kg Physical Exam Narrative: Patient at the time of evaluation is not complaining active chest pain Bilateral rhonchi Currently on 2 L nasal cannula No active chest pain Sinus rhythm heart rate is in 90-100 range Abdomen soft No active focal deficit Cachexia Malnourishment Sarcopenia Cushingoid appearance Facial flushing noticed No encephalopathy, urine output to be monitored, no skin mottling Data 05/17/24 20:00 05/17/24 20:00 Micro: Microbiology 05/17/24 20:48 Blood Culture - Preliminary Blood SPECIMEN COLLECTED 05/17/24 20:48 Blood Culture - Preliminary Blood SPECIMEN COLLECTED A&P Assessment and plan (1) History of alcohol abuse: (2) Hyponatremia syndrome: (3) Low back pain: Qualifiers: Chronicity: chronic Back pain laterality: bilateral Sciatica presence: without sciatica Qualified Code(s): M54.50 - Low back pain, unspecified; G89.29 - Other chronic pain (4) End stage chronic obstructive pulmonary disease: (5) Cachexia associated with pulmonary fibrosis: (6) Smoker: (7) Sepsis: (8) Pneumonia: (9) Hypoxia: (10) Atrial fib/flutter, transient: Plan Sepsis related pneumonia Had received septic bolus Source seems to be pneumonia CT chest requested Due to recent hospitalization will add dual antipseudomonal coverage Zosyn and cefepime Add Xopenex Please note procalcitonin is unremarkable My suspicion is related to pulmonary changes with underlying pulmonary fibrosis, will follow-up with CT scan report Acute hypoxia with underlying COPD with cachexia and malnourishment with concern related to end-stage Patient does not have good insight to her COPD Stating that she has recently quit smoking Does not use oxygen on regular basis Currently requiring 3 L Rule out thromboembolic disease Elevated troponin no active chest pain, will request echo Will keep her on therapeutic Lovenox until thromboembolic disease has been ruled out patient is leading a sedentary lifestyle Patient is full code Cardiac diet Sarcopenia protein calorie malnourishment will consult dietitian as well Moderate protein calorie malnourishment Patient lives with her son stating that in case she is not able to make decisions her daughter should be contacted Attestations Medical Necessity Statement*: More than 2 midnights anticipated Diagnoses History of alcohol abuse F10.11 Hyponatremia syndrome E87.1 Chronic bilateral low back pain without sciatica M54.50; G89.29 Chronicity: chronic Back pain laterality: bilateral Sciatica presence: without sciatica End stage chronic obstructive pulmonary disease J44.9 Cachexia associated with pulmonary fibrosis J84.10; R64 Smoker F17.200 Sepsis A41.9 Pneumonia J18.9 Hypoxia R09.02 Atrial fib/flutter, transient I48.91; I48.92
[2024-05-17 23:54] LABS: D Dimer 4.89 ug/mLFEU (0-0.59)
[2024-05-17 23:58] LABS: Procalcitonin 0.31 ng/mL (0-0.5)
[2024-05-18] VITALS (18 sets, daily range): BP systolic 101–128; BP diastolic 63–74; PULSE 73–104; RESP 16–24; TEMP 36.3–36.7; O2SAT 91–98
[2024-05-18 01:34] LABS: Adenovirus Not Detected (NOT DETECT); Chlamydia Pneumoniae Not Detected (NOT DETECT); Coronavirus 229E,HKU1,NL63,OC4 Not Detected (NOT DETECT); Human Metapneumovirus Not Detected (NOT DETECT); Human Rhinovirus/Enterovirus Detected (NOT DETECT); Influenza A Not Detected (NOT DETECT); Influenza A H1 Not Detected (NOT DETECT); Influenza A H1-2009 Not Detected (NOT DETECT); Influenza A H3 Not Detected (NOT DETECT); Influenza B Not Detected (NOT DETECT); Mycoplasma Pneumoniae Not Detected (NOT DETECT); Parainfluenza Virus Type 1 Not Detected (NOT DETECT); Parainfluenza Virus Type 2 Not Detected (NOT DETECT); Parainfluenza Virus Type 3 Not Detected (NOT DETECT); Parainfluenza Virus Type 4 Not Detected (NOT DETECT); Respiratory Syncytial Virus A Not Detected (NOT DETECT); Respiratory Syncytial Virus B Not Detected (NOT DETECT); SARS-COV-2 Not Detected (NOT DETECT)
--- NOTE | 2024-05-18 02:08 | ECG_ITS ---
[facility] Test Date: 2024-05-18 Pat Name: Joceline Underwood Department: Room: 271 Gender: Female Price Lister: : 1955 Requested By: Stanley Bee Order Number: [id number] Jovan MD: Georgia Dang M.D. Measurements Intervals [place] Rate: 94 P: 76 MO: 166 QRS: 53 QRSD: 147 T: 106 QT: 429 QTc: 539 Interpretive Statements SINUS RHYTHM WITH FREQUENT SUPRAVENTRICULAR PREMATURE COMPLEXES LEFT BUNDLE BRANCH BLOCK [120+ ms QRS DURATION, 80+ ms Q/S IN V1/V2, 85+ ms R IN I/aVL/V5/V6] Compared to ECG 05/17/2024 20:08:19 Left bundle-branch block now present Intraventricular conduction delay no longer present Electronically Signed On 05-18-2024 13:35:26 NURSING TEACHER by Georgia Dang M.D. [id number]
[2024-05-18] MEDS: iohexol 350 mg/mL 500 mL Btl (per mL) IV (02:22)
--- NOTE | 2024-05-18 02:23 | USCV_ITS ---
Joceline Underwood Age: 69 Gender: F : 1955 Exam Date: 05/18/2024 16:40 Ordering Phys: Lev Lanier MD Technologist: Gilles Ball Exam Location: [facility] [place] Indication: nstemi BP: 123 / 63 HR: 89 Rhythm: Sinus Technical Quality: Adequate MEASUREMENTS (Male / Female) Normal Values 2D ECHO LVOT Diameter 2.1 cm LV Ejection Fraction MOD 4C 48.7 % LV Ejection Fraction MOD 2C 61.4 % LV Ejection Fraction 2C AL 61.5 % LA Diameter 3.2 cm RA Systolic Volume 4C AL 14.6 ml RA Systolic Volume 4C MOD 14.9 ml LA Sys Volume AL 28.9 cm cubed LA Sys Volume Index AL 20.6 cm cubed/m squared Aorta at Sinotubular Diameter 1.9 cm IVC Diameter 1.2 cm M-MODE LA Ao Ratio MM 1.4 AV Cusp Separation MM 1.3 cm DOPPLER AV Peak Velocity 112.7 cm/s LVOT Peak Velocity 117.0 cm/s AV Area Cont Eq vti 3.1 cm squared AV Area Cont Eq pk 3.7 cm squared MV Peak Velocity 114.0 cm/s MV Area PHT 7.3 cm squared Mitral E to A Ratio 0.6 TR Peak Velocity 285.0 cm/s TR Peak Gradient 32.5 mmHg TR Mean Velocity 241.0 cm/s TR Mean Gradient 24.3 mmHg TR Velocity Time Integral 85.7 cm FINDINGS Left Ventricle Normal LV size with an ejection fraction of 50 to 55% %. Moderate hypokinesis of the mid and apical septum and the anteroseptal segments.Grade I/IV diastolic dysfunction (abnormal relaxation filling pattern), normal to mildly elevated filling pressures. Right Ventricle The right ventricle is normal in size and function. Right Atrium The right atrium is normal in size. Left Atrium The left atrium is normal in size. Mitral Valve Mild mitral annular calcification. Aortic Valve Thickened aortic valve. Tricuspid Valve No gross abnormalities noted Pulmonic Valve No gross abnormalities noted Pericardium Normal pericardium without effusion. Aorta Normal ascending aorta dimension. IVC Normal inferior vena cava. CONCLUSIONS Normal LV size with an ejection fraction of 50 to 55% %. Moderate hypokinesis of the mid and apical septum and the anteroseptal segments.Grade I/IV diastolic dysfunction (abnormal relaxation filling pattern), normal to mildly elevated filling pressures. Mild mitral annular calcification. Thickened aortic valve. There is no pericardial effusion. There are no intracardiac masses. Dr Georgia Dang MD [facility] (Electronically Signed) Final Date: 18 May 2024 21:17 S
[2024-05-18 02:32] LABS: Troponin 5 6HR 59.22 ng/L (0-10)
[2024-05-18 02:57] LABS: Troponin 5 6HR Delta 43.22 ng/L (0-12)
[2024-05-18] MEDS: piperacillin-tazobactam 3.375 GM in sodium chloride 0.9% (plus) 50 ML IV ×3 (03:01→20:03)
[2024-05-18] MEDS: cefepime 2,000 mg SDV 2000 MG IVP ×2 (03:01→16:18)
[2024-05-18] MEDS: dilTIAZem ER (12HR) 60 mg Capsule PO ×3 (03:01→17:50)
[2024-05-18] MEDS: levalbuterol 1.25 mg/3 mL Neb INHALATION ×5 (04:23→20:25)
[2024-05-18 06:23] LABS: Basophils % 0.3 %; Hematocrit 38.8 % (36-47); Lymphocytes # 0.3 10^3/uL (0.8-4.8); Lymphocytes % 2.4 %; Mean Corpuscular HGB Conc 34.3 g/dL (30-55); Mean Corpuscular Hemoglobin 33.8 pg (27-33); Mean Corpuscular Volume 98.5 fl (85-98); Mean Platelet Volume 9.8 fL (7.4-10.4); Monocytes # 0.2 10^3/uL (0.2-0.9); Monocytes % 1.4 %; Neutrophils # 11.83 10^3/uL (1.8-7.7); Neutrophils % 95.3 %; Nucleated Red Blood Cells % 0 %; Platelet Count 340 10^3/cmm (157-399); Red Blood Count 3.94 10^6/uL (3.85-5.65); Red Cell Distribution Width 12.5 % (12.1-15.1); White Blood Count 12.43 10^3/uL (3.29-11.43)
[2024-05-18 06:40] LABS: C Reactive Protein 265.1 mg/L (0.0-4.9); Magnesium 1.8 mg/dL (1.7-2.3)
[2024-05-18 06:41] LABS: Blood Urea Nitrogen 8 mg/dL (8-23); Calcium 7.9 mg/dL (8.5-10.5); Carbon Dioxide 23 mmol/L (22-29); Chloride 88 mmol/L (98-107); Creatinine Clr Calc Pharmacy 43.4153; Glucose 203 mg/dL (65-115); Osmolality Calculated 278 mOsm/kg (285-295); Sodium 132 mmol/L (136-145)
[2024-05-18] MEDS: budesonide 0.5 mg/2 mL Neb INHALATION ×2 (07:35→20:26)
[2024-05-18] MEDS: pantoprazole 40 mg SDV IVP ×2 (09:59→17:50)
[2024-05-18] MEDS: montelukast sodium 10 mg Tablet PO (09:59)
--- NOTE | 2024-05-18 14:03 | P.PN_ITS ---
Subjective 2 Subjective: Seen this morning. States she is starting to feel better. Shortness of breath is improved. Is going to liter nasal cannula. Is not on any oxygen at home. Patient is positive for Enterra rhinovirus. Lactic acid has normalized. Vitals/I&O/Wt Last Vital Signs Temp 97.4 F L 05/18/24 11:45 Pulse 78 05/18/24 11:45 Resp 18 05/18/24 11:45 BP 123/63 05/18/24 11:45 Pulse Ox 94 05/18/24 11:45 O2 Del Method Nasal Cannula 05/18/24 11:19 O2 Flow Rate 2 05/18/24 11:19 FiO2 45 05/17/24 20:21 05/17/24 05/18/24 05/18/24 22:59 06:59 14:59 Intake Total 1732.65 / 1732.65 1250 / 2982.65 290 / 290 Balance 1732.65 / 1732.65 1250 / 2982.65 290 / 290 Weight last 48 hrs Weight 42.638 kg Weight 42.326 kg Weight 47.627 kg Physical Exam 2 Narrative: Patient at the time of evaluation is not complaining active chest pain Bilateral rhonchi Currently on 2 L nasal cannula No active chest pain Sinus rhythm heart rate is in 90-100 range Abdomen soft No active focal deficit Cachexia Malnourishment Sarcopenia Cushingoid appearance Facial flushing noticed No encephalopathy, urine output to be monitored, no skin mottling Data 05/18/24 05:56 05/18/24 05:56 Micro: Microbiology 05/17/24 20:48 Blood Culture - Preliminary Blood SPECIMEN COLLECTED 05/17/24 20:48 Blood Culture - Preliminary Blood SPECIMEN COLLECTED A&P Assessment and plan (1) History of alcohol abuse: (2) Hyponatremia syndrome: (3) Low back pain: Qualifiers: Chronicity: chronic Back pain laterality: bilateral Sciatica presence: without sciatica Qualified Code(s): M54.50 - Low back pain, unspecified; G89.29 - Other chronic pain (4) End stage chronic obstructive pulmonary disease: (5) Cachexia associated with pulmonary fibrosis: (6) Smoker: (7) Sepsis: (8) Pneumonia: (9) Hypoxia: (10) Atrial fib/flutter, transient: Plan Sepsis related pneumonia Had received septic bolus Source seems to be pneumonia CT chest requested Due to recent hospitalization will add dual antipseudomonal coverage Zosyn and cefepime Add Xopenex Please note procalcitonin is unremarkable My suspicion is related to pulmonary changes with underlying pulmonary fibrosis, will follow-up with CT scan report Acute hypoxia with underlying COPD with cachexia and malnourishment with concern related to end-stage Patient does not have good insight to her COPD Stating that she has recently quit smoking Does not use oxygen on regular basis Currently requiring 3 L Rule out thromboembolic disease Elevated troponin no active chest pain, will request echo Will keep her on therapeutic Lovenox until thromboembolic disease has been ruled out patient is leading a sedentary lifestyle Patient is full code Cardiac diet Sarcopenia protein calorie malnourishment will consult dietitian as well Moderate protein calorie malnourishment Patient lives with her son stating that in case she is not able to make decisions her daughter should be contacted 05/18/2024 -CTA chest reviewed.Emphysema with superimposed pneumonia consolidation at the lung bases. Severe atherosclerosis. -Patient currently requiring oxygen. Down to 2 L. He is not on any oxygen at home ? Continue on IV antibiotics at this time. ? Continue Zosyn and cefepime for dual pseudomonal coverage ? Patient is positive for enterorhino virus. ? Add Solu-Medrol 40 IV twice daily ? CTA ruled out pulmonary embolism ? NSTEMI: Delta troponin at 6 hours positive at 43.22. Most likely demand ischemia secondary to metabolic cause however coronary disease cannot be ruled out. Will check echocardiogram to rule out wall motion abnormalities ? Continue on therapeutic Lovenox for now. ? Check venous Dopplers ? Hypokalemia potassium 3.0.?Order potassium 40 oral x 1 ? Patient require rather 48 hours of hospitalization for above medical issues. Attestations 2 Medical Necessity Statement*: More than 2 midnights anticipated Diagnoses History of alcohol abuse F10.11 Hyponatremia syndrome E87.1 Chronic bilateral low back pain without sciatica M54.50; G89.29 Chronicity: chronic Back pain laterality: bilateral Sciatica presence: without sciatica End stage chronic obstructive pulmonary disease J44.9 Cachexia associated with pulmonary fibrosis J84.10; R64 Smoker F17.200 Sepsis A41.9 Pneumonia J18.9 Hypoxia R09.02 Atrial fib/flutter, transient I48.91; I48.92
[2024-05-18] MEDS: potassium chloride ER 20 mEq Tablet 40 MEQ PO (14:32)
[2024-05-18] MEDS: methylPREDNISolone sod succ 40 mg/mL INJ IVP (17:50)
[2024-05-19] VITALS (16 sets, daily range): BP systolic 114–158; BP diastolic 62–73; PULSE 80–98; RESP 16–20; TEMP 36.4–36.7; O2SAT 87–98
[2024-05-19] MEDS: levalbuterol 1.25 mg/3 mL Neb INHALATION ×6 (00:21→20:38)
[2024-05-19] MEDS: piperacillin-tazobactam 3.375 GM in sodium chloride 0.9% (plus) 50 ML IV ×2 (03:11→15:13)
[2024-05-19] MEDS: cefepime 2,000 mg SDV 2000 MG IVP ×2 (03:11→15:13)
[2024-05-19] MEDS: methylPREDNISolone sod succ 40 mg/mL INJ IVP ×2 (05:57→18:46)
[2024-05-19 07:49] LABS: Basophils % 0.2 %; Hematocrit 36.7 % (36-47); Lymphocytes # 0.7 10^3/uL (0.8-4.8); Lymphocytes % 6.7 %; Mean Corpuscular HGB Conc 34.1 g/dL (30-55); Mean Corpuscular Hemoglobin 34.1 pg (27-33); Mean Platelet Volume 9.3 fL (7.4-10.4); Monocytes # 0.5 10^3/uL (0.2-0.9); Monocytes % 5.5 %; Neutrophils # 8.53 10^3/uL (1.8-7.7); Nucleated Red Blood Cells % 0 %; Platelet Count 312 10^3/cmm (157-399); Red Blood Count 3.67 10^6/uL (3.85-5.65); Red Cell Distribution Width 12.5 % (12.1-15.1); White Blood Count 9.81 10^3/uL (3.29-11.43)
[2024-05-19] MEDS: budesonide 0.5 mg/2 mL Neb INHALATION ×2 (08:07→20:39)
[2024-05-19 08:11] LABS: Alanine Aminotransferase 8 U/L (0-33); Albumin Level 2.7 g/dL (3.5-5.2); Alkaline Phosphatase 109 U/L (35-105); Anion Gap 11.6 (5-19); Aspartate Amino Transferase 14 U/L (0-32); Blood Urea Nitrogen 8 mg/dL (8-23); Calcium 8.5 mg/dL (8.5-10.5); Carbon Dioxide 30 mmol/L (22-29); Chloride 93 mmol/L (98-107); Creatinine Clr Calc Pharmacy 44.0618; Globulin 2.9 g/dL (1.3-4.6); Glucose 132 mg/dL (65-115); Magnesium 1.9 mg/dL (1.7-2.3); Osmolality Calculated 272 mOsm/kg (285-295); Potassium 3.6 mmol/L (3.5-5.1); Sodium 131 mmol/L (136-145); Total Bilirubin 0.3 mg/dL (0.15-1.2); Total Protein 5.6 g/dL (6.6-8.7)
[2024-05-19] MEDS: montelukast sodium 10 mg Tablet PO (09:13)
[2024-05-19] MEDS: pantoprazole 40 mg SDV IVP (09:13)
[2024-05-19] MEDS: dilTIAZem ER (12HR) 60 mg Capsule PO ×2 (09:13→18:46)
--- NOTE | 2024-05-19 09:23 | PC.CHAP ---
Pastoral Care Encounter/Spiritual Assessment Type of Contact [] Declined barrel leveler visit [] Patient/Family/Request visit [] Outpatient visit [] Follow-up visit [] Physician referral [] Code/Alert [x] Routine visit [] Staff referral [] Actively dying [] Patient sleeping [] Family support [] [] Out of room [] Palliative care [] [] Receiving care in room [] Pre-surgical visit [] Trauma [] Long length of stay [] ICU visit [] Other: Relational/Emotional Strength [] Patient feels connected with others/family/visitors/staff [] Distress [] Loneliness/isolation [] Abandonment Spirituality of Patient [] Person of Padmaja [] Attends Restorationist of their Padmaja [] Believes in Prayer [] Reads Bible or Rastafari materials [] There are Spiritual issues to be addressed Operations Professional Interventions [x] Prayer [] Active listening [] Non-anxious presence [] Spiritual/emotional support [] Crisis/trauma care [] Spiritual counseling [] Bereavement support [] Provided bereavement packet [] Provided Bible/devotional materials [] Provided toy/stuffed animal, coloring book to patient or family member [] Provided Communion [] Anointing/[place] [] Salvation [] Completed spiritual assessment [] Other: Impact on Illness or Injury [] Angry [] Fearful [] Anxious [] Often cries [] Exhaustion [] Unable to work [] Unable to attend voodoo [] Unable to walk/stand [] Unable to read [] Unable to drive [] Unable to eat/drink [] Unable to sleep [] Unable to be with family [] Patient intubated [] Other: Summary precaution Time spent with patient
--- NOTE | 2024-05-19 16:20 | ECG_ITS ---
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 Interpretive Statements Lung unchanged pre/post procedure; Intraprocedure shortess of breath; Symptoms resoled by disPROCEDURE: At the baseline, the EKG revealed normal sinus rhythm with a left bundle branch block pattern. Heart rate of 71 bpm.. The baseline heart was 89 bpm with a blood pressue of 158/80 mm of Hg Lexiscan was infused over a period of 20 seconds. A total of 0.4 milligrams of Lexiscan was infused. The stress phase was continued for a total of 5 minutes. Heart rate at the end of the stress phase was 101 bpm with a blood pressure 150/76 mm of Hg. The EKG at the peak infusion revealed no significant changes. Sestamibi was injected 20 seconds after the Lexiscan infusion. Heart rate at the end of the recovery phase was 100 bpm with a blood pressure of 153/75 mm of Hg. CONCLUSION: 1. The EKG response to Lexiscan infusion is uninterpretable due to the baseline left bundle branch block 2. No LexiScan induced chest pain or cardiac arrhythmia 3. Normal blood pressure and heart rate response 4. Sestamibi/sestamibi perfusion scan pending; see separate report.charge Electronically Signed On 05-22-2024 18:35:37 OSTEOPATHIC NEUROLOGIST by Georgia Dang M.D. [email or web address]
--- NOTE | 2024-05-19 16:55 | P.PN_ITS ---
Subjective 2 Subjective: Leukocytosis resolved. Hemodynamically stable. Saturating 89 to 91%. Medications: Reviewed: Yes Vitals/I&O/Wt Last Vital Signs Temp 97.5 F L 05/19/24 16:00 Pulse 84 05/19/24 16:00 Resp 18 05/19/24 16:00 BP 137/66 05/19/24 16:00 Pulse Ox 91 05/19/24 16:00 O2 Del Method Nasal Cannula 05/19/24 16:00 O2 Flow Rate 2 05/19/24 15:54 FiO2 45 05/17/24 20:21 05/19/24 05/19/24 05/19/24 06:59 14:59 22:59 Intake Total 290 / 1040 760 / 760 Output Total 500 / 500 500 / 500 Balance -210 / 540 260 / 260 Weight last 48 hrs Weight 43.273 kg Weight 42.638 kg Weight 42.326 kg Weight 47.627 kg Physical Exam 2 Narrative: General: No acute distress, AO x3 HEENT: PERRLA, pupils bilaterally equal and reactive, pallors not present Chest: Normal vesicular breath sounds, no added sounds, equal good air entry bilaterally CVS: S1-S2 regular, no murmurs, no tachycardia, no gallops, no rubs Abdomen: Soft, nontender, no organomegaly, bowel sounds present Neuro: No focal deficits, no facial deformity, AO x3, power 5/5 in all limbs Data 05/19/24 07:37 05/19/24 07:37 Micro: Microbiology 05/17/24 20:48 Blood Culture - Preliminary Blood NEGATIVE TO DATE 05/17/24 20:48 Blood Culture - Preliminary Blood NEGATIVE TO DATE A&P Assessment and plan (1) History of alcohol abuse: (2) Hyponatremia syndrome: (3) Low back pain: Qualifiers: Chronicity: chronic Back pain laterality: bilateral Sciatica presence: without sciatica Qualified Code(s): M54.50 - Low back pain, unspecified; G89.29 - Other chronic pain (4) End stage chronic obstructive pulmonary disease: (5) Cachexia associated with pulmonary fibrosis: (6) Smoker: (7) Sepsis: (8) Pneumonia: (9) Hypoxia: (10) Atrial fib/flutter, transient: Plan Sepsis related pneumonia Had received septic bolus Source seems to be pneumonia CT chest requested Due to recent hospitalization will add dual antipseudomonal coverage Zosyn and cefepime Add Xopenex Please note procalcitonin is unremarkable My suspicion is related to pulmonary changes with underlying pulmonary fibrosis, will follow-up with CT scan report Acute hypoxia with underlying COPD with cachexia and malnourishment with concern related to end-stage Patient does not have good insight to her COPD Stating that she has recently quit smoking Does not use oxygen on regular basis Currently requiring 3 L Rule out thromboembolic disease Elevated troponin no active chest pain, will request echo Will keep her on therapeutic Lovenox until thromboembolic disease has been ruled out patient is leading a sedentary lifestyle Patient is full code Cardiac diet Sarcopenia protein calorie malnourishment will consult dietitian as well Moderate protein calorie malnourishment Patient lives with her son stating that in case she is not able to make decisions her daughter should be contacted 05/18/2024 -CTA chest reviewed.Emphysema with superimposed pneumonia consolidation at the lung bases. Severe atherosclerosis. -Patient currently requiring oxygen. Down to 2 L. He is not on any oxygen at home ? Continue on IV antibiotics at this time. ? Continue Zosyn and cefepime for dual pseudomonal coverage ? Patient is positive for enterorhino virus. ? Add Solu-Medrol 40 IV twice daily ? CTA ruled out pulmonary embolism ? NSTEMI: Delta troponin at 6 hours positive at 43.22. Most likely demand ischemia secondary to metabolic cause however coronary disease cannot be ruled out. Will check echocardiogram to rule out wall motion abnormalities ? Continue on therapeutic Lovenox for now. ? Check venous Dopplers ? Hypokalemia potassium 3.0.?Order potassium 40 oral x 1 ? Patient require rather 48 hours of hospitalization for above medical issues. May 19, 2024. Patient is hemodynamically stable. Leukocytosis is resolving. Does not need double pseudomonal coverage at this time as clinically improving. Discontinue piperacillin/tazobactam. Continue cefepime 2 g IV every 12 hours. Check MRSA PCR. Overall clinical impression that of acute viral syndrome with possibility of superadded bacterial pneumonia. Positive troponin delta at 6 hours. Echocardiogram with LVEF of 50 to 55%, moderate hypokinesia of mid and apical septum in the anteroseptal myrick. Patient denies any jarred chest pain but says she feels twinge occasionally. EKG showing LBBB, however also noted on previous EKGs from 2020. Patient states she has never had a stress test or an angiogram. No known history of coronary artery disease. Given abnormal echocardiogram with hypokinesia with regional wall motion abnormalities, will evaluate further with a Lexiscan stress test tomorrow morning. N.p.o. postmidnight for the same. Continue methylprednisolone 40 mg IV every 12 hours for now. Continue levo albuterol and budesonide nebulization. Heart rate is much better controlled now since starting Cardizem. Attestations 2 Medical Necessity Statement*: stress test tomorrow Coding Level of Care Code Acute Code for Chg Fwd Diagnoses History of alcohol abuse F10.11 Hyponatremia syndrome E87.1 Chronic bilateral low back pain without sciatica M54.50; G89.29 Chronicity: chronic Back pain laterality: bilateral Sciatica presence: without sciatica End stage chronic obstructive pulmonary disease J44.9 Cachexia associated with pulmonary fibrosis J84.10; R64 Smoker F17.200 Sepsis A41.9 Pneumonia J18.9 Hypoxia R09.02 Atrial fib/flutter, transient I48.91; I48.92
[2024-05-19] MEDS: pantoprazole DR 40 mg Tablet PO (18:46)
[2024-05-20] VITALS (10 sets, daily range): BP systolic 134–180; BP diastolic 65–91; PULSE 80–100; RESP 16–20; TEMP 36.3–36.6; O2SAT 87–94
[2024-05-20] MEDS: cefepime 2,000 mg SDV 2000 MG IVP ×2 (02:05→14:20)
[2024-05-20] MEDS: methylPREDNISolone sod succ 40 mg/mL INJ IVP ×2 (04:44→17:05)
[2024-05-20 05:36] LABS: Basophils % 0.1 %; Hematocrit 39.5 % (36-47); Lymphocytes # 0.7 10^3/uL (0.8-4.8); Lymphocytes % 7.9 %; Mean Corpuscular HGB Conc 33.9 g/dL (30-55); Mean Corpuscular Hemoglobin 32.5 pg (27-33); Mean Corpuscular Volume 95.9 fl (85-98); Mean Platelet Volume 9.2 fL (7.4-10.4); Monocytes # 0.6 10^3/uL (0.2-0.9); Neutrophils # 7.59 10^3/uL (1.8-7.7); Neutrophils % 84.1 %; Nucleated Red Blood Cells % 0 %; Platelet Count 383 10^3/cmm (157-399); Red Blood Count 4.12 10^6/uL (3.85-5.65); Red Cell Distribution Width 12.4 % (12.1-15.1); White Blood Count 9.02 10^3/uL (3.29-11.43)
[2024-05-20 06:11] LABS: Alanine Aminotransferase 11 U/L (0-33); Albumin Level 2.9 g/dL (3.5-5.2); Alkaline Phosphatase 119 U/L (35-105); Anion Gap 15.1 (5-19); Aspartate Amino Transferase 18 U/L (0-32); Blood Urea Nitrogen 8 mg/dL (8-23); Calcium 8.7 mg/dL (8.5-10.5); Carbon Dioxide 29 mmol/L (22-29); Chloride 92 mmol/L (98-107); Creatinine Clr Calc Pharmacy 44.0618; Globulin 3.1 g/dL (1.3-4.6); Glucose 115 mg/dL (65-115); Osmolality Calculated 275 mOsm/kg (285-295); Potassium 3.1 mmol/L (3.5-5.1); Sodium 133 mmol/L (136-145); Total Bilirubin 0.4 mg/dL (0.15-1.2)
[2024-05-20] MEDS: regadenoson 0.4 Mg/5 ml Syringe IVP (07:18)
[2024-05-20] MEDS: levalbuterol 1.25 mg/3 mL Neb INHALATION ×3 (08:13→15:30)
[2024-05-20] MEDS: budesonide 0.5 mg/2 mL Neb INHALATION (08:13)
[2024-05-20] MEDS: pantoprazole DR 40 mg Tablet PO ×2 (08:59→17:05)
[2024-05-20] MEDS: acetaminophen 500 mg Tablet PO (08:59)
[2024-05-20] MEDS: dilTIAZem ER (12HR) 60 mg Capsule PO ×2 (08:59→17:05)
[2024-05-20] MEDS: montelukast sodium 10 mg Tablet PO (08:59)
[2024-05-20] MEDS: potassium chloride ER 20 mEq Tablet 40 MEQ PO (09:00)
--- NOTE | 2024-05-20 15:50 | PC.NURSE ---
Discharge instructions provided to pt. NO questions or concerns voiced. Pt qualifies for 2L home oxygen. Awaiting delivery of oxygen tank prior to discharge home.
--- NOTE | 2024-05-20 16:08 | PM.DCS ---
Discharge Providers Date of Admission: 05/18/24 01:59 Date of Discharge: May 20, 2024 Attending Provider at Admission: Lev Lanier MD Attending Provider at Discharge: Marni Medina MD Primary Care Provider: James Eckert MD Diagnoses at Discharge Discharge Diagnosis (1) History of alcohol abuse: Status: Acute (2) Hyponatremia syndrome: Status: Acute (3) Low back pain: Status: Acute Qualifiers: Chronicity: chronic Back pain laterality: bilateral Sciatica presence: without sciatica Qualified Code(s): M54.50 - Low back pain, unspecified; G89.29 - Other chronic pain (4) End stage chronic obstructive pulmonary disease: Status: Acute (5) Cachexia associated with pulmonary fibrosis: Status: Acute (6) Smoker: Status: Acute (7) Sepsis: Status: Acute (8) Pneumonia: Status: Acute (9) Hypoxia: Status: Acute (10) Atrial fib/flutter, transient: Status: Acute (11) Rhinovirus infection: Status: Acute Reason for Visit Reason for Visit: SOB Hospital Course Hospital Course 69-year-old lady with a known history of pulmonary fibrosis, cachexia, end-stage COPD, recent diagnosis of pneumothorax in April 2024 which required admission and chest tubes at [place]. She presented to the emergency room on May 17, 2024 complaining of severe shortness of breath. She was noted to be tachycardiac, A-fib with RVR with heart rate 160s upon arrival. She received diltiazem bolus and was started on Cardizem 60 mg p.o. twice daily which she is currently tolerating. Her heart rate has been well-controlled during the course of her admission. She was noted to be hypoxic. States that she was able to be weaned off at the end of her admission in April, however was noted to be hypoxic again. She was requiring 2 to 3 L/min supplemental O2. CT of the chest showed no PE. There was diffuse emphysema with consolidation at bilateral lung bases. She tested positive for rhinovirus. Overall clinical impression that of COPD exacerbation triggered by acute viral infection. She did received supportive management, IV steroids, [id number] nebulization. Since possibility of superadded bacterial infection cannot be excluded she received an empiric course of IV antibiotics. Blood cultures remain negative. Sputum cultures were unable to be collected. She improved with the above interventions. Echocardiogram was obtained due to new onset A-fib which showed an LVEF of 50 to 55% and moderate hypokinesia of the mid and apical septum and anteroseptal segments. She does not have a known history of coronary artery disease. With the abnormal echocardiogram she underwent a cardiac stress test today. Results were discussed with Dr. Dang, no signs of reversible ischemia, possibly areas of old scarring. She has been started on Cardizem 60 mg twice daily for rate control and also started on anticoagulation with Eliquis 5 mg twice daily. Of note patient also has a history of PE in the past several years ago. It appears this was an unprovoked episode at the time. Recommended to watch for any signs of bleeding. She is feeling better at Time of discharge today. Recommended to continue levofloxacin for additional 3 days, a steroid taper for acute COPD exacerbation and continue her inhalers. Follow-up with primary care physician within 7 to 10 days of discharge Physical Exam Narrative: General: No acute distress, AO x3, chronically ill-appearing cachectic lady in no acute distress at this time HEENT: PERRLA, pupils bilaterally equal and reactive, pallors not present Chest: Normal vesicular breath sounds, no added sounds, equal good air entry bilaterally CVS: S1-S2 regular, no murmurs, no tachycardia, no gallops, no rubs Abdomen: Soft, nontender, no organomegaly, bowel sounds present Neuro: No focal deficits, no facial deformity, AO x3, power 5/5 in all limbs Discharge Data Studies Completed and Pending Completed Studies During Hospitalization Category Date Time Status CTA chest [CT angio chest PE protcl [id number]] Stat Cat Scan 05/17/24 23:37 Completed Cardiac Stress Test MIBI [Sestamibi Stress Test Request Exams 05/19/24 16:20 Draft ] Routine XR chest 1V portable [id number] Stat Exams 05/17/24 20:04 Completed NM christina perf SPECT r/s* [id number] Routine Nuc Med 05/20/24 16:20 Completed CV. echo complete* [id number] Routine Ultrasound 05/18/24 02:23 Completed Pending at discharge Category Date Time Status Blood Culture Stat Lab 05/17/24 20:48 Results CMP [Comprehensive Metabolic Panel] AM LABS Lab 05/21/24 04:00 Ordered Complete Blood Count w/Auto AM LABS Lab 05/21/24 04:00 Ordered MRSA PCR OZH (swab) Stat Lab 05/19/24 16:58 Ordered Sputum Culture and Gram Stain Stat Lab 05/17/24 23:34 Uncollected Radiology Impressions Chest X-Ray 05/17/24 20:04 IMPRESSION: Trace residual left apical pneumothorax. No right pneumothorax is seen. Emphysema with increased reticular markings at the lung bases which may be scarring versus pneumonia. Chest CTA 05/17/24 23:37 IMPRESSION: Emphysema with superimposed pneumonia consolidation at the lung bases. Severe atherosclerosis. COMMENTS: The presence of pulmonary emphysema on CT is an independent risk factor for lung cancer. In the absence of a history or active diagnosis of lung cancer, it is recommended that this patient with emphysema be evaluated for enrollment in a low dose CT lung cancer screening program. Laboratory Results WBC 9.02 10^3/uL (3.29-11.43) 05/20/24 05:13 Corrected WBC Cancelled 05/19/24 03:25 RBC 4.12 10^6/uL (3.85-5.65) 05/20/24 05:13 Hgb 13.40 g/dL (11.27-16.99) 05/20/24 05:13 Hct 39.5 % (36-47) 05/20/24 05:13 MCV 95.9 fl (85-98) 05/20/24 05:13 MCH 32.5 pg (27-33) 05/20/24 05:13 MCHC 33.9 g/dL (30-55) 05/20/24 05:13 RDW 12.4 % (12.1-15.1) 05/20/24 05:13 Plt Count 383 10^3/cmm (157-399) 05/20/24 05:13 MPV 9.2 fL (7.4-10.4) 05/20/24 05:13 Gran % Cancelled 05/19/24 03:25 Neut % (Auto) 84.1 % 05/20/24 05:13 Lymph % (Auto) 7.9 % 05/20/24 05:13 [place] % (Auto) 7.0 % 05/20/24 05:13 Eos % (Auto) 0.0 % 05/20/24 05:13 Baso % (Auto) 0.1 % 05/20/24 05:13 Neut # (Auto) 7.59 10^3/uL (1.8-7.7) 05/20/24 05:13 Lymph # (Auto) 0.7 10^3/uL (0.8-4.8) L 05/20/24 05:13 [place] # (Auto) 0.6 10^3/uL (0.2-0.9) 05/20/24 05:13 Eos # (Auto) 0.0 10^3/uL (0.0-0.8) 05/20/24 05:13 Baso # (Auto) 0.0 10^3/uL (0.0-0.1) 05/20/24 05:13 Absolute Gran (auto) Cancelled 05/19/24 03:25 Nucleated RBC % (auto) 0 % 05/20/24 05:13 Nucleated RBCs # 0.0 /100WBC 05/20/24 05:13 D-Dimer 4.89 ug/mLFEU (0-0.59) H 05/17/24 20:00 Specimen Type Arterial 05/17/24 20:10 Sample Site Brachial, right 05/17/24 20:10 ABG pH 7.44 (7.35-7.45) 05/17/24 20:10 ABG pCO2 35.8 mmHg (35-45) 05/17/24 20:10 ABG pO2 100.0 mmHg (80.0-100.0) 05/17/24 20:10 ABG HCO3 24.3 mmol/L (22-26) 05/17/24 20:10 ABG Base Excess 0.6 mmol/L (-2.0-2.0) 05/17/24 20:10 Glen Test N/a 05/17/24 20:10 Hematocrit 48.5 % (37-47) H 05/17/24 20:10 O2 Delivery Device Nrb 05/17/24 20:10 O2 Liters/Min 15.0 % 05/17/24 20:10 Polish Maker ID [email or web address] 05/17/24 20:10 Sodium 133 mmol/L (136-145) L 05/20/24 05:13 Potassium 3.1 mmol/L (3.5-5.1) L 05/20/24 05:13 Chloride 92 mmol/L (98-107) L 05/20/24 05:13 Carbon Dioxide 29 mmol/L (22-29) 05/20/24 05:13 Anion Gap 15.1 (5-19) 05/20/24 05:13 BUN 8 mg/dL (8-23) 05/20/24 05:13 Creatinine 0.3 mg/dL (0.5-0.9) L 05/20/24 05:13 GFR Calculation Not Reportable 05/20/24 05:13 Glucose 115 mg/dL (65-115) 05/20/24 05:13 Calculated Osmolality 275 mOsm/kg (285-295) L 05/20/24 05:13 Lactic Acid 6.7 mmol/L (0.5-2.2) H* 05/17/24 20:00 Lactic Acid (Sepsis) 2.1 mmol/L (0.5-2.2) 05/17/24 22:09 Calcium 8.7 mg/dL (8.5-10.5) 05/20/24 05:13 Magnesium 1.9 mg/dL (1.7-2.3) 05/19/24 07:37 Total Bilirubin 0.4 mg/dL (0.15-1.2) 05/20/24 05:13 AST 18 U/L (0-32) 05/20/24 05:13 ALT 11 U/L (0-33) 05/20/24 05:13 Alkaline Phosphatase 119 U/L (35-105) H 05/20/24 05:13 Troponin T Baseline 16 ng/L (0-10) H 05/17/24 20:00 Troponin T 120 Minute 60.21 ng/L (0-10) H 05/17/24 22:09 Delta Troponin T 44.21 ABS# (0-10) H* 05/17/24 22:09 Troponin T Hi Sens 6Hr 59.22 ng/L (0-10) H 05/18/24 01:59 Troponin T Hi Sens 6Hr Delta 43.22 ng/L (0-12) H* 05/18/24 01:59 C-Reactive Protein 265.1 mg/L (0.0-4.9) H 05/18/24 05:56 NT-Pro-B Natriuret Pep 2964 pg/mL (0-125) H 05/17/24 20:00 Total Protein 6.0 g/dL (6.6-8.7) L 05/20/24 05:13 Albumin 2.9 g/dL (3.5-5.2) L 05/20/24 05:13 Globulin 3.1 g/dL (1.3-4.6) 05/20/24 05:13 Procalcitonin 0.31 ng/mL (0-0.5) 05/17/24 20:00 Adenovirus (PCR) Not detected (NOT DETECT) 05/17/24 23:40 C. pneumoniae DNA (PCR) Not detected (NOT DETECT) 05/17/24 23:40 Coronavirus 229E (PCR) Not detected (NOT DETECT) 05/17/24 23:40 Human Metapneumovir PCR Not detected (NOT DETECT) 05/17/24 23:40 Influenza A (H1) PCR Not detected (NOT DETECT) 05/17/24 23:40 Influ A (H1/09) PCR Not detected (NOT DETECT) 05/17/24 23:40 Influenza A (H3) PCR Not detected (NOT DETECT) 05/17/24 23:40 Influenza Type A (PCR) Not detected (NOT DETECT) 05/17/24 23:40 Influenza Type B (PCR) Not detected (NOT DETECT) 05/17/24 23:40 M. pneumoniae (PCR) Not detected (NOT DETECT) 05/17/24 23:40 Parainfluenza 1 (PCR) Not detected (NOT DETECT) 05/17/24 23:40 Parainfluenza 2 (PCR) Not detected (NOT DETECT) 05/17/24 23:40 Parainfluenza 3 (PCR) Not detected (NOT DETECT) 05/17/24 23:40 Parainfluenza 4 (PCR) Not detected (NOT DETECT) 05/17/24 23:40 RSV Type A (PCR) Not detected (NOT DETECT) 05/17/24 23:40 RSV Type B (PCR) Not detected (NOT DETECT) 05/17/24 23:40 Entero/Rhino (PCR) Detected (NOT DETECT) A 05/17/24 23:40 SARS-CoV-2 (PCR) Not detected (NOT DETECT) 05/17/24 23:40 Vitals Last Vital Signs Temp 97.4 F L 05/20/24 12:00 Pulse 92 05/20/24 15:34 Resp 18 05/20/24 15:34 BP 155/73 05/20/24 12:00 Pulse Ox 87 L 05/20/24 15:39 O2 Del Method Room Air 05/20/24 15:34 O2 Flow Rate 2 05/20/24 15:39 FiO2 45 05/17/24 20:21 Discharge Plan Discharge Patient Disposition: Home Condition: Stable Prescriptions: New diltiazem HCl 60 mg Capsule,Extended Release 12 Hr 60 mg PO BID 30 Days Qty: 60 0RF Eliquis 5 mg tablet 5 mg PO BID 30 Days Qty: 60 0RF prednisone 10 mg tablet See Taper PO BID Qty: 42 0RF Taper: predniSONE 60-10 60 mg Daily for 2 Days and 0 Hour 50 mg Daily for 2 Days and 0 Hour 40 mg Daily for 2 Days and 0 Hour 30 mg Daily for 2 Days and 0 Hour 20 mg Daily for 2 Days and 0 Hour 10 mg Daily for 2 Days and 0 Hour pantoprazole [Protonix] 40 mg tablet,delayed release (DR/EC) 40 mg PO DAILY 28 Days Qty: 30 0RF levofloxacin 500 mg tablet 500 mg PO DAILY 3 Days Qty: 3 0RF Continued albuterol sulfate 90 mcg/actuation HFA aerosol inhaler 1 inh inhalation Q4H PRN (Reason: shortness of breath or wheezing) Qty: 8.5 5RF Atrovent HFA 17 mcg/actuation HFA aerosol inhaler 2 puff inhalation Q8H Qty: 12.9 5RF montelukast 10 mg tablet 10 mg PO DAILY Qty: 30 5RF Incruse Ellipta 62.5 mcg/actuation blister with device 1 inh inhalation DAILY Qty: 30 5RF acetaminophen [Tylenol] 325 mg Tablet 650 mg PO QID PRN (Reason: Pain) Discharge Orders: Discharge Order (Routine); Ordered 05/20/24 Ordered By: Marni Medina Other Ambulatory Orders: DME: Oxygen (Order) Location: None Selected Ordered By: Marni Medina Referrals: James Eckert MD [Primary Care Provider] - 7-10 days (We have notified your physician's clinic of the need for a follow-up appointment to be scheduled. If you have not heard from them within the next 2 business days, please call them directly. ) Discharge Diet: Cardiac Discharge Activity: Resume usual activity Patient Instructions: Diltiazem (By mouth), Prednisone (By mouth), Levofloxacin (By mouth) (Levaquin, Levaquin Leva-luis fernando), Apixaban (By mouth), Opioid Safety, Pneumonia Stoplight Discharge Attestations Time Spent in Discharge Care*: greater than 30 min Status at Discharge: Cognitive status at discharge: cognitively intact, Behavioral status at discharge: cooperative, Quality Metrics Clinical Quality Measures [ No reported AMI, CVA or VTE this stay] Coding Level of Care Code Acute Code for Chg Fwd Diagnoses History of alcohol abuse F10.11 Hyponatremia syndrome E87.1 Chronic bilateral low back pain without sciatica M54.50; G89.29 Chronicity: chronic Back pain laterality: bilateral Sciatica presence: without sciatica End stage chronic obstructive pulmonary disease J44.9 Cachexia associated with pulmonary fibrosis J84.10; R64 Smoker F17.200 Sepsis A41.9 Pneumonia J18.9 Hypoxia R09.02 Atrial fib/flutter, transient I48.91; I48.92 Rhinovirus infection B34.8
--- NOTE | 2024-05-20 16:20 | NMCV_ITS ---
NM christina perf SPECT r/s* [id number] Joceline Underwood Age: 69 Gender: F : 1955 Exam Date: 05/20/2024 06:42 Ordering Phys: Marni Medina MD Technologist: KASSY Byrne Exam Location: [facility] Indications: CP STRESS TEST Please see separate stress test report in [facility] for full findings IMAGE PROTOCOL Rest/Stress 1 Lexiscan Day Radiopharmaceutical Dose (mCi) Administration Site Administered by Rest: Tc-99m 10.9 IV KASSY Byrne Sestamibi Stress:Tc-99m 32.6 IV KASSY Fernandez Sestamibi Rest: 20-May-2024 60 Discovery 630 Stress: 20-May-2024 30 Discovery 630 0.4mg Lexiscan. Supine position only as patient was unable to lay prone. SPECT RESULTS Technical Quality: Good Raw Data Analysis: Normal Image Corrections: No attenuation or motion correction applied Summed Stress Score: 8 Summed Rest Score: 13 Summed Difference Score: 0 PERFUSION FINDINGS Small to moderate area of minimal to moderately decreased tracer uptake involving the apical segments and mid inferoseptal segment. No significant reversibility was noted in these regions. FUNCTIONAL RESULTS (calculated via Gated SPECT) Stress Image LV EF (%): 54 Stress EDV (mL):83 TID: 1 Stress ESV (mL):38 FUNCTIONAL FINDINGS: Segmental wall motion analysis revealed a mild hypokinesia of the LV apex. IMPRESSIONS 1. Myocardial perfusion imaging revealing small to moderate area of persistent decreased uptake involving the mid inferoseptal and apical segments suggesting myocardial scarring versus attrition artifact 2. Normal LV ejection fraction 54%. 3. LV wall motion analysis revealed mild hypokinesia of the LV apex. 4. Normal LV volume Low probability for coronary ischemia, based on the above findings Dr Georgia Dang MD FAC (Electronically Signed) Final Date: 20 May 2024 14:13 S
--- NOTE | 2024-05-20 17:13 | PC.NURSE ---
Meds to beds delivered. Just waiting on home oxygen.
== END 2024-05-20 18:41 | disposition home or self-care (01) | DRG 871 ==
LOC: ER 21:43 → MEDSURG 05-18 01:59
PROVIDERS: Internal Medicine; Admitting Provider Internal Medicine; Emergency Provider Emergency Medicine; PCP Family Medicine Adult Medicine; Visit Provider Student in an Organized Health Care Education/Training Program
DX: A41.9 Sepsis, unspecified organism (principal); J18.9 Pneumonia, unspecified organism; E87.1 Hypo-osmolality and hyponatremia; Z68.1 Body mass index [BMI] 19.9 or less, adult; J44.1 Chronic obstructive pulmonary disease with (acute) exacerbation; J44.0 Chronic obstructive pulmonary disease with (acute) lower respiratory infection; E44.0 Moderate protein-calorie malnutrition; B97.10 Unspecified enterovirus as the cause of diseases classified elsewhere; F10.10 Alcohol abuse, uncomplicated; M54.50 Low back pain, unspecified; G89.29 Other chronic pain; J43.9 Emphysema, unspecified; J84.10 Pulmonary fibrosis, unspecified; F17.200 Nicotine dependence, unspecified, uncomplicated; R09.02 Hypoxemia; I48.91 Unspecified atrial fibrillation; R00.0 Tachycardia, unspecified; F32.A Depression, unspecified; Z86.711 Personal history of pulmonary embolism
CPT/HCPCS: 36415; 36600; 71045; 71275; 78452; 80048; 80053; 82803; 83605; 83735; 83880; 84145; 84484; 85025; 85378; 86140; 87040; 87486; 87581; 87633; 93005; 93017; 93306; 94640; 94660; 94664; 94760; 96365; 96367; 96372; 96375; 99291; A9500; J0692; J1650; J2470; J2543; J2785; J2919; J3370; J3490; J7030; J7050; J7614; J7626

== ENCOUNTER → 2024-06-16 15:38 | Outpatient (BNVA) | payer MEDICARE, MEDICAID, SELFPAY | PROVIDERS: PCP Family Medicine; Visit Provider Family Medicine | DX: I48.91 Unspecified atrial fibrillation (principal); I48.92 Unspecified atrial flutter; E87.1 Hypo-osmolality and hyponatremia; E87.6 Hypokalemia | CPT/HCPCS: 80048 ==

== ENCOUNTER → 2024-11-20 11:32 | Outpatient (BNVA) | payer MEDICARE, MEDICAID, SELFPAY | PROVIDERS: PCP Family Medicine; Visit Provider Family Medicine | DX: I48.0 Paroxysmal atrial fibrillation (principal); R73.03 Prediabetes; E53.8 Deficiency of other specified B group vitamins; E87.1 Hypo-osmolality and hyponatremia; E87.6 Hypokalemia; I48.91 Unspecified atrial fibrillation; I48.92 Unspecified atrial flutter | CPT/HCPCS: 85025 ==